=== PATIENT | female | born 1940 | race Caucasian/White ===

== ENCOUNTER 2017-07-10 20:02 | Emergency (ER) | payer OTHER, MEDICARE ==
[~2017-07-10] VITALS: Ht 157.5 cm; Wt 90.4 kg
[~2017-07-10 20:02] MED LIST: ACET-1256 PO; ATOR10TA82 PO; AZEL30SP NAE; CHOL100010 PO; FEXO1TAB58 PO; FLUT0.15 NAE; IBUP-103 PO; KETO0.0216 OP; LISI-787 PO; MULT-506 PO; SALI1SPR3 NAE; [UNRECOGNIZED DRUG - OTHER] PO
[2017-07-10 20:08] VITALS: TEMP 36.7; Ht 157.5 cm; Wt 90.4 kg
[2017-07-10] MEDS ORDERED: LISINOPRIL/HCTZ 20/25MG TAB PO STA (20:30)
--- NOTE | 2017-07-10 20:37 | EMERGENCY ROOM VISIT NOTE ---
History Report prepared by Charisma: Srikanth Mary Under the Supervision of: Dr. Yinka Guadalupe M.D. First contact with patient: 20:20 Chief Complaint: HYPERTENSION Stated Complaint: HIGH BP, FLUSHING, NAUSEA History of Present Illness The patient is a 76 year old female who presents to the Emergency Room with complaints of uncontrolled hypertensive blood pressure readings that she has been experiencing for the past month or so. The patient has a history of hypertension and was on Lisinopril and Hydrochlorothiazide for many years, which controlled her blood pressure well. She had a bout of gout a couple of months ago, and her physician instructed her to stop the Hydrochlorothiazide and start taking Lisinopril and Amlodipine. For 2-3 weeks after taking Amlodipine she felt fatigued and "flushed." Then she had the dosage of Amlodipine increased to 5 mg per day and did not tolerate it well. She stopped this medication two days ago and her blood pressure is rising. She just received a new prescription of Cardizem, but does not want to start this medication. She would like to return to Lisinopril and Hydrochlorothiazide 20 mg and 12.5 BID. She did take 40 mg of Lisinopril this morning. She also notes some worsening upper respiratory congestion over the past week or so. Source of History: patient Onset: 1 month Position: other (Cardiovascular) Quality: other (Hypertensive) Timing: worsening Associated Symptoms: + fatigue Note: Congestion Review of Systems See HPI for pertinent positives & negatives. A total of 10 systems reviewed and were otherwise negative. Past Medical & Surgical Medical Problems: (1) Gout (2) Hypertension (3) Rhinitis Gout Hypertension Rhinitis Family History Diabetes mellitus Hypertension Social History Smoking Status: Former Smoker Marital Status: single Housing Status: lives alone Occupation Status: unemployed Current/Historical Medications Scheduled Atorvastatin (Lipitor), 10 MG PO QAM Azelastine Hcl-Fluticasone Pro (Dymista), 2 SPRY DEMETRIUS BID Cholecalciferol (Vitamin D 1000 Unit), 1,000 INTER.UNIT PO DAILY Fexofenadine-Pseudoephedrine (Devi-D 24 Hour Allergy), 1 TAB PO QPM Fluticasone Propionate (Nasal) (Flonase Allergy Relief), 2 SPRAY DEMETRIUS BID Lisinopril (Zestril), 40 MG PO DAILY Multivitamin (Multivitamin), 1 TAB PO QAM Scheduled PRN Acetaminophen (Tylenol), 500-1,000 MG PO Q8 PRN for Pain Ketotifen Fumarate (Ophth) (Zaditor 0.025% Oph), 1 DROP OP Q8H PRN for ITCHING Saline (Saline Nasal [place]), 1 SPRAY DEMETRIUS DAILY PRN for ALLERGIES Allergies Coded Allergies: Sulfa Antibiotics (Verified Allergy, Severe, WAS TOLD R/T TO BSP?? AND ANAPHYLACTIC REACTION, 07/10/17) Adhesives (Verified Allergy, Unknown, WELTS/RASH, 07/10/17) Aspirin (Verified Allergy, Unknown, RASH, 07/10/17) Grass (Verified Allergy, Unknown, ., 07/10/17) Iodinated Diagnostic Agents (Verified Allergy, Unknown, ANAPHYLAXIS, ) Iodine (Verified Allergy, Unknown, TOPICAL - WELTS, 07/10/17) Molds and Smuts (Verified Allergy, Unknown, ., 07/10/17) POLLEN (Verified Allergy, Unknown, ., 07/10/17) Acetaminophen (Verified Adverse Reaction, Unknown, GI UPSET, 07/10/17) Eggs or Egg-derived Products (Verified Adverse Reaction, Unknown, GI UPSET , 07/10/17) Oxycodone (Verified Adverse Reaction, Unknown, GI UPSET, 07/10/17) Physical Exam Vital Signs Date Time Temp Pulse Resp B/P (MAP) Pulse Ox O2 Delivery O2 Flow Rate FiO2 07/10/17 22:41 76 16 184/95 98 Room Air 07/10/17 22:41 76 16 184/95 98 07/10/17 21:55 74 186/85 96 Room Air 07/10/17 21:06 67 07/10/17 20:45 Room Air 07/10/17 20:08 36.7 79 22 219/102 99 Room Air Physical Exam GENERAL: Patient is in no acute distress. HEENT: No acute trauma, normocephalic atraumatic, mucous membranes moist, no nasal congestion, no scleral icterus. NECK: No stridor, no adenopathy, no meningismus, trachea is midline. LUNGS: Clear to auscultation bilaterally, no wheeze, no rhonchi, breath sounds equal. HEART: Without murmurs gallops or rubs, regular rate and rhythm. ABDOMEN: Soft, nontender, bowel sounds positive, no hernias, no peritonitis. EXTREMITIES: No cyanosis or edema, full range of motion of all the joints without pain or difficulty, no signs for acute trauma. NEUROLOGIC: Oriented x 3, no acute motor or sensory deficits, no focal weakness. No pronator drift or cerebellar dysfunction. SKIN: No rash, no jaundice, no diaphoresis. Medical Decision & Procedures ER Provider Diagnostic Interpretation: Radiology results as stated below per my review and radiologist interpretation: CHEST ONE VIEW PORTABLE CLINICAL HISTORY: 76 years-old Female presenting with EVALUATE ALTERED MENTAL STATUS/WEAKNESS. TECHNIQUE: Portable upright AP view of the chest was obtained. COMPARISON: None. FINDINGS: Examination limited by patient body habitus. Atherosclerosis of the aortic arch. Cardiac silhouette top normal in size. Elevation of the right hemidiaphragm with mildly low right lung volumes. No focal infiltrate. No large effusion or pneumothorax. Apparent opacity at the left lung base likely relates to a prominent pericardial fat pad. Osseous structures normal. Upper abdomen normal. IMPRESSION: 1. No acute cardiopulmonary disease. Electronically signed by: Eric Avila M.D. 07/10/2017 9:05 PM Dictated Date/Time: 07/10/2017 9:04 PM Laboratory Results 07/10/17 21:25 Red Blood Count 4.76, Mean Corpuscular Volume 88.0, Mean Corpuscular Hemoglobin 29.6, Mean Corpuscular Hemoglobin Concent 33.7, Mean Platelet Volume 9.7, Neutrophils (%) (Auto) 72.7, Lymphocytes (%) (Auto) 18.8, Monocytes (%) (Auto) 6.9, Eosinophils (%) (Auto) 0.9, Basophils (%) (Auto) 0.5, Neutrophils # (Auto) 7.68, Lymphocytes # (Auto) 1.99, Monocytes # (Auto) 0.73, Eosinophils # (Auto) 0.09, Basophils # (Auto) 0.05 07/10/17 21:25 Test 07/10/17 20:56 07/10/17 21:25 Urine Color YELLOW Urine Appearance CLOUDY (CLEAR) Urine pH 5.0 (4.5-7.5) Urine Specific [place] 1.016 (1.000-1.030) Urine Protein NEG (NEG) Urine Glucose (UA) NEG (NEG) Urine Ketones NEG (NEG) Urine Occult Blood NEG (NEG) Urine Nitrite NEG (NEG) Urine Bilirubin NEG (NEG) Urine Urobilinogen NEG (NEG) Urine Leukocyte Esterase SMALL (NEG) Urine WBC (Auto) 1-5 /hpf (0-5) Urine RBC (Auto) 0-4 /hpf (0-4) Urine Hyaline Casts (Auto) 1-5 /lpf (0-5) Urine Epithelial Cells (Auto) 10-20 /lpf (0-5) Urine Bacteria (Auto) NEG (NEG) White Blood Count 10.56 K/uL (4.8-10.8) Red Blood Count 4.76 M/uL (4.2-5.4) Hemoglobin 14.1 g/dL (12.0-16.0) Hematocrit 41.9 % (37-47) Mean Corpuscular Volume 88.0 fL (80-100) Mean Corpuscular Hemoglobin 29.6 pg (25-34) Mean Corpuscular Hemoglobin Concent 33.7 g/dl (32-36) Platelet Count 357 K/uL (130-400) Mean Platelet Volume 9.7 fL (7.4-10.4) Neutrophils (%) (Auto) 72.7 % Lymphocytes (%) (Auto) 18.8 % Monocytes (%) (Auto) 6.9 % Eosinophils (%) (Auto) 0.9 % Basophils (%) (Auto) 0.5 % Neutrophils # (Auto) 7.68 K/uL (1.4-6.5) Lymphocytes # (Auto) 1.99 K/uL (1.2-3.4) Monocytes # (Auto) 0.73 K/uL (0.11-0.59) Eosinophils # (Auto) 0.09 K/uL (0-0.5) Basophils # (Auto) 0.05 K/uL (0-0.2) RDW Standard Deviation 42.2 fL (36.4-46.3) RDW Coefficient of Variation 13.2 % (11.5-14.5) Immature Granulocyte % (Auto) 0.2 % Immature Granulocyte # (Auto) 0.02 K/uL (0.00-0.02) Anion Gap 9.0 mmol/L (3-11) Est Creatinine Clear Calc Drug Dose 89.0 ml/min Estimated GFR () 105.2 Estimated GFR (Non- 90.8 BUN/Creatinine Ratio 26.8 (10-20) Calcium Level 8.9 mg/dl (8.5-10.1) Total Bilirubin 0.2 mg/dl (0.2-1) Aspartate Amino Transf (AST/SGOT) 21 U/L (15-37) Alanine Aminotransferase (ALT/SGPT) 30 U/L (12-78) Alkaline Phosphatase 83 U/L (45-117) Troponin I < 0.015 ng/ml (0-0.045) Total Protein 7.4 gm/dl (6.4-8.2) Albumin 3.8 gm/dl (3.4-5.0) Globulin 3.6 gm/dl (2.5-4.0) Albumin/Globulin Ratio 1.1 (0.9-2) Thyroid Stimulating Hormone (TSH) 0.559 uIu/ml (0.300-4.500) Laboratory results reviewed by me. Medications Administered Medications (Trade) Dose Ordered Sig/Solomon Route Start Time Stop Time Status Last Admin Dose Admin HCTZ/Lisinopril (Prinzide 20-25MG Tab) 1 tab NOW STAT PO 07/10/17 20:30 07/10/17 20:33 DC 07/10/17 21:53 1 TAB ECG Indication: other (HTN) Rate (beats per minute): 62 Rhythm: normal sinus Findings: no acute ischemic change, no ectopy Change: Patient's ekg interpreted by me. ED Course 2020: The patient was evaluated in room C3. A complete history and physical exam was performed. 2029: Ordered Lisinopril/HCTZ 1 tablet PO. 2235: Reevaluated the patient. Discussed results and discharge instructions: She verbalized understanding and agreement. She will see her PCP on Thursday and start her old medications. The patient is ready for discharge. Medical Decision Differential Diagnosis includes; medication reaction, essential hypertension, UTI, electrolyte imbalance, anemia, viral illness, sinusitis. There is no leukocytosis or concerning anemia. No significant electrolyte abnormality, kidney failure or hepatitis. The patient appears to be in a euthyroid state. EKG shows a normal sinus rhythm, no acute ischemia. Cardiac enzyme testing times one is not consistent with acute cardiac injury. Urinalysis does not show infection or significant hematuria. Chest film does not show evidence for cardiomegaly, no CHF or pneumonia. The patient presents with high blood pressure. She is having a difficult time using Norvasc. Workup here is benign. The patient was given a dose of lisinopril/hydrochlorothiazide as she had taken before. She tolerated this well. The blood pressure is somewhat improved. I think the patient can be discharged to restart her old blood pressure medication. She will stop the Norvasc and lisinopril and restart the lisinopril /hydrochlorothiazide combination. The patient was reassured. She can return if worsening. She will keep a close watch on her blood pressure. Medication Reconcilliation Current Medication List: was personally reviewed by me Blood Pressure Screening Patient's blood pressure: Elevated blood pressure Blood pressure disposition: Referred to PCP Impression Primary Impression: Hypertension Additional Impression: Medication reaction Scribe Attestation The scribe's documentation has been prepared under my direction and personally reviewed by me in its entirety. I confirm that the note above accurately reflects all work, treatment, procedures, and medical decision making performed by me. Departure Information Dispostion Home / Self-Care Referrals Maddy Bautista M.D. (PCP) Forms HOME CARE DOCUMENTATION FORM, IMPORTANT VISIT INFORMATION, WORK / SCHOOL INSTRUCTIONS Patient Instructions My [facility] [employer] [place] Additional Instructions restart your old blood pressure meds---Lisinopril/HCTZ stop the other meds return for worsening symptoms keep a watch on the pressure as before see gayatri benjamin for a recheck in a few days Problem Qualifiers
--- NOTE | 2017-07-10 21:06 | DIAGNOSTIC IMAGING REPORT ---
CHEST ONE VIEW PORTABLE CLINICAL HISTORY: 76 years-old Female presenting with EVALUATE ALTERED MENTAL STATUS/WEAKNESS. TECHNIQUE: Portable upright AP view of the chest was obtained. COMPARISON: None. FINDINGS: Examination limited by patient body habitus. Atherosclerosis of the aortic arch. Cardiac silhouette top normal in size. Elevation of the right hemidiaphragm with mildly low right lung volumes. No focal infiltrate. No large effusion or pneumothorax. Apparent opacity at the left lung base likely relates to a prominent pericardial fat pad. Osseous structures normal. Upper abdomen normal. IMPRESSION: 1. No acute cardiopulmonary disease. Electronically signed by: Eric Avila M.D. 07/10/2017 9:05 PM Dictated Date/Time: 07/10/2017 9:04 PM
[2017-07-10] MEDS ORDERED: LISI40TA PO (21:15)
[2017-07-10] MEDS ORDERED: KETO0.0216 OP (21:15)
[2017-07-10] MEDS ORDERED: CHOL100027 PO (21:15)
[2017-07-10 21:50] LABS: BASO % 0.5 %; BASO ABS # 0.05 K/uL (0-0.2); EOS % 0.9 %; EOS ABS # 0.09 K/uL (0-0.5); HEMATOCRIT 41.9 % (37-47); HEMOGLOBIN 14.1 g/dL (12.0-16.0); IG# 0.02 K/uL (0.00-0.02); LYMPH % 18.8 %; LYMPH ABS # 1.99 K/uL (1.2-3.4); MEAN CORPUSCULAR HEMOGLOBIN 29.6 pg (25-34); MEAN CORPUSCULAR HGB CONC 33.7 g/dl (32-36); MEAN PLATELET VOLUME 9.7 fL (7.4-10.4); MONO % 6.9 %; MONO ABS # 0.73 K/uL (0.11-0.59); NEUT % 72.7 %; NEUT ABS # 7.68 K/uL (1.4-6.5); PLATELET COUNT 357 K/uL (130-400); RED CELL DISTRIBUTION WIDTH CV 13.2 % (11.5-14.5); RED CELL DISTRIBUTION WIDTH SD 42.2 fL (36.4-46.3); WHITE BLOOD COUNT 10.56 K/uL (4.8-10.8)
[2017-07-10 22:15] LABS: ALBUMIN 3.8 gm/dl (3.4-5.0); ALT/SGPT 30 U/L (12-78); BLOOD UREA NITROGEN 15 mg/dl (7-18); CALCIUM 8.9 mg/dl (8.5-10.1); CARBON DIOXIDE 23 mmol/L (21-32); CREATININE 0.58 mg/dl (0.60-1.20); GLUCOSE 111 mg/dl (70-99); POTASSIUM 3.7 mmol/L (3.5-5.1); SODIUM 139 mmol/L (136-145)
[2017-07-10 22:26] LABS: ALKALINE PHOSPHATASE 83 U/L (45-117); AST/SGOT 21 U/L (15-37); TOTAL PROTEIN 7.4 gm/dl (6.4-8.2)
[2017-07-10 22:41] VITALS: BP 184/95; PULSE 76; O2SAT 98
== END 2017-07-10 22:44 | disposition home or self-care (01) ==
LOC: C.EDB 20:03 → C.EDC 22:44
DX: I10 Essential (primary) hypertension (principal); T46.5X5A Adverse effect of other antihypertensive drugs, initial encounter; M10.9 Gout, unspecified; J31.0 Chronic rhinitis; Z83.3 Family history of diabetes mellitus; Z82.49 Family history of ischemic heart disease and other diseases of the circulatory system; Z87.891 Personal history of nicotine dependence; Z79.899 Other long term (current) drug therapy

== ENCOUNTER 2023-12-26 11:34 | Observation (INO) ==
--- OUTSIDE RECORDS SUMMARY | 2023-12-26 11:45 | External Medical Summary ---
Author Name Unknown Address Unknown Organization [id number]:[facility] [place] - [address] [place] [id number] Laboratory Report Ordering Provider Test Date Status JOHN MURILLO 10/01/2023 10:17:23 Final Observation Date Value Abnormality Reference (Units ) Status Uric Acid 10/01/2023 10:17:23 9.7 Above high normal 2. 4-5.7 (mg/dL) Final Performing Location [facility] [place] - [address] [place] [id number]
--- OUTSIDE RECORDS SUMMARY | 2023-12-26 11:45 | External Medical Summary | Summary of Care ---
Author Name Unknown Organization [facility] Address [address] [place] [address] Phone [phone] Care Team Providers Care Employee Benefits Manager Name Role Phone Alejandro Simmons Primary Care Provider Reason for Visit * Reason Comments Outpatient Testing Encounter Details Date Type Department Care Team (Late st Contact Info) Description 10/01/2023 10:20 AM EDT Laboratory Laboratory, [facility] [address] [place] [id number] [facility] [address] [place] [address] HTN, goal below 130/80; Diabetes mellitus without complication (HCC); Dyslipidemia; Gouty arthritis; Vitamin D deficiency Allergies Active Allergy Reactions Criticality Noted Date Comments Adhesive Tape 12/21/2015 Blister Allopurinol Nausea/vomiting 10/24/2022 Amlodipine Flushing 08/25/2017 Aspirin Rash 02/28/2014 Povidone Iodine 12/21/2015 Colchicine 08/28/2021 Loose stools Egg-Derived Products Other (Please comment) 06/23/2011 No reaction; positive skin test in past/ Environmental 09/29/2000 Grass/molds Iodinated Contrast Media Anaphylaxis High 12/21/2015 Sulfa Antibiotics Rash 02/26/2000 documented as of this encounter (statuses as of 10/01/2023) Medications Medication Sig Dispensed Refills Start Date End Date Status CENTRUM SILVER PO TABS 1 TABLET DAILY 0 Active ZADITOR 0.025 % OP SOLNIndications:All ergic rhinitis Instill into eye. 0 06/23/2011 Act rosamaria NASAL SALINE 0.65 % NA SOLNIndications:Rhi nitis, nonallergic flush each nostril morning and night and every 2-4 hrs as needed for nasal dryness or congestion 1 Bottle 5 03/11/2012 Active Vitamin D, Cholecalciferol, 1000 UNITS CAPSIndications:in evening Take 1 Capsule by mouth in the morning. 0 Active Propylene Glycol 0.6 % Ophthalmic Solution Instill 1 Drop into eye in the morning and 1 Drop in the evening. 0 Active Fexofenadine HCl 180 MG Oral Tablet (Devi)Indication s:takes in evening Take by mouth 1 Tablet in the morning. 90 Tablet 3 08/28/2021 Active Additional Information Patient taking differently:180 mg OralHS, Indications: takes in evening, Reported on 01/31/2023 Acetaminophen ER 650 MG Oral Tablet Extended Release Take 2 Tablets by mouth in the morning and 2 Tablets at noon and 2 Tablets in the evening. 0 Active Fluticasone Propionate 50 MCG/ACT Nasal Suspension (Flonase)Indication s:Rhinitis, nonallergic USE 2 SPRAYS IN EACH NOSTRIL TWO TIMES DAILY 96 mL 3 12/10/2022 Active Lisinopril-hydroCHL OROthiazide 20-12.5 MG Oral Tablet TAKE 1 TABLET BY MOUTH TWO TIMES DAILY 180 Tablet 3 03/22/2023 Active Azelastine HCl 0.1 % Nasal Solution (Astelin)Indication s:Rhinitis, nonallergic SPRAY 2 SPRAYS INTO EACH NOSTRIL TWO TIMES DAILY 90 mL 3 04/20/2023 Active Atorvastatin Calcium 10 MG Oral Tablet (Lipitor)Indication s:Dyslipidemia, goal LDL below 100 TAKE 1 TABLET BY MOUTH EVERY MORNING 90 Tablet 1 05/03/2023 Active predniSONE 20 MG Oral Tablet (Deltasone)Indicati ons:Osteoarthritis of joints of toes of both feet Take 40 mg by mouth for 3-5 days as directed by physician as needed for joint pain. Repeat as needed. 30 Tablet 5 05/11/2023 Active Benzonatate 100 MG Oral CapsuleIndications: Viral URI with cough Take 1 Capsule by mouth 3 times a day as needed for Cough. 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 Senile osteoporosis 03/25/2021 Vitamin D deficiency 08/31/2014 Diverticulosis of colon 08/27/2004 Dyslipidemia 06/24/2001 HTN, goal below 130/80 History of uterine cancer documented as of this encounter (statuses as of 10/01/2023) Resolved Problems Problem Noted Date Diagnosed Date Resolved Date Prediabetes 01/16/2020 01/31/2023 Overview: Per Prediabetes protocol History of colon polyps 03/16/201903/08 Gout of big toe 04/07/2017 03/25/2021 Full thickness macular hole 01/03/2016 03/25/2021 Malaise and fatigue 08/31/2014 04/07/20 17 Screening for thyroid disorder 08/31/2014 11/04/2014 Rhinitis, nonallergic 03/11/20122020 Benign neoplasm of colon 08/27/200402/2019 OCULAR HYPERTENSION 06/24/2001 03/25/20 21 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 PURE HYPERCHOLESTEROLEM 10/07 Allergic rhinitis 03/11/2012 Other disorder of menstruati on and other abnormal bleeding from female genital tract 10/28/2006 Osteoporosis, unspecified documented as of this encounter (statuses as of 10/01/2023) Immunizations Name Administration Dates Next Due COVID-19 mRNA, LNP-s, No Pre serve, 2-Dose Series (Moderna) 08/13/2020,07/10/2020 COVID-19, MRNA-LNP, 23-24, P F, 50 MCG/0.5 mL, 12 YRS AND ABOVE, IM (MODERNA-Spikevax) 03/23/2023 COVID-19, mRNA, LNP-s, PF, B ooster, 100mcg/0.5mg (Moderna) 09/25/2021,04/04/2021 Covid-19, Mrna, Lnp-s, Pf, B ivalent, 50 Mcg, IM, 12 yrs and above (Moderna) 10/31/2022,03/13/2022 Pneumococcal Conjugate Vacc, 13 Valent (Prevnar) 06/26/2016 Pneumococcal Polysaccharide PPV23 (Pneumovax) TD, Preservative Free 06/18/2010 TDAP (age 10 and older)(Boostrix) 06/18/2015 documented as of this encounter Social History Tobacco Use Types Packs/Day Years Used Date Smoking Tobacco: Former Cigarettes 1 30 0 06/08/1962 - 06/08/1992 Smokeless Tobacco: Never Comments:no passive smoke Alcohol Use Standard Drinks/Week Comments Yes 0 (1 standard drink = 0.6 oz pur e alcohol) occasional PHQ-2 Answer Date Recorded PHQ Adult Total Score 0 03/25/2022 Hunger Vital Sign Answer Date Recorded Worried About Running Out of Food in the Last Ye ar Never true 07/18/2019 Ran Out of Food in the Last Year Never true 07/18/2019 Sex and Gender Information Value Date Recorded Sex Assigned at Female 01/16/2020 2:52 PM EDT Gender Identity Female 01/16/2020 2:52 PM EDT Sexual Orientation Straight 01/16/2020 2: 52 PM EDT Job Start Date Occupation Industry Not on file Not on file Not on file documented as of this encounter Plan of Treatment Upcoming Encounters Date Type Department Care Team (Late st Contact Info) Description 10/05/2023 12:20 PM EDT Office Visit Family Practice [facility] [address] [place] [address] Alejandro Simmons DO [address] [place] [address] 07/06/2024 1:00 PM EST Office Visit Rheumatology [place] [id number] [place] [address] Akshat Portillo MD [facility] [place] [address] Pending Results Name Type Priority Associated Diagnoses Date /Time COMPREHENSIVE METABOLIC PANEL Lab Routine Diabetes mellitus without complication (HCC) Dyslipidemia HTN, goal below 130/80 10/01/2023 10:17 AM EDT HEMOGLOBIN A1C Lab Routine Diabetes mellitus without complication (HCC) 10/01/2023 10:17 AM EDT LIPID PANEL WITH DIRECT LDL IF TG IS HIGH Lab Routine Dyslipidemia 10/01/2023 10:17 AM EDT URIC ACID Lab Routine Gouty arthritis 10/01/2023 10:17 AM EDT 25-HYDROXY VITAMIN D Lab Routine Vitamin D deficiency 10/01/2023 10:17 AM EDT ALBUMIN / CREATININE RATIO, URINE Lab Routine Diabetes mellitus without complication (HCC) HTN, goal below 130/80 10/01/2023 10:18 AM EDT Scheduled Procedures Name Priority Associated Diagnoses Date/Ti me COLONOSCOPY FLEXIBLE PROXIMAL DIAGNOSTIC Recall History of colon polyps Health Maintenance Due Date Last Done Comments Diabetic Foot Exam 1960 *BISPHONATE OR OTHER ACCEPTABLE MEDICATION NEEDED FOR OSTEOPOROSIS (REFER TO SMARTSET #1146) 08/30/2021 COLONOSCOPY-EVERY 5 YRS AGES 18-100 11/24/2022 11/24/2017, 11/24/2017, 11/16/2014, Additional history exists Depression Screening 03/25/2023 03/25/2022 HbA1c 04/18/2023 10/16/2022, 03/08, 02/21/2021, Additional history exists GFR 10/17/2023 10/16/2022, 03/08, 02/21/2021, Additional history exists Albumin/Creatinine Ratio 10/25/2023 023, 03/25/2022, 02/27/2021, Additional history exists Diabetic Eye Exam 11/05/2023 11/04/2022, , 12/24/2021, Additional history exists Influenza Vaccine (FLU shot) (Season Ended) 2024 DTaP,Tdap,and Td Vaccines (2 - Td or Tdap) 06/18/2025 06/18/2015, 06/18/2010, 01/27/1996 DXA Scan Discontinued 09/14/2017, 04/0 12/2014, 05/10/2012, Additional history exists Pneumococcal Vaccine: 65+ Years Completed 07/16/2018, 06/26/2016 VITAMIN D LEVEL ONCE IN A LIFETIME-USE SMARTSET# 43137 Completed 08/04/2022, 11/04/2014, 06/25/2011, Additional history exists COVID-19 Vaccine Completed 03/23/2023, , 03/13/2022, Additional history exists GARDASIL-HPV IMMUNIZATION SERIES Aged Out No longer eligible based on patient's age to complete this topic Hepatitis B Aged Out No longer eligi ble based on patient's age to complete this topic MENINGOCOCCAL (MENACTRA/MENVEO) Aged Out No longer eligible based on patient's age to complete this topic Zoster Vaccines Discontinued documented as of this encounter Medical Devices Not on filedocumented as of this encounter Procedures Procedure Name Priority Date/Time Associated Diagnosis Comments DIFFERENTIAL, AUTOMATED Routine 10/01/2023 10:17 AM EDT HTN, goal below 130/80 CBC Routine 10/01/2023 10:17 AM EDT HTN, goal below 130/80 CBC Routine 10/01/2023 10:17 AM EDT HTN, goal below 130/80 documented in this encounter Results * DIFFERENTIAL, AUTOMATED (10/01/2023 10:17 AM EDT) WBC 8.77 4.00 - 10.80 K/uL 10/01/2023 10:25 AM EDT [facility] Neutrophils % 56.7 40.0 - 75.0 % 10/01/2023 10:25 AM EDT [facility] Lymphocytes % 31.2 18.0 - 42.0 % 10/01/2023 10:25 AM EDT [facility] Monocytes % 8.3 1.0 - 11.0 % 10/01/2023 10:25 AM EDT [facility] Eosinophils % 3.3 0.0 - 6.0 % 10/01/2023 10:25 AM EDT [facility] Basophils % 0.5 0.0 - 2.0 % 10/01/2023 10:25 AM EDT [facility]10 Absolute Neutrophils 4.97 1.80 - 7.70 K/uL 10/01/2023 10:25 AM EDT [facility] Absolute Lymphocytes 2.74 1.00 - 4.80 K/ul 10/01/2023 10:25 AM EDT [facility]10 Absolute Monocytes 0.73 0.00 - 1.10 K/uL 10/01/2023 10:25 AM EDT [facility] 57-10 Absolute Eosinophils 0.29 0.00 - 0.70 K/uL 10/01/2023 10:25 AM EDT [facility] 57-10 Absolute Basophils 0.04 0.00 - 0.20 K/uL 10/01/2023 10:25 AM EDT [facility]10 Blood Venous blood specimen / Unknown Venipuncture / Unknown 10/01/2023 10:17 AM EDT 10/01/2023 10:17 AM EDT Alejandro Simmons DO LAB BLOOD ORDER [facility]10 [address] [place] [address] * CBC (10/01/2023 10:17 AM EDT) WBC 8.77 4.00 - 10.80 K/uL 10/01/2023 10:25 AM EDT [facility]10 RBC 4.55 3.85 - 5.15 M/uL 10/01/2023 10:25 AM EDT [facility]10 HGB 13.2 12.0 - 15.3 g/dL 10/01/2023 10:25 AM EDT [facility]10 HCT 41.1 36.0 - 45.2 % 10/01/2023 10:25 AM EDT [facility]10 MCV 90.3 81.5 - 97.5 fL 10/01/2023 10:25 AM EDT [facility]10 MCH 29.0 27.0 - 34.0 pg 10/01/2023 10:25 AM EDT [facility]10 MCHC 32.1 32.0 - 36.0 g/dL 10/01/2023 10:25 AM EDT [facility]10 RDW 13.0 11.5 - 15.5 % 10/01/2023 10:25 AM EDT [facility]10 PLT 375 140 - 400 K/uL 10/01/2023 10:25 AM EDT [facility]10 MPV 9.1 6.6 - 11.1 fL 10/01/2023 10:25 AM EDT [facility]10 Blood Venous blood specimen / Unknown Venipuncture / Unknown 10/01/2023 10:17 AM EDT 10/01/2023 10:17 AM EDT Alejandro Simmons DO LAB BLOOD ORDER [facility] [address] [place] [address] documented in this encounter Visit Diagnoses Diagnosis HTN, goal below 130/80 Unspecified essential hypertension Diabetes mellitus without complication (HCC) Type II or unspecified type diabetes mellitus without mention of complication, not stated as uncontrolled Dyslipidemia Other and unspecified hyperlipidemia Gouty arthritis Gouty arthropathy, unspecified Vitamin D deficiency Unspecified vitamin D deficiency documented in this encounter Care Teams Employee Benefits Manager Relationship Specialty Start Date End Date Alejandro Simmons DO [address] [address] PCP - General Family Medicine 07/07/19 documented as of this encounter
--- OUTSIDE RECORDS SUMMARY | 2023-12-26 11:45 | External Medical Summary | Summary of Care ---
Author Name Unknown Organization [facility] Address [address] [place] [address] Phone [phone] Care Team Providers Care Finisher Accordion Name Role Phone Alejandro Simmons DO Primary Care Provider Reason for Referral * Evaluate & Treat - Unlimited Visits (Within 10 days (routine)) - Authorized Specialty Diagnoses / Procedures Referred By Syed benítez Referred To Contact Podiatry Diagnoses Gouty arthritis Alejandro Simmons DO [address] [facility] [place] [address] Referral ID Status Reason Start Date Expiration Date Visits Requested Visits Authorized [id number] Authorized Specialty Services Required 10/05/[phone] Question Answer Referral Priority Within 10 days (routine) Where should this appointment be scheduled? [facility] Which condition are you referring this patient for? General Foot Pain * Evaluate & Treat - Unlimited Visits (Within 10 days (routine)) - Authorized Specialty Diagnoses / Procedures Referred By Syed benítez Referred To Contact Dietitian / Nutrition Services Diagnoses Goutivett arthritis Alejandro Simmons DO [address] [employer] [facility] [place] [address] Referral ID Status Reason Start Date Expiration Date Visits Requested Visits Authorized [id number] Authorized Specialty Services Required 10/05/[phone] Question Answer Referral Priority Within 10 days (routine) Where should this appointment be scheduled? [facility] What condition is the patient being seen for? All other conditions Other: Other: Use Comment Box - low purine diet, gout Is this for 65 Forward? No Comments Medical Nutrition Therapy Reason for Visit * Reason Comments Return Visit Pt here for 8 mo ret urn. Pt had last covid booster on 04/02/23, questions when to get next. Discuss would like to see Metal Crafts Teacher to understand high Purine foods. Would like Laboratory Tech referral to have Orthotics done as she has bilat feet gouty arthritis. 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 30 Tablet 5 05/11/2023 Active Additional Information Patient not taking.Reported on 10/05/2023 Benzonatate 100 MG Oral CapsuleIndications: Viral URI with cough Take 1 Capsule by mouth 3 times a day as needed for Cough. 30 Capsule 1 07/05/2023 Active Additional Information Patient not taking.Reported on 10/05/2023 documented as of this encounter (statuses as of 10/05/2023) Active Problems Problem Noted Date Diagnosed Date PVC (premature ventricular contraction) 10/05/19 24 Diabetes mellitus without complication Osteoarthritis of ankles, bilateral 10/21/2022 Gouty arthritis 03/26/2021 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 Senile osteoporosis 03/25/2021 Vitamin D deficiency 08/31/2014 Diverticulosis of colon 08/27/2004 Dyslipidemia 06/24/2001 HTN, goal below 130/80 History of uterine cancer documented as of this encounter (statuses as of 10/05/2023) Resolved Problems Problem Noted Date Diagnosed Date [...] as of this encounter (statuses as of 10/05/2023) Immunizations Name Administration Dates Next Due COVID-19 [...] 0 [birth year]08/1960 - 06/08/1992 Smokeless Tobacco: Never Tobacco Cessation:Counseling Given: Not Answered Comments:no passive smoke Alcohol Use Standard Drinks/Week [...] on file documented as of this encounter Last Filed Vital Signs Vital Sign Reading Time Taken Comments Blood Pressure 136/72 10/05/2023 12:17 PM EDT Pulse 66 10/05/2023 12:17 PM EDT Temperature 36.4 C (97.5 F) 10/05/2023 12:17 PM E DT Respiratory Rate 16 10/05/2023 12:17 PM EDT Oxygen Saturation 96% 10/05/2023 12:17 PM EDT Inhaled Oxygen Concentration - - Weight 98.1 kg (216 lb 4 oz) 10/05/2023 12:17 PM EDT Height - - Body Mass Index 38.92 07/05/2023 12:21 PM EST documented in this encounter Progress Notes * Alejandro Simmons, - 10/05/2023 12:37 PM EDT Images from the original note were not included. 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 Pt had last covid booster on 04/02/23, questions when to get next. /Discuss would like to see Metal Crafts Teacher to understand high Purine foods. Would like Laboratory Tech referral to have Orthotics done as she has bilat feet gouty arthritis.) Presents today in f/u Labs are back for review Is compliant with diabetic diet And has kept blood sugar down Feels good overall Denies chest pain, palpitations, etc Physical Exam Vitals: 10/05/23 1217 Temp: 36.4 C (97.5 F) Pulse: 66 Resp: 16 SpO2: 96% BP: 136/72 Physical Exam Constitutional: Appearance: Normal appearance. HENT: Head: Normocephalic and atraumatic. Eyes: Extraocular Movements: Extraocular movements intact. Pupils: Pupils are equal, round, and reactive to light. Cardiovascular: Rate and Rhythm: Bradycardia present. Pulmonary: Effort: Pulmonary effort is normal. Breath sounds: Normal breath sounds. Neurological: General: No focal deficit present. Mental Status: She is alert and oriented to person, place, and time. Psychiatric: Mood and Affect: Mood normal. Behavior: Behavior normal. Wrap-Up Follow-up: Return in about 6 months (around 04/05/2024). | Check-out note: Every other with Thiede if needed for 6 month f/u Time: Total time today was 45 minutes excluding any time spent in the performance of separately billed services. documented in this encounter Nursing Notes * Vandana Lindo LPN - 10/05/2023 12:27 PM EDT The patient has been properly identified by confirmation of name and date of . Chief Complaint Patient presents with Return Visit Pt here for 8 mo return. Pt had last covid booster on 04/02/23, questions when to get next. Discuss would like to see Metal Crafts Teacher to understand high Purine foods. Would like Laboratory Tech referral to have Orthotics done as she has bilat feet gouty arthritis. documented in this encounter Plan of Treatment Upcoming Encounters Date Type Department Care Team (Late st Contact Info) Description 10/14/2023 11:00 AM EDT Nutrition Services Nutrition, [facility] [address] [place] [address] Sariah Mackenzie RDN [address] [place] [address] 10/27/2023 2:00 PM EDT Office Visit Podiatry [facility] [address] [place] [address] Monica Santos DPM [address] [place] [address] 07/06/2024 1:00 PM EST Office Visit Rheumatology [address] [place] [address] Akshat Portillo MD [facility] [place] [address] 10/06/2024 3:40 PM EDT Office Visit Family Practice [facility] [address] [place] [address] Alejandro Simmons DO [address] [place] [address] Scheduled Orders Name Type Priority Associated Diagnoses Orde r Schedule CBC WITH WBC DIFFERENTIAL Lab Routine HTN, goal below 130/80 Expected: 04/02/2024 (Approximate), Expires: 10/04/2024 COMPREHENSIVE METABOLIC PANEL Lab Routine Dyslipidemia, goal LDL below 100 Dyslipidemia Expected: 04/02/2024 (Approximate), Expires: 10/04/2024 HEMOGLOBIN A1C Lab Routine Diabetes mellitus without complication (HCC) Expected: 04/02/2024 (Approximate), Expires: 10/04/2024 ALBUMIN / CREATININE RATIO, URINE Lab Routine Diabetes mellitus without complication (HCC) HTN, goal below 130/80 Expected: 04/02/2024 (Approximate), Expires: 10/04/2024 LIPID PANEL WITH DIRECT LDL IF TG IS HIGH Lab Routine Dyslipidemia, goal LDL below 100 Expected: 04/02/2024 (Approximate), Expires: 10/04/2024 25-HYDROXY VITAMIN D Lab Routine Vitamin D deficiency Expected: 04/02/2024 (Approximate), Expires: 10/04/2024 URIC ACID Lab Routine Gouty arthritis Expected: 04/02/2024 (Approximate), Expires: 10/04/2024 Scheduled Procedures Name Priority Associated Diagnoses Date/Ti me COLONOSCOPY FLEXIBLE PROXIMAL DIAGNOSTIC Recall History of colon polyps Scheduled Referrals Name Type Priority Associated Diagnoses Orde r Schedule NUTRITION-CLINICAL DIETITIAN REFERRAL OP Referral Within 10 days (routine) Gouty arthritis Ordered: 10/05/2023 PODIATRY REFERRAL OP Referral Within 10 d ays (routine) Gouty arthritis Ordered: 10/05/2023 Health Maintenance Due Date Last Done Comments Diabetic Foot Exam 1958 *BISPHONATE OR OTHER ACCEPTABLE MEDICATION NEEDED FOR OSTEOPOROSIS (REFER TO SMARTSET #1146) 08/30/2021 Diabetic Eye Exam 11/05/2023 11/04/2022, , 12/24/2021, Additional history exists Influenza Vaccine (FLU shot) (Season Ended) 2024 HbA1c 04/01/2024 10/01/2023, 10/06, 03/20/2022, Additional history exists Albumin/Creatinine Ratio 09/30/202409/30/ 024, 10/24/2022, 03/25/2022, Additional history exists GFR 09/30/2024 10/01/2023, 10/06, 03/20/2022, Additional history exists Depression Screening 10/04/2024 10/05/2023 DTaP,Tdap,and Td Vaccines (2 - Td or Tdap) 06/18/2025 06/18/2015, 06/18/2010, 01/27/1996 DXA Scan Discontinued 09/14/2017, 12/2014, 05/10/2012, Additional history exists Colonoscopy Discontinued 11/24/2017, 11/06, 11/16/2014, Additional history exists RETIRED - COLONOSCOPY-EVERY 5 YRS AGES 18-100 Discontinued 11/24/2017, 11/24/2017, 11/16/2014, Additional history exists Pneumococcal Vaccine: 65+ Years Completed 07/16/2018, 06/26/2016 COVID-19 Vaccine Completed 03/23/2023, , 03/13/2022, Additional history exists VITAMIN D LEVEL ONCE IN A LIFETIME-USE SMARTSET# [id number] Completed 10/01/2023, 08/04/2022, 11/04/2014, Additional history exists GARDASIL-HPV IMMUNIZATION SERIES Aged [...] Not on filedocumented as of this encounter Visit Diagnoses Diagnosis Diabetes mellitus without complication (HCC)- Primary Type II or unspecified type diabetes mellitus without mention of complication, not stated as uncontrolled Gouty arthritis Gouty arthropathy, unspecified 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
--- OUTSIDE RECORDS SUMMARY | 2023-12-26 11:45 | External Medical Summary ---
Author Name Unknown Address Unknown Organization K01:LABORATORY [facility] [place] - [address] [place] [address] Laboratory Report Ordering Provider Test Date Status JOHN MURILLO 10/01/2023 10:18:35 Final Normal: <30 mg/g creatinine< br/>High: 30-300 mg/g creatinine
Very High: >300 mg/g creatinine
Nephrotic: >2200 mg/g creatinine Observation Date Value Abnormality Reference (Units ) Status Albumin, Urine 10/01/2023 10:18:35 <1.20 (mg/dL) Final Creatinine, Urine 10/01/2023 10:18:35 64 (mg/dL) Final Albumin/Creatinine [Mass Ratio] in Urine 10/01/2023 10:18:35 <19 <30 (mg/g Creat) Final Performing Location [facility]ORY [facility] [place] - [address] [place] [address]
--- OUTSIDE RECORDS SUMMARY | 2023-12-26 11:45 | External Medical Summary ---
Author Name Unknown Address Unknown Organization K0G:[facility]ATORY [facility] [address] - [address] [place] [address] Laboratory Report Ordering Provider Test Date Status JOHN MURILLO 10/01/2023 10:17:23 Final Observation Date Value Abnormality Reference (Units ) Status BUN 10/01/2023 10:17:23 23 Above high normal 6-20 (mg/dL) Final Creatinine 10/01/2023 10:17:23 0.7 0.5-1.0 (mg/dL) Final Glomerular filtration rate/1.73 sq M.predicted [Volume Rate/Area] in Serum, Plasma or Blood by Creatinine-based formula (CKD-EPI) 10/01/2023 10:17:23 82 >=60 (mL/min) Final eGFR is calculated based on the CKD-EPI 2020 equation Sodium 10/01/2023 10:17:23 138 135-146 (m mol/L) Final Potassium 10/01/2023 10:17:23 4.2 3.5-5.1 (m mol/L) Final Cl 10/01/2023 10:17:23 101 98-107 (mm ol/L) Final CO2 10/01/2023 10:17:23 21 Below low normal 22- 32 (mmol/L) Final Anion gap 10/01/2023 10:17:23 16 Above high normal 7- 15 (mmol/L) Final Glucose 10/01/2023 10:17:23 111 70-120 (mg /dL) Final Albumin 10/01/2023 10:17:23 4.3 3.8-5.0 (g /dL) Final AST (Aspartate aminotransferase) 10/01/2023 10:17:23 17 10-35 (U/L) Fin al Alk Phos 10/01/2023 10:17:23 87 35-130 (U/ L) Final Bilirubin, Total 10/01/2023 10:17:23 0.3 <=1 .2 (mg/dL) Final Calcium 10/01/2023 10:17:23 9.7 8.4-10.2 ( mg/dL) Final Protein 10/01/2023 10:17:23 7.1 6.0-8.3 (g /dL) Final ALT (Alanine aminotransferase) 10/01/2023 10:17:23 23 10-35 (U/L) Pro santos Performing Location [facility] [address] - [address] [place] [address]
--- OUTSIDE RECORDS SUMMARY | 2023-12-26 11:45 | External Medical Summary ---
Author Name Unknown Address Unknown Organization [id number][facility] [address] [place] [address] Laboratory Report Ordering Provider Test Date Status JOHN MURILLO 10/01/2023 10:17:23 Final Observation Date Value Abnormality Reference (Units ) Status SYNC LEUKOCYTES IN BLOOD BY AUTOMATED COUNT 10/01/2023 10:17:23 8.77 4.00-10.80 (K/uL) Final Segs 10/01/2023 10:17:23 56.7 40.0-75.0 (%) Final Lymphs % 10/01/2023 10:17:23 31.2 18.0-42.0 (%) Final Monos 10/01/2023 10:17:23 8.3 1.0-11.0 (%) Final Eosinophils 10/01/2023 10:17:23 3.3 0.0-6.0 (%) Final Basos 10/01/2023 10:17:23 0.5 0.0-2.0 (%) Final Absolute Segs 10/01/2023 10:17:23 4.97 1.80-7.70 (K/uL) Final Lymphs, absolute 10/01/2023 10:17:23 2.74 1.00-4.80 (K/ul) Final Monos, Abs 10/01/2023 10:17:23 0.73 0.00-1.10 (K/uL) Final Eos, Abs 10/01/2023 10:17:23 0.29 0.00-0.70 (K/uL) Final Basos, Abs 10/01/2023 10:17:23 0.04 0.00-0.20 (K/uL) Final Performing Location [facility] - [address] [place] [address]
--- OUTSIDE RECORDS SUMMARY | 2023-12-26 11:45 | External Medical Summary | Summary of Care ---
Author Name Unknown Organization [facility] Address [address] [place] [address] Phone [phone] Care Team Providers Care Block Sawyer Name Role Phone Lidia Simmons DO Primary Care Provider Reason for Visit * Reason Comments eRx-Medication Refill Encounter Details Date Type Department Care Team (Late st Contact Info) Description 10/24/2023 [facility]ill [facility] [address] [facility] [address] Delphine Simmons MD [address] [place] [address] Dyslipidemia, goal LDL below 100 Allergies Active Allergy Reactions Criticality Noted Date Comments Adhesive Tape 12/21/2015 Blister Allopurinol Nausea/vomiting 10/24/2022 Amlodipine Flushing 08/25/2017 Aspirin Rash 02/28/2014 Povidone Iodine 12/21/2015 Colchicine 08/28/2021 Loose stools Egg-Derived Products Other (Please comment) 06/23/2011 No reaction; positive skin test in past/ Environmental 09/29/2000 Grass/molds Iodinated Contrast Media Anaphylaxis High 12/21/2015 Sulfa Antibiotics Rash 02/26/2000 documented as of this encounter (statuses as of 10/26/2023) Medications Medication Sig Dispensed Refills Start Date End Date Status CENTRUM SILVER PO TABS 1 TABLET DAILY Active ZADITOR 0.025 % OP SOLNIndications: Allergic rhinitis Instill into eye. 06/23/2011 Active NASAL SALINE 0.65 % NA SOLNIndications: Rhinitis, nonallergic flush each nostril morning and night and every 2-4 hrs as needed for nasal dryness or congestion 1 Bottle 5 03/11/2012 Active Vitamin D, Cholecalciferol, 1000 UNITS CAPSIndications: in evening Take 1 Capsule by mouth in the morning. Active Propylene Glycol 0.6 % Ophthalmic Solution Instill 1 Drop into eye in the morning and 1 Drop in the evening. Active Fexofenadine HCl 180 MG Oral Tablet (Devi)Indicat ions:takes in evening Take by mouth 1 Tablet in the morning. 90 Tablet 3 08/28/2021 Active Additional Information Patient taking differently:180 mg OralHS, Indications: takes in evening, Reported on 01/31/2023 Acetaminophen ER 650 MG Oral Tablet Extended Release Take 2 Tablets by mouth in the morning and 2 Tablets at noon and 2 Tablets in the evening. Active Fluticasone Propionate 50 MCG/ACT Nasal Suspension (Flonase)Indicat ions:Rhinitis, nonallergic USE 2 SPRAYS IN EACH NOSTRIL TWO TIMES DAILY 96 mL 3 12/10/2022 Active Lisinopril-hydro CHLOROthiazide 20-12.5 MG Oral Tablet TAKE 1 TABLET BY MOUTH TWO TIMES DAILY 180 Tablet 3 03/22/2023 Active Azelastine HCl 0.1 % Nasal Solution (Astelin)Indicat ions:Rhinitis, nonallergic SPRAY 2 SPRAYS INTO EACH NOSTRIL TWO TIMES DAILY 90 mL 3 04/20/2023 Active predniSONE 20 MG Oral Tablet (Deltasone)Indic ations:Osteoarth ritis of joints of toes of both feet Take 40 mg by mouth for 3-5 days as directed by physician as needed for joint pain. Repeat as needed. 30 Tablet 5 05/11/2023 Active Additional Information Patient not taking.Reported on 10/05/2023 Benzonatate 100 MG Oral CapsuleIndicatio ns:Viral URI with cough Take 1 Capsule by mouth 3 times a day as needed for Cough. 30 Capsule 1 07/05/2023 Active Additional Information Patient not taking.Reported on 10/05/2023 Atorvastatin Calcium 10 MG Oral Tablet (Lipitor)Indicat ions:Dyslipidemi a, goal LDL below 100 TAKE 1 TABLET BY MOUTH EVERY MORNING 90 Tablet 1 10/26/2023 Active Atorvastatin Calcium 10 MG Oral Tablet (Lipitor)Indicat ions:Dyslipidemi a, goal LDL below 100 TAKE 1 TABLET BY MOUTH EVERY MORNING 90 Tablet 1 05/03/2023 4 Discontinued documented as of this encounter (statuses as of 10/26/2023) Active Problems Problem Noted Date Diagnosed Date PVC (premature ventricular contraction) 10/05/19 24 Diabetes mellitus without complication 3 Osteoarthritis of ankles, bilateral 10/21/2022 Gouty arthritis 03/26/2021 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 Senile osteoporosis 03/25/2021 Vitamin D deficiency 08/31/2014 Diverticulosis of colon 08/27/2004 Dyslipidemia 06/24/2001 HTN, goal below 130/80 History of uterine cancer documented as of this encounter (statuses as of 10/26/2023) Resolved Problems Problem Noted Date Diagnosed Date [...] as of this encounter (statuses as of 10/26/2023) Immunizations Name Administration Dates Next Due COVID-19 [...] on file documented as of this encounter Miscellaneous Notes * Telephone Encounter - Halie Lowe [facility] - 10/26/2023 9:51 AM EDTSigned Prescriptions: Disp Refills Atorvastatin Calcium 10 MG Oral Tablet (Li*90 Tab*1 Sig: TAKE 1 TABLET BY MOUTH EVERY MORNINGAuthorizing Provider: LIDIA SIMMONS User: HALIE LOWE documented in this encounter Plan of Treatment Upcoming Encounters Date Type Department Care Team (Late st Contact Info) Description 10/27/2023 2:00 PM EDT Office Visit Podiatry [facility] [address] [place] [address] Monica Santos DPM [address] [place] [address] 04/07/2024 2:00 PM EDT Office Visit [facility] [address] [place] [address] Lamar Jamil CRNP [address] [place] [address] 07/06/2024 1:00 PM EST Office Visit Rheumatology [address] [place] [address] Akshat Portillo MD [address] [place] [address] [place] [address] 10/06/2024 3:40 PM EDT Office Visit [facility] [address] [place] [address] Lidia Simmons DO [address] [place] [address] Scheduled Procedures Name Priority Associated Diagnoses Date/Ti me COLONOSCOPY FLEXIBLE PROXIMAL DIAGNOSTIC Recall History of colon polyps Health Maintenance Due Date Last Done Comments Diabetic Foot Exam 1960 *BISPHONATE OR OTHER ACCEPTABLE MEDICATION NEEDED FOR OSTEOPOROSIS (REFER TO SMARTSET #1146) 08/30/2021 COVID-19 Vaccine ( season) 2023 03/23/2023, 10/31/2022, 03/13/2022, Additional history exists Diabetic Eye Exam 11/05/2023 11/04/2022, , 12/24/2021, Additional history exists Influenza Vaccine (FLU shot) (Season Ended) 2024 HbA1c 04/01/2024 10/01/2023, 10/06, 03/20/2022, Additional history exists Albumin/Creatinine Ratio 09/30/2024 024, 10/24/2022, 03/25/2022, Additional history exists GFR [...] D LEVEL ONCE IN A LIFETIME-USE SMARTSET# 22647 Completed 10/01/2023, 08/04/2022, 11/04/2014, Additional history exists [...] as of this encounter Visit Diagnoses Diagnosis Dyslipidemia, goal LDL below 100 Other and unspecified hyperlipidemia documented in this encounter Care Teams Block Sawyer Relationship Specialty Start Date End Date Lidia Simmons DO [address] [place] [address] PCP - General Family Medicine 07/07/19 documented as of this encounter
--- OUTSIDE RECORDS SUMMARY | 2023-12-26 11:45 | External Medical Summary | Summary of Care ---
Author Name Unknown Organization [facility] Address [address] [place] [address] Phone [phone] Care Team Providers Care Child Study Team Director Name Role Phone Alejandro Simmons Primary Care Provider Reason for Visit * Reason Comments Rheum Follow Up Follow up - gout Encounter Details Date Type Department Care Team (Latest Contact Info) Description 07/01/2023 2:00 PM EST Office Visit Rheumatology [place] [phone] [employer] [place] [address] Akshat Portillo MD [address] [employer] [place] [address] Gouty arthritis*; Generalized osteoarthritis Allergies Active Allergy Reactions Criticality Noted Date Comments Adhesive Tape 12/21/2015 Blister Allopurinol Nausea/vomiting 10/24/2022 Amlodipine Flushing 08/25/2017 Aspirin Rash 02/28/2014 Povidone Iodine 12/21/2015 Colchicine 08/28/2021 Loose stools Eggs Or Egg-Derived Products Other (Please comment) 06/23/2011 No reaction; positive skin test in past/ Environmental 09/29/2000 Grass/molds Iodinated Contrast Media Anaphylaxis High 12/21/2015 Sulfa Antibiotics Rash 02/26/2000 documented as of this encounter (statuses as of 07/01/2023) Medications Medication Sig Dispensed Refills Start Date End Date Status CENTRUM SILVER PO TABS 1 TABLET DAILY 0 Active ZADITOR 0.025 % OP SOLNIndications:A llergic rhinitis Instill into eye. 0 06/23/2011 A ctive NASAL SALINE 0.65 % NA SOLNIndications:R hinitis, nonallergic flush each nostril morning and night and every 2-4 hrs as needed for nasal dryness or congestion 1 Bottle 5 03/11/2012 Active Vitamin D, Cholecalciferol, 1000 UNITS CAPSIndications:i n evening Take 1 Capsule by mouth in the morning. 0 Active Propylene Glycol 0.6 % Ophthalmic Solution Instill 1 Drop into eye in the morning and 1 Drop in the evening. 0 Active Fexofenadine HCl 180 MG Oral Tablet (Devi)Indicati ons:takes in evening Take by mouth 1 Tablet [...] Active Fluticasone Propionate 50 MCG/ACT Nasal Suspension (Flonase)Indicati ons:Rhinitis, nonallergic USE 2 SPRAYS IN EACH NOSTRIL TWO TIMES DAILY 96 mL 3 12/10/2022 Active Lisinopril-hydroC HLOROthiazide 20-12.5 MG Oral Tablet TAKE 1 TABLET BY MOUTH TWO TIMES DAILY 180 Tablet 3 03/22/2023 Active Azelastine HCl 0.1 % Nasal Solution (Astelin)Indicati ons:Rhinitis, nonallergic SPRAY 2 SPRAYS INTO EACH NOSTRIL TWO TIMES DAILY 90 mL 3 04/20/2023 Active Atorvastatin Calcium 10 MG Oral Tablet (Lipitor)Indicati ons:Dyslipidemia, goal LDL below 100 TAKE 1 TABLET BY MOUTH EVERY MORNING 90 Tablet 1 05/03/2023 Active predniSONE 20 MG Oral Tablet (Deltasone)Indica tions:Osteoarthri tis of joints of toes of both feet Take 40 mg by mouth for 3-5 days as directed by physician as needed for joint pain. Repeat as needed. 30 Tablet 5 05/11/2023 Active Ondansetron HCl 4 MG Oral TabletIndications :Swelling of ankle joint, left,Gouty arthritis,Nausea without vomiting Take 1 Tablet by mouth every 8 hours as needed for Nausea. 30 Tablet 0 10/15/2022 4 Discontinue d(Medicatio n List Clean Up) documented as of this encounter (statuses as of 07/01/2023) Active Problems Problem Noted Date Diagnosed Date Diabetes mellitus without complication 3 Osteoarthritis of ankles, bilateral 10/21/2022 Gouty arthritis 03/26/2021 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 Senile osteoporosis 03/25/2021 Vitamin D deficiency 08/31/2014 Diverticulosis of colon 08/27/2004 Dyslipidemia 06/24/2001 HTN, goal below 130/80 History of uterine cancer documented as of this encounter (statuses as of 07/01/2023) Resolved Problems Problem Noted Date Diagnosed Date [...] as of this encounter (statuses as of 07/01/2023) Immunizations Name Administration Dates Next Due COVID-19 [...] Date Smoking Tobacco: Former Cigarettes 1 30 Q uit: 06/08/1992 Smokeless Tobacco: Never Tobacco Cessation:Counseling Given: [...] Sign Reading Time Taken Comments Blood Pressure - - Pulse - - Temperature 36.5 C (97.7 F) 07/01/2023 1:57 PM ES T Respiratory Rate - - Oxygen Saturation - - Inhaled Oxygen Concentration - - Weight 97.1 kg (214 lb) 07/01/2023 1:57 PM EST Height - - Body Mass Index 38.52 08/04/2022 10:11 AM EST documented in this encounter Progress Notes * Akshat Portillo MD - 07/01/2023 2:22 PM EST Subjective: Patient seen today for further follow up evaluation of osteoarthritis, gout. Since the last visit she did not tolerate colchicine or allopurinol. I had mentioned uloric but given the cardiovascular side effects she decided not to take the medication. She treats her flares with short courses steroids. She has had a couple flare since last visit. Last uric acid was 7.4. She also deals with generalized arthritis. She has some increasing arthritis in her hands. Has a new nodule of the left 2nd DIP.She has a handicap parking placard to fill out. Musculoskeletal ROS: . Abnormal: joint pain . Pain scale (0-10): 0 rated currently Other ROS: . Constitutional: normal . Head normal . Eyes: normal . Ears, nose, throat, mouth: normal . Cardiovascular: normal . Respiratory: normal . Gastrointestinal: normal . Genitourinary: normal All other ROS reviewed and negative Social History: Social History Tobacco Use Smoking status: Former Packs/day: 1.00 Years: 30.00 Additional pack years: 0.00 Total pack years: 30.00 Types: Cigarettes Quit date: 06/08/1992 Years since quittin.0 Smokeless tobacco: Never Tobacco comments: no passive smoke Substance Use Topics Alcohol use: Yes Comment: occasional Vaping/E-Cigarette Use Vaping/E-Cigarette Use Never User Vaping/E-Cigarette Substances Vaping/E-Cigarette Devices Current Outpatient Medications Medication Sig Dispense Refill CENTRUM SILVER PO TABS 1 TABLET DAILY ZADITOR 0.025 % OP SOLN Instill into eye. NASAL SALINE 0.65 % NA SOLN flush each nostril morning and night and every 2-4 hrs as needed for nasal dryness or congestion 1 Bottle 5 Vitamin D, Cholecalciferol, 1000 UNITS CAPS Take 1 Capsule by mouth in the morning. Propylene Glycol 0.6 % Ophthalmic Solution Instill 1 Drop into eye in the morning and 1 Drop in theevening. Fexofenadine HCl 180 MG Oral Tablet (Devi) Take by mouth 1 Tablet in the morning. (Patient taking differently: Take 1 Tablet by mouth at bedtime.) 90 Tablet 3 Acetaminophen ER 650 MG Oral Tablet Extended Release Take 2 Tablets by mouth in the morning and 2 Tablets at noon and 2 Tablets in the evening. Fluticasone Propionate 50 MCG/ACT Nasal Suspension (Flonase) USE 2 SPRAYS IN EACH NOSTRIL TWO TIMESDAILY 96 mL 3 Lisinopril-hydroCHLOROthiazide 20-12.5 MG Oral Tablet TAKE 1 TABLET BY MOUTH TWO TIMES DAILY 180 Tablet 3 Azelastine HCl 0.1 % Nasal Solution (Astelin) SPRAY 2 SPRAYS INTO EACH NOSTRIL TWO TIMES DAILY 90 mL 3 Atorvastatin Calcium 10 MG Oral Tablet (Lipitor) TAKE 1 TABLET BY MOUTH EVERY MORNING 90 Tablet 1 predniSONE 20 MG Oral Tablet (Deltasone) Take 40 mg by mouth for 3-5 days as directed by physician as needed for joint pain. Repeat as needed. 30 Tablet 5 No current facility-administered medications for this visit. Physical Exam: Temp 36.5 C (97.7 F) (Infrared ) | Wt 97.1 kg (214 lb) | BMI 38.52 kg/m | BSA 2.07 m General: alert, no distress, and well nourished Neck: supple, no adenopathy, thyroid normal size, non-tender, without nodularity Lymph: no palpable lymphadenopathy Heart: regular rate & rhythm and no gallops Lungs: clear to auscultation , no rales, wheezes or rhonchi Abdomen: abdomen soft, non-tender, and normal bowel sounds Musculoskeletal Exam: Heberden and Raquel's nodes noted to the hands No synovitis or dactylitis noted Squaring of both thumb bases noted No gouty tophi noted to the feet Assessment: (M10.9) Gouty arthritis (primary encounter diagnosis) (M15.9) Generalized osteoarthritis She did not tolerate allopurinol and does not wish to take Uloric. For now will treat flares with as needed prednisone. Will fill out handicap parking form for her arthritis. Plan: 1. Handicap parking form filled out 2. Will treat gout flares with prednisone as needed 3. Rtc in 1 yr Akshat Portillo MD Department of Rheumatology documented in this encounter Nursing Notes * Pauly Teran LPN - 07/01/2023 1:55 PM EST Chief Complaint Patient presents with Rheum Follow Up Follow up - gout documented in this encounter Plan of Treatment Upcoming Encounters Date Type Department Care Team (Late st Contact Info) Description 10/05/2023 12:20 PM EDT Office Visit Family Practice [facility] [address] [place] [address] Alejandro Simmons DO [address] [place] [address] 07/06/2024 1:00 PM EST Office Visit Rheumatology [place] [phone] [employer] [place] [address] Akshat Portillo MD [facility] [employer] [place] [address] Scheduled Procedures Name Priority Associated Diagnoses Date/Ti me COLONOSCOPY FLEXIBLE PROXIMAL DIAGNOSTIC Recall History of colon polyps Health Maintenance Due Date Last Done Comments Diabetic Foot Exam 1958 Hepatitis B (1 of 3 - Risk 3-dose series) 2002 *BISPHONATE OR OTHER ACCEPTABLE MEDICATION NEEDED FOR OSTEOPOROSIS (REFER TO SMARTSET #1146) 08/30/2021 COLONOSCOPY-EVERY 5 YRS AGES 18-100 11/24/2022 11/24/2017, 11/24/2017, 11/16/2014, Additional history exists Influenza Vaccine (FLU shot) (#1) 2023 Depression Screening 03/25/2023 03/25/2022 HbA1c 04/18/2023 10/16/2022, 03/08, 02/21/2021, Additional history exists GFR 10/17/2023 10/16/2022, 03/08, 02/21/2021, Additional history exists Albumin/Creatinine Ratio 10/25/2023 023, 03/25/2022, 02/27/2021, Additional history exists Diabetic Eye Exam 11/05/2023 11/04/2022, , 12/24/2021, Additional history exists DTaP,Tdap,and Td Vaccines (2 - Td or Tdap) 06/18/2025 06/18/2015, 06/18/2010, 01/27/1996 DXA Scan Discontinued 09/14/2017, 12/2014, 05/10/2012, Additional history exists Pneumococcal Vaccine: 65+ Years Completed 07/16/2018, 06/26/2016 VITAMIN D LEVEL ONCE IN A LIFETIME-USE SMARTSET# [id number] Completed 08/04/2022, 11/04/2014, 06/25/2011, Additional history exists [...] as of this encounter Visit Diagnoses Diagnosis Gouty arthritis- Primary Gouty arthropathy, unspecified Generalized osteoarthritis Generalized osteoarthrosis, unspecified site documented in this encounter Care Teams Child Study Team Director Relationship Specialty Start Date End Date Alejandro Simmons DO [address] [place] [address] PCP - General Family Medicine 07/07/19 documented as of this encounter"
--- OUTSIDE RECORDS SUMMARY | 2023-12-26 11:45 | External Medical Summary ---
Author Name Unknown Address Unknown Organization K0G[facility] [address] [place] [address] Laboratory Report Ordering Provider Test Date Status JOHN MURILLO 10/01/2023 10:17:23 Final Observation Date Value Abnormality Reference (Units ) Status WBC, Total 10/01/2023 10:17:23 8.77 4.00-10.8 0 (K/uL) Final RBC 10/01/2023 10:17:23 4.55 3.85-5.15 (M/uL) Final Hemoglobin 10/01/2023 10:17:23 13.2 12.0-15.3 (g/dL) Final HCT 10/01/2023 10:17:23 41.1 36.0-45.2 (%) Final MCV 10/01/2023 10:17:23 90.3 81.5-97.5 (fL) Final MCH 10/01/2023 10:17:23 29.0 27.0-34.0 (pg) Final MCHC 10/01/2023 10:17:23 32.1 32.0-36.0 (g/dL) Final RDW 10/01/2023 10:17:23 13.0 11.5-15.5 (%) Final Platelets 10/01/2023 10:17:23 375 140-400 (K /uL) Final MPV 10/01/2023 10:17:23 9.1 6.6-11.1 ( fL) Final Performing Location [facility] [address] [place] [address]
--- OUTSIDE RECORDS SUMMARY | 2023-12-26 11:45 | External Medical Summary | Summary of Care ---
Author Name Unknown Organization [facility] Address [address] [place] [address] Phone [phone] Care Team Providers Care Corporate Concierge Name Role Phone Alejandro Simmons DO Primary Care Provider Reason for Visit * Reason Comments NEW PATIENT Bilateral feet * Evaluate & Treat - Unlimited Visits (Within 10 days (routine)) - Authorized Specialty Diagnoses / Procedures Referred By Syed benítez Referred To Contact Podiatry Diagnoses Gouty arthritis Alejandro Simmons DO [address] [place] [address] Referral ID Status Reason Start Date Expiration Date Visits Requested Visits Authorized [id number] Authorized Specialty Services Required 10/05/[phone] Encounter Details Date Type Department Care Team (Latest Contact Info) Description 10/27/2023 2:00 PM EDT Office Visit Podiatry [facility] [address] [place] [address] Monica Santos DPM [address] [place] [address] Bilateral foot pain*; Primary osteoarthritis of both feet Allergies Active Allergy Reactions Criticality Noted Date Comments Adhesive Tape 12/21/2015 Blister Allopurinol Nausea/vomiting 10/24/2022 Amlodipine Flushing 08/25/2017 Aspirin Rash 02/28/2014 Povidone Iodine 12/21/2015 Colchicine 08/28/2021 Loose stools Egg-Derived Products Other (Please comment) 06/23/2011 No reaction; positive skin test in past/ Environmental 09/29/2000 Grass/molds Iodinated Contrast Media Anaphylaxis High 12/21/2015 Sulfa Antibiotics Rash 02/26/2000 documented as of this encounter (statuses as of 10/27/2023) Medications Medication Sig Dispensed Refills Start Date End Date Status CENTRUM SILVER PO TABS 1 TABLET DAILY Active ZADITOR 0.025 % OP SOLNIndications:All ergic rhinitis Instill into eye. 06/23/2011 Act rosamaria NASAL SALINE 0.65 % [...] 04/20/2023 Active predniSONE 20 MG Oral Tablet (Deltasone)Indicati [...] 10/05/2023 Atorvastatin Calcium 10 MG Oral Tablet (Lipitor)Indication s:Dyslipidemia, goal LDL below 100 TAKE 1 TABLET BY MOUTH EVERY MORNING 90 Tablet 1 10/26/2023 Active documented as of this encounter (statuses as of 10/27/2023) Active Problems Problem Noted Date Diagnosed Date PVC (premature ventricular contraction) 10/05/19 24 Diabetes mellitus without complication Osteoarthritis of ankles, bilateral 10/21/2022 Gouty arthritis 03/26/2021 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 Senile osteoporosis 03/25/2021 Vitamin D deficiency 08/31/2014 Diverticulosis of colon 08/27/2004 Dyslipidemia 06/24/2001 HTN, goal below 130/80 History of uterine cancer documented as of this encounter (statuses as of 10/27/2023) Resolved Problems Problem Noted Date Diagnosed Date [...] as of this encounter (statuses as of 10/27/2023) Immunizations Name Administration Dates Next Due COVID-19 [...] on file documented as of this encounter Progress Notes * Monica Santos, GISELE - 10/27/2023 2:00 PM EDT Podiatry New Patient Note [facility] Name: Chayo Dickson : 1940 Date: 10/27/2023 CHIEF COMPLAINT: Pt states she would like to talk about shoes HISTORY OF PRESENT ILLNESS: This patient is a 82 year old female who presents today with complaintsof having difficulty finding shoes. She states she likes sneakers. She does not like heavy or hard shoes. She looks for sneakers. She recently tried [employer] slip ons. She states these feel fine, butthe insert that it comes with does not feel right. She states she thinks she could get more support. She presents today in cro. She has never tried a spacer in her sneaker. Would like to become more active. Would also like to try an OTC insert. Past Medical History: Diagnosis Date Allergic rhinitis Benign neoplasm of colon 08/27/04 Benign neoplasm of colon 07/17/10 diverticulosis, polyps x2,--adenomatous tissue repeat in 4 year Diverticulosis of colon Dyslipidemia, goal LDL below 160 Full thickness macular hole 01/03/2016 Gout 04/08/2017 Gouty arthritis 03/26/2021 HTN, goal below 130/80 HTN, goal below 140/90 Macular hole 12/24/2015 PPV for FTMH OS, Dr. Judd Malignant neoplasm of corpus uteri (HCC) Menopause Osteoporosis, unspecified Other disorder of menstruation and other abnormal bleeding from female genital tract Senile osteoporosis 03/25/2021 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 Past Surgical History: Procedure Laterality Date BIOPSY OF UTERUS LINING BREAST BIOPSY-STEREOTACTIC 1959 left - benign COLONOSCOPY W/ LESION REMOVAL, SNARE 07/17/2010 diverticulosis, polyps x2,--adenomatous tissue repeat in 4 years COLONOSCOPY, DIAGNOSTIC (RECTUM) 11/16/2014 adenomatous polyps, diverticulosis, repeat 3 yrs/COLONOSCOPY FLEXIBLE PROXIMAL DIAGNOSTIC performedby Amy Rios MD at [facility] COLONOSCOPY, DIAGNOSTIC (RECTUM) 11/24/2017 serrated adenomatous polyp, diverticulosis, repeat 5 yrs/COLONOSCOPY FLEXIBLE PROXIMAL DIAGNOSTIC performed by Amy Rios MD at [facility] PARTIAL REMOVAL OF EYE FLUID Left 12/24/2015 PPV for FTMH OS, Dr. Judd REDUCTION OF BREAST 1997 b/l REMOVE CATARACT, INSERT LENS PROSTH Left 11/2015 Dr. Orourke REMOVE TONSILS & ADENOIDS, UNDER 12 Tonsillectomy/Adenoids,<14 Y/O TOTAL ABD HYSTERECTOMY W/WO REMOVAL OF TUBE(S) endometrial carcinoma Family History Problem Relation Name Age of Onset Diabetes Mother Heart Disorder Mother Hypertension Mother Musculo-skeletal Disorder Mother osteoporosis Allergies Mother chronic rhinitis Other (Other) Father gout Heart Disorder Father aortic stenosis Allergies Sister allergic rhinitis Allergies Brother rhinitis Other (CLL) Brother Glaucoma Aunt (Unspecified) X2 Eye Problems None Social History Socioeconomic History Marital status: Single Tobacco Use Smoking status: Former Current packs/day: 0.00 Average packs/day: 1 pack/day for 30.0 years (30.0 ttl pk-yrs) Types: Cigarettes Start date: 06/08/1962 Quit date: 06/08/1992 Years since quittin.4 Smokeless tobacco: Never Tobacco comments: no passive smoke Vaping Use Vaping status: Never Used Substance and Sexual Activity Alcohol use: Yes Comment: occasional Drug use: No Sexual activity: Never Social History Narrative [employer] INFORMATION ENVIRONMENTAL HISTORY: Type of Home: Two Story Type of Heating System: Gas and Forced air Air Conditioning: Yes Central Basement: Dampness, Dehumidifier and No evidence mold, mildew Home have cockroaches: No Irritants in the home: Scented air fresheners Patient's bedroom location: Floor: second Type of misty: Carpeting Beds: Number: 1 Type of beds: Mattress and Box spring Pillows: Number: 2 Type of pillows: Synthetic (hypoallergenic, polyester) Bedroom contains: Plants Pets: none Lives on a farm: No 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 Entered by: Sukhjinder Faulkner MD 03/11/2012 Social Determinants of Health Food Insecurity: Unknown (09/21/2023) Hunger Vital Sign Worried About Running Out of Food in the Last Year: Never true Current Outpatient Medications Medication Sig Dispense Refill [...] NOSTRIL TWO TIMES DAILY 90 mL 3 predniSONE 20 MG Oral Tablet (Deltasone) Take 40 mg by mouth for 3-5 days as directed by physician as needed for joint pain. Repeat as needed. (Patient not taking: Reported on 10/05/2023) 30 Tablet 5 Benzonatate 100 MG Oral Capsule Take 1 Capsule by mouth 3 times a day as needed for Cough. (Patientnot taking: Reported on 10/05/2023) 30 Capsule 1 Atorvastatin Calcium 10 MG Oral Tablet (Lipitor) TAKE 1 TABLET BY MOUTH EVERY MORNING 90 Tablet 1 No current facility-administered medications for this visit. ALLERGIES: Review of patient's allergies indicates: Allergen Reactions Iodinated Contrast Media Anaphylaxis Adhesive Tape Blister Allopurinol Nausea/vomiting Amlodipine Flushing Aspirin Rash Betadine [Povidone Iodine] Colchicine Loose stools Egg-Derived Products Other (Please comment) No reaction; positive skin test in past/ Environmental Grass/molds Sulfa Antibiotics Rash REVIEW OF SYSTEMS: CONSTITUTIONAL: No change in weight, No weakness, No fatigue, and No fevers, sweats, or chills EYE: No recent significant change in vision and No eye pain, redness, discharge EARS: No ear pain and No recent change in hearing NOSE: No history of frequent colds or sinusitis and No nasal stuffiness PULMONARY: No cough, sputum, or hemoptysis and No recent change in breathing CARDIOVASCULAR: No chest pain and No shortness of breath EXTREMITIES: Bilateral foot pain SKIN/INTEGUMENTARY: No edema, No rash, and No itching NEUROLOGIC: Normal balance, No headaches, No seizures, and No weakness PSYCHIATRIC: No depression, No anxiety, and No psychosis FOCUSED PODIATRIC EXAM: Vitals: There were no vitals filed for this visit. General: Patient is awake alert oriented to person place time. No apparent distress. Presents wearing crocs. Normal gait. DIAGNOSTIC STUDIES: 3 views of bilateral feet (08/04/2023) FINDINGS Right foot: Moderate hallux valgus deformity with osseous and soft tissue bunion. Severe 1st MTP osteoarthritis. Chronically marginated erosions about the 1st MTP joint. Chronic fracture deformity ofthe base of the 5th proximal phalanx. Erosive changes about the 4th D IP joint, extending into the 4th middle phalanx, new since the prior exam. Moderate arthrosis of the midfoot plantar calcaneal spur. Right ankle: Small well corticated ossific density adjacent to the medial malleolus, likely sequelaof remote trauma. The ankle mortise is intact. The tibiotalar joint space is preserved. Plantar calcaneal spur. Other findings, as above. Left foot: Moderate hallux valgus deformity with osseous and soft tissue bunion. Moderate 1st MTP osteoarthritis. Chronically marginated erosion at the 1st meta tarsal head. Moderate to severe midfoot arthrosis, most notable at the naviculocuneiform articulations. No new erosions identified. Plantar calcaneal spur. No fracture or dislocation Left ankle: Asymmetric moderate to severe medial tibiotalar joint space narrowing. Question chronically marginated erosion about the medial malleolus. Soft tissue swelling about the ankle. No fracture or dislocation. Plantar calcaneal spur. IMPRESSION IMPRESSION 1. Multifocal arthrosis of the right foot, as detailed above, with erosive changes about the right 4th D IP joint, extending into the 4th middle phalanx, new since the prior exam. Correlate clinically for gouty arthropathy. 2. Multifocal arthrosis of the left foot, most notable at the tibiotalar joint with chronically marginated erosion about the medial malleolus. No new or active erosions identified. ASSESSMENT: Bilateral foot pain OA, adiel PLAN: - Xrays personally reviewed and discussed with the pt. All questions answered. - Discussed OTC inserts and shoes to try. List given. - Also discussed custom inserts. Dasha Camarena information given. - Activity to tolerance - OTC pain medication PRN. - Pt to RTC PRN. Instructed to call with any problems or questions. Monica Santos DPM documented in this encounter Nursing Notes * Maritza Hand LPN - 10/27/2023 1:53 PM EDT Pt presents for new visit, referred by PCP for gouty arthritis, pt states this is taken care of, states she is asking for a consult for shoe recommendations and wonders if she should be wearing orthotics. Has not used orthotics ever. States has problem with L ankle, hx of fractures x 3; uses compression. Had a brace she was unable to use (too big and complex). Looking for a lightweight shoe, not a hard shoe; has tried many different shoes. documented in this encounter Plan of Treatment Upcoming Encounters Date Type Department Care Team (Late st Contact Info) Description 04/07/2024 2:00 PM EDT Office Visit [facility] [address] [place] [address] Lamar Jamil CRNP [address] [place] [address] 07/06/2024 1:00 PM EST Office Visit Rheumatology [address] [place] [address] Akshat Portillo MD [address] [place] [address] [place] [address] 10/06/2024 3:40 PM EDT Office Visit [facility] [address] [place] [address] Alejandro Simmons DO [address] [place] [address] Scheduled Procedures Name Priority Associated Diagnoses Date/Ti me COLONOSCOPY FLEXIBLE PROXIMAL DIAGNOSTIC Recall History of colon polyps Scheduled Referrals Name Type Priority Associated Diagnoses Orde r Schedule PODIATRY REFERRAL OP Referral Within 10 days (routine) Gouty arthritis Ordered: 10/05/2023 Health Maintenance [...] D LEVEL ONCE IN A LIFETIME-USE SMARTSET# [id number] Completed 10/01/2023, 08/04/2022, 11/04/2014, Additional history exists [...] as of this encounter Visit Diagnoses Diagnosis Bilateral foot pain- Primary Pain in limb Primary osteoarthritis of both feet documented in this encounter Care Teams Corporate Concierge Relationship Specialty Start Date End Date Alejandro Simmons DO [address] [place] [address] PCP - General Family Medicine 07/07/19 documented as of this encounter
--- OUTSIDE RECORDS SUMMARY | 2023-12-26 11:45 | External Medical Summary | Summary of Care ---
Author Name Unknown Organization [facility] Address [address] [place] [address] Phone [phone] Care Team Providers Care Ruffler Name Role Phone Alejandro Simmons DO Primary Care Provider Reason for Visit * Reason Onset Date Comments Med Request 07/06/2023 Time sensitive-I nfluenza A Virus Encounter Details Date Type Department Care Team (Late st Contact Info) Description 07/06/2023 Telephone [facility] [address] [facility] [address] Alejandro Simmons DO [address] [place] [address] Med Request (Time sensitive-Influenza A Vi... Allergies Active Allergy Reactions Criticality Noted Date [...] encounter Miscellaneous Notes * Telephone Encounter - Lily Mcknight CRNP - 07/06/2023 3:50 PM EST This was already addressed in a separate encounter. Patient presented to [facility] on 07/05 with 4 days of symptoms. It was explained to her at appt and in result note that she was well out of the window forTami-flu by the time she presented to [facility]. Ira-flu must be started within the first 48 hours. Patient should continue with supportive measures. OTC cold preps, tylenol as needed, stay well hydrated. May continue to take prescribed cough medication ordered at time of visit. Antibiotics are notindicated. * Telephone Encounter - Marcie Josue OSA - 07/06/2023 11:08 AM EST Patient calling requesting medication. Please see call details and advise: [phone] documented in this encounter Plan of Treatment Upcoming Encounters Date Type Department Care Team (Late st Contact Info) Description 10/14/2023 11:00 AM EDT Nutrition Services Nutrition, [facility] [address] [place] [address] Sariah Mackenzie RDN [address] [place] [address] 10/27/2023 2:00 PM EDT Office Visit Podiatry [facility] [address] [place] [address] Monica Santos DPM [address] [place] [address] 07/06/2024 1:00 PM EST Office Visit Rheumatology [address] [place] [address] Akshat Portillo MD [address] [place] [address] [place] [address] 10/06/2024 3:40 PM EDT Office Visit Family Practice [facility] [address] [place] [address] Alejandro Simmons DO [address] [place] [address] Scheduled Procedures Name Priority Associated Diagnoses Date/Ti [...] D LEVEL ONCE IN A LIFETIME-USE SMARTSET# [id number] Completed 10/01/2023, 08/04/2022, 11/04/2014, Additional history exists [...] Not on filedocumented as of this encounter Additional Health Concerns Infection Onset Date Last Indicated Resolved Time Influenza (seasonal) 07/05/2023 07/05/202307/26/2 024 12:21 AM EST documented as of this encounter Care Teams Ruffler Relationship Specialty Start Date End Date Alejandro Simmons DO [address] [place] [address] PCP - General Family Medicine 07/07/19 documented as of this encounter
--- OUTSIDE RECORDS SUMMARY | 2023-12-26 11:45 | External Medical Summary ---
Author Name Unknown Address Unknown Organization K01:[facility] - [address] [facility] [address] Laboratory Report Ordering Provider Test Date Status ROMY VIVAS 07/05/2023 12:46:24 Final Observation Date Value Abnormality Reference (Units ) Status Adenovirus DNA [Presence] in Nasopharynx by SHIRA with non-probe detection 07/05/2023 12:46:24 Negative Negative Final Human coronavirus 229E RNA [Presence] in Nasopharynx by SHIRA with non-probe detection 07/05/2023 12:46:24 Negative Negative Final Human coronavirus HKU1 RNA [Presence] in Nasopharynx by SHIRA with non-probe detection 07/05/2023 12:46:24 Negative Negative Final Human coronavirus NL63 RNA [Presence] in Nasopharynx by SIHRA with non-probe detection 07/05/2023 12:46:24 Negative Negative Final Human coronavirus OC43 RNA [Presence] in Nasopharynx by SHIRA with non-probe detection 07/05/2023 12:46:24 Negative Negative Final SARS-CoV-2 (COVID-19) RNA [Presence] in Nasopharynx by SHIRA with non-probe detection 07/05/2023 12:46:24 Negative Negative Final Human metapneumovirus RNA [Presence] in Nasopharynx by SHIRA with non-probe detection 07/05/2023 12:46:24 Negative Negative Final Rhinovirus+Enterovirus RNA [Presence] in Nasopharynx by SHIRA with non-probe detection 07/05/2023 12:46:24 Negative Negative Final Influenza virus A H3 RNA [Presence] in Nasopharynx by SHIRA with non-probe detection 07/05/2023 12:46:24 Positive Abnormal Negative Final Influenza A virus Subtype H3 detected by PCR (amplified probe). Test results reported to [facility]. Influenza virus B RNA [Prese nce] in Nasopharynx by SHIRA with non-probe detection 07/05/2023 12:46:24 Negative Negative Final Parainfluenza virus 1 RNA [P resence] in Nasopharynx by SHIRA with non-probe detection 07/05/2023 12:46:24 Negative Negative Final Parainfluenza virus 2 RNA [P resence] in Nasopharynx by SHIRA with non-probe detection 07/05/2023 12:46:24 Negative Negative Final Parainfluenza virus 3 RNA [P resence] in Nasopharynx by SHIRA with non-probe detection 07/05/2023 12:46:24 Negative Negative Final Parainfluenza virus 4 RNA [P resence] in Nasopharynx by SHIRA with non-probe detection 07/05/2023 12:46:24 Negative Negative Final Respiratory syncytial virus RNA [Presence] in Nasopharynx by SHIRA with non-probe detection 07/05/2023 12:46:24 Negative Negative F inal Bordetella pertussis.pertuss is toxin promoter region [Presence] in Nasopharynx by SHIRA with non-probe detection 07/05/2023 12:46:24 Negative Negative Final Chlamydophila pneumoniae DNA [Presence] in Nasopharynx by SHIRA with non-probe detection 07/05/2023 12:46:24 Negative Negative Final Mycoplasma pneumoniae DNA [P resence] in Nasopharynx by SHIRA with non-probe detection 07/05/2023 12:46:24 Negative Negative Final Bordetella parapertussis IS1 001 DNA [Presence] in Nasopharynx by SHIRA with non-probe detection 07/05/2023 12:46:24 Negative Negative F inal
The primers that detect Rhinovirus may cross react with some Enterorviruses. The validation of bronchial specimens, tracheal aspirates, and throats for this assay was developed and performance characteristics determined by [employer]. The validation of alternate specimen types has not been cleared or approved by the U.S. Food and Drug Administration (FDA). It has been determined that such clearance or approval is not necessary. Performing Location [facility] - [address] [facility] [place]. [facility] [address]
--- OUTSIDE RECORDS SUMMARY | 2023-12-26 11:45 | External Medical Summary | Summary of Care ---
Author Name Unknown Organization [facility] Address [address] [place] [address] Phone [phone] Care Team Providers Care Collection Systems Foreman Name Role Phone Alejandro Simmons DO Primary Care Provider Reason for Visit * Reason Comments Medical Nutrition Therapy * Evaluate & Treat - Unlimited Visits (Within 10 days (routine)) - Authorized Specialty Diagnoses / Procedures Referred By Syed benítez Referred To Contact Dietitian / Nutrition Services Diagnoses Gouty arthritis Alejandro Simmons DO [address] [place] [address] Referral ID Status Reason Start Date Expiration Date Visits Requested Visits Authorized [id number] Authorized Specialty Services Required 10/05/[phone] Encounter Details Date Type Department Care Team (Latest Contact Info) Description 10/14/2023 11:00 AM EDT Nutrition Services Aleisha Hester Cruz [address] [place] [address] Sariah Mackenzie RDN [address] [place] [address] Gouty arthritis*; Prediabetes; Dietary counseling and surveillance Allergies Active Allergy Reactions Criticality Noted Date Comments Adhesive Tape 12/21/2015 Blister Allopurinol Nausea/vomiting 10/24/2022 Amlodipine Flushing 08/25/2017 Aspirin Rash 02/28/2014 Povidone Iodine 12/21/2015 Colchicine 08/28/2021 Loose stools Egg-Derived Products Other (Please comment) 06/23/2011 No reaction; positive skin test in past/ Environmental 09/29/2000 Grass/molds Iodinated Contrast Media Anaphylaxis High 12/21/2015 Sulfa Antibiotics Rash 02/26/2000 documented as of this encounter (statuses as of 10/14/2023) Medications Medication Sig Dispensed Refills Start Date [...] as of this encounter (statuses as of 10/14/2023) Active Problems Problem Noted Date Diagnosed Date PVC (premature ventricular contraction) 10/05/19 24 Diabetes mellitus without complication Osteoarthritis of ankles, bilateral 10/21/2022 Gouty arthritis 03/26/2021 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 Senile osteoporosis 03/25/2021 Vitamin D deficiency 08/31/2014 Diverticulosis of colon 08/27/2004 Dyslipidemia 06/24/2001 HTN, goal below 130/80 History of uterine cancer documented as of this encounter (statuses as of 10/14/2023) Resolved Problems Problem Noted Date Diagnosed Date [...] as of this encounter (statuses as of 10/14/2023) Immunizations Name Administration Dates Next Due COVID-19 [...] Pressure - - Pulse - - Temperature - - Respiratory Rate - - Oxygen Saturation - - Inhaled Oxygen Concentration - - Weight 97.9 kg (215 lb 12.8 oz) 024 11:05 AM EDT Height 158.8 cm (5' 2.5") 10/14/2023 11 :05 AM EDT Body Mass Index 38.84 10/14/2023 11:05 AM EDT documented in this encounter Patient Instructions * Patient Instructions* Sariah Mackenzie RDN - 10/14/2023 11:47 AM EDT Patient will limit intake of seafood, red meat, and [place] to no more than 2 servings a week of each. Patient will increase activity by doing cubi bike workout at least 2 times a week, 5 minutes per session. Also occasionally do a short workout of free weights or band exercises. Patient will increase fluid intake to at least 40 ounces daily most days of the week. Try tracking this to see exactly how much you are drinking. documented in this encounter Progress Notes * Sariah Mackenzie RDN - 10/14/2023 11:06 AM EDT NUTRITION CONSULT - OUTPATIENT [facility] Name: Chayo Dickson Location: [facility] Date: 10/14/2023 Time: 11:06 AM Patient was identified by name and date. Patient was seen [id number] in the clinic. Reason for Referral: gouty arthritis NUTRITION ASSESSMENT: Client History Patient is an 82 year old female being seen for above issue. States she lives alone. Support System: sister and [id number] Barriers To Learning: None Special Education Needs: None Food/Nutrition-Related History Describes typical diet history/24 hr recall Breakfast: 9:30-10 AM banana sprinkled with cinnamon, 1/2 cup orange and apple, sometimes blueberries, multi-grain Cook Islander muffin with almond butter and local honey, sometimes a little orange marmalade, snack cheese, coffee with 1 packet Stevia in the raw-6 ounces espresso Snacks: none Lunch: 1-1:30 PM yogurt and peanuts or bone broth or BLT multi-grain wrap with small amount of Miracle Whip or rotisserie chicken in a sandwich with Miracle Whip, meek lettuce, raw carrots and radishes and Sun Chips Snacks: none Dinner: 6:30 PM ground or rotisserie chicken or chicken tenderloin sauteed with orange juice or cooking wine, potatoes or pasta or sweet potatoes, peas & carrots or baby patel beans or zucchini oryellow or butternut squash-sometimes as a pasta with vegetables and olive oil, sometimes cinnamon applesauce or watermelon or frozen peaches or cherries or blueberries, occasional ice cream bar or frozen root beer float dessert, carbonated water Snacks: 8-9 PM pretzels or 6-8 dark cherries with no sugar or Fairlife skim milk or shyla covered pretzels or 2-3 joce snaps Drinks: carbonated water with lemon or splash of diet joce rosalind-1 liter or more, coffee, Gatorade zero Restaurant meals: once very 4-6 weeks-Turkish, ie, orange chicken or cheese pizza ([employer]) sometimes with chicken or shrimp Alcohol: Infrequent Tobacco Use: No Diet Recall/Food Logs Indicate: AREAS FOR IMPROVEMENT: High calorie, high fat and/or high sugar selections Inadequate fiber intake Inadequate fluid intake POSITIVE: Portion control Uses calorie free beverages Good meal distribution Food and Nutrient Intake and other pertinent information: Patient reports being confused about whatfoods she should avoid to decrease uric acid level. She has reviews some reputable websites such [facility] and [facility]. She avoids processed foods, red meats, and fast food. She cannot toleratemany foods containing eggs; she occasionally will eat small amounts. Food allergies and/or food intolerances: eggs-mild allergy per pt report Pertinent Medications (Current): Current Outpatient Medications Medication Sig Dispense Refill [...] taking: Reported on 10/05/2023) 30 Capsule 1 No current facility-administered medications for this visit. Supplements: MVI and Vitamin D3 Prior Nutrition Counseling: No prior counseling Physical Activity: Limited due to issue with left ankle. Uses Cubi bike at times, sometimes free weights. Anthropometric Measurements Ht 1.588 m (5' 2.5") | Wt 97.9 kg (215 lb 12.8 oz) | BMI 38.84 kg/m | BSA 2.08 m Wt Readings from Last 5 Encounters: 10/14/23 97.9 kg (215 lb 12.8 oz) 10/05/23 98.1 kg (216 lb 4 oz) 07/05/23 97.3 kg (214 lb 6.4 oz) 07/01/23 97.1 kg (214 lb) 08/26/23 96.3 kg (212 lb 5 oz) Weight Change: stable BMI: BMI Readings from Last 1 Encounters: 10/14/23 38.84 kg/m Nutrition-Focused Physical Findings Overall appearance: overweight/obese Biochemical Data, Medical Tests, and Procedures Latest Reference Range & Units 10/01/23 10:17 Estimated Average Glucose <126 mg/dL 126 (H) Uric Acid 2.4 - 5.7 mg/dL 9.7 (H) Hemoglobin A1C 4.0 - 5.6 % 6.0 (H) (H): Data is abnormally high Rpt: View report in Results Review for more information Above levels reviewed and pt aware. NUTRITION DIAGNOSIS Altered nutrition-related laboratory values related to gout and prediabetes as evidenced by elevated uric acid and elevated glucose and Hgb A1c level. Food and nutrition-related knowledge deficit related to questions about what to eat and uric acid content of foods as evidenced by pt encounter NUTRITION INTERVENTION: NUTRITION EDUCATION Initial/brief nutrition education NUTRITION COUNSELING Strategies Other Education Material: Academy of [employer]etics Nutrition Care Manual Handout -Low Purine Nutrition Therapy Nutrition Prescription: Diet: Consistent Carbohydrate Low Uric Acid Daily Calorie Needs: 9142-1752 Kcals Daily Protein Needs: 70 Grams protein Goals: Patient will limit intake of seafood, red meat, and [place] to no more than 2 servings a week of each. Patient will increase activity by doing cubi bike workout at least 2 times a week, 5 minutes per session. Also occasionally do a short workout of free weights or band exercises. Patient will increase fluid intake to at least 40 ounces daily most days of the week. Try tracking this to see exactly how much you are drinking. Dietitian Action: Encouraged patient to avoid high-uric acid foods-briefly reviewed these with her,referring to above handout. Encouraged her to decrease frequency of high and moderately-high uric acid foods, ie, seafood, or[place], oatmeal, asparagus, cauliflower, spinach, mushrooms, peas, wheat bran, wheat germ. Encouraged her to limit these to twice a week. Recommended she increase her fluid intake and to track this as she cannot tell me exactly what volume of fluid she drinks daily. Briefly discussed monitoring portion sizes of high-CHO foods and eating consistent amounts throughout the day to decrease glucose and Hgb A1c levels. Encouraged her to try to remain active, doing short sessionsof activity as tolerated. Reviewed benefit of activity and exercise on glucose levels. Recommendations to Ordering Provider: Continue current plan of nutrition care. NUTRITION MONITORING AND EVALUATION: The following will be monitored and evaluated at the next visit: None Plan:Patient declined F/U visit; Encouraged pt to contact me via My G if any questions or concerns arise. 45 minutes Medical Nutrition Therapy 15 min (8-22 min) 30 min (23-37 min) 45 min (38-52 min) 60 min (53-67 min) 75 min (68-82 min) 90 min (83-97 min) 105 min (98-113 min) Time In: 1105 (10/14/23 1404) Time Out: 1150 (10/14/23 1404) Sariah Mackenzie RDN NUTRITION [facility] documented in this encounter Plan of Treatment Upcoming Encounters Date Type Department Care Team (Late st Contact Info) Description 10/27/2023 2:00 PM EDT Office Visit Podiatry [facility] [address] [place] [address] Monica Santos DPM [address] [place] [address] 04/07/2024 2:00 PM EDT Office Visit [facility] [address] [place] [address] Lamar Jamil CRNP [address] [place] [address] 07/06/2024 1:00 PM EST Office Visit Rheumatology [place] [address] [place] [address] Akshat Portillo MD [facility] [place] [address] 10/06/2024 3:40 PM EDT Office Visit [facility] [address] [place] [address] Alejandro Simmons, DO [address] [place] [address] Scheduled Procedures Name Priority Associated Diagnoses Date/Ti [...] D LEVEL ONCE IN A LIFETIME-USE SMARTSET# [id number] Completed 10/01/2023, 08/04/2022, 11/04/2014, Additional history exists [...] Diagnosis Gouty arthritis- Primary Gouty arthropathy, unspecified Prediabetes Other abnormal glucose Dietary counseling and surveillance Dietary surveillance and counseling documented in this encounter Care Teams Collection Systems Foreman Relationship Specialty Start Date End Date Alejandro Simmons DO [address] [place] [address] PCP - General Family Medicine 07/07/19 documented as of this encounter
--- OUTSIDE RECORDS SUMMARY | 2023-12-26 11:45 | External Medical Summary | Summary of Care ---
Author Name Unknown Organization [facility] Address [address] [place] [address] Phone [phone] Care Team Providers Care Right Of Way Agent Name Role Phone Alejandro Simmons Primary Care Provider Reason for Visit * Reason Comments Acute Pt here for complain ts of cough and congestion since . Encounter Details Date Type Department Care Team (Latest Contact Info) Description 07/05/2023 11:40 AM EST Convenient Care Visit [facility] [address] [place] [address] Lily Mcknight CRNP [address] [facility] [address] Viral URI with cough* Allergies Active Allergy Reactions Criticality Noted Date [...] as of this encounter (statuses as of 07/05/2023) Medications Medication Sig Dispensed Refills Start Date [...] as of this encounter (statuses as of 07/05/2023) Active Problems Problem Noted Date Diagnosed Date Diabetes mellitus without complication Osteoarthritis of ankles, bilateral 10/21/2022 Gouty arthritis 03/26/2021 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 Senile osteoporosis 03/25/2021 Vitamin D deficiency 08/31/2014 Diverticulosis of colon 08/27/2004 Dyslipidemia 06/24/2001 HTN, goal below 130/80 History of uterine cancer documented as of this encounter (statuses as of 07/05/2023) Resolved Problems Problem Noted Date Diagnosed Date [...] as of this encounter (statuses as of 07/05/2023) Immunizations Name Administration Dates Next Due COVID-19 [...] Sign Reading Time Taken Comments Blood Pressure 132/68 07/05/2023 12:21 PM EST Pulse 72 07/05/2023 12:21 PM EST Temperature 36.5 C (97.7 F) 07/05/2023 12:[address] Respiratory Rate 16 07/05/2023 12:21 PM EST Oxygen Saturation 94% 07/05/2023 12:21 PM EST Inhaled Oxygen Concentration - - Weight 97.3 kg (214 lb 6.4 oz) 07/05/2023 12:21 PM EST Height 158.8 cm (5' 2.5") 07/05/2023 12:21 PM ES T Body Mass Index 38.59 07/05/2023 12:21 PM EST documented in this encounter Progress Notes * Lily Mcknight CRNP - 07/05/2023 12:28 PM EST Subjective Chayo Dickson is a 82 year old female that presents for Acute (Pt here for complaints of cough and congestion since .) HPI: Patient presents with acute complaints of runny nose, nasal/sinus congestion, sore throat. Shealso endorses a moist productive cough with clear mucous. She has been experiencing night sweats, but takes Tylenol around the clock due to OA. She denies any documented fever. REVIEW OF SYSTEMS: See HPI for pertinent positives. All others negative other than those noted in the HPI. Objective BP 132/68 (BP Site: Left Arm, BP Position: Sitting, BP Cuff Size: Large) | Pulse 72 | Temp 36.5 C(97.7 F) (Tympanic) | Resp 16 | Ht 1.588 m (5' 2.5") | Wt 97.3 kg (214 lb 6.4 oz) | SpO2 94% | BMI 38.59 kg/m | BSA 2.07 m Body mass index is 38.59 kg/m. BP Readings from Last 3 Encounters: 07/05/23 132/68 01/31/23 138/74 10/15/22 142/82 Wt Readings from Last 3 Encounters: 07/05/23 97.3 kg (214 lb 6.4 oz) 07/01/23 97.1 kg (214 lb) 01/31/23 96.3 kg (212 lb 5 oz) Physical Exam Constitutional: Appearance: Normal appearance. HENT: Head: Normocephalic and atraumatic. Right Ear: Tympanic membrane, ear canal and external ear normal. Left Ear: Tympanic membrane, ear canal and external ear normal. Nose: Congestion and rhinorrhea present. Mouth/Throat: Mouth: Mucous membranes are moist. Pharynx: Oropharynx is clear. Eyes: Extraocular Movements: Extraocular movements intact. Pupils: Pupils are equal, round, and reactive to light. Cardiovascular: Rate and Rhythm: Normal rate and regular rhythm. Pulses: Normal pulses. Heart sounds: Normal heart sounds. Pulmonary: Effort: Pulmonary effort is normal. Breath sounds: Normal breath sounds. Musculoskeletal: General: Normal range of motion. Cervical back: Normal range of motion and neck supple. Skin: General: Skin is warm and dry. Neurological: General: No focal deficit present. Mental Status: She is alert and oriented to person, place, and time. Psychiatric: Mood and Affect: Mood normal. Behavior: Behavior normal. Thought Content: Thought content normal. Judgment: Judgment normal. None Assessment and plan 1. Viral URI with cough -may continue Tylenol or Ibuprofen for symptom management -Continue antihistamine. Given history of HTN, recommend use of Coricidin HBR for symptom relief. -Antibiotics are not indicated -Will notify with results of resp. Panel - RESPIRATORY PATHOGEN PANEL, PCR; Future - Benzonatate 100 MG Oral Capsule; Take 1 Capsule by mouth 3 times a day as needed for Cough. Dispense: 30 Capsule; Refill: 1 Follow up Follow Up: Return if symptoms worsen or fail to improve. Total time today including reviewing chart before the visit, pertinent labs, imaging reports, face to face time, and documentation time was 16 minutes. The above was discussed and understanding was expressed. YANELY Crooks documented in this encounter Nursing Notes * Danuta Miner LPN - 07/05/2023 12:18 PM EST Patient spelled last name and verbalized birthdate to verify identity. Chief Complaint Patient presents with Acute Pt here for complaints of cough and congestion since . Pt states that she did 2 home covid test and both came back negative documented in this encounter Plan of Treatment Upcoming Encounters Date Type Department Care Team (Late st Contact Info) Description 10/05/2023 12:20 PM EDT Office Visit Family Practice [facility] [address] [place] [address] Alejandro Simmons DO [address] [place] [address] 07/06/2024 1:00 PM EST Office Visit Rheumatology [place] [address] [place] [address] Akshat Portillo MD [facility] [place] [address] Pending Results Name Type Priority Associated Diagnoses Date /Time RESPIRATORY PATHOGEN PANEL, PCR Lab Routine Viral URI with cough 07/05/2023 12:46 PM EST Scheduled Orders Name Type Priority Associated Diagnoses Orde r Schedule RESPIRATORY PATHOGEN PANEL, PCR Lab Routine Viral URI with cough Expected: 07/05/2023, Expires: 07/05/2024 Scheduled Procedures Name Priority Associated Diagnoses Date/Ti [...] D LEVEL ONCE IN A LIFETIME-USE SMARTSET# [id number] Completed 08/04/2022, 11/04/2014, 06/25/2011, Additional history exists [...] as of this encounter Visit Diagnoses Diagnosis Viral URI with cough- Primary Acute upper respiratory infections of unspecified site documented in this encounter Care Teams Right Of Way Agent Relationship Specialty Start Date End Date Alejandro Simmons DO [address] [place] [address] PCP - General Family Medicine 07/07/19 documented as of this encounter
--- OUTSIDE RECORDS SUMMARY | 2023-12-26 11:45 | External Medical Summary ---
Author Name Unknown Address Unknown Organization [id number]:[facility] [place] [address] [place] [address] Laboratory Report Ordering Provider Test Date Status JOHN MURILLO 10/01/2023 10:17:23 Final Deficient: <20 ng/mL
Ins ufficient: 20-29 ng/mL
Recommended/Optimum:30-50 ng/mL

Vitamin D intoxication is rare. If suspicious of Vitamin D toxicity, evaluation of serum Calcium and PTH is recommended. Observation Date Value Abnormality Reference (Units ) Status 25-OH Vitamin D total 10/01/2023 10:17:23 35 >19 (ng/mL) Final Performing Location [facility] [place] [address] [place] [address]
--- OUTSIDE RECORDS SUMMARY | 2023-12-26 11:45 | External Medical Summary ---
Author Name Unknown Address Unknown Organization [id number]:[facility] [place] - [facility] [address] [facility] [address] Laboratory Report Ordering Provider Test Date Status JOHN MURILLO 10/01/2023 10:17:23 Final Observation Date Value Abnormality Reference (Units ) Status HbA1C 10/01/2023 10:17:23 6.0 Above high normal 4. 0-5.6 (%) Final The use of HbA1c to monitor glycemic status is based on normal hemoglobin and HbA composition. This test should not be used in patients with abnormal hemoglobin that affects the half life of the red blood cell or the in vivo glycation rates. Glucose, estimated average 10/01/2023 10:17:23 126 Above high normal <126 (mg/dL) Pro santos Performing Location [facility] [place] - [address] [facility] [address]
--- NOTE | 2023-12-26 11:54 | Emergency Department Note ---
Impression & Plan Acute CVA (cerebrovascular accident), Left hand weakness ED Provider Note Provider: Uday Carbajal MD DATE OF SERVICE: 12/26/2023 CHIEF COMPLAINT: Left hand clumsiness HISTORY OF PRESENT ILLNESS: Patient is a 83-year-old female history of hypertension and allergies presenting here today reporting that around 8 AM she got up and took Tylenol arthritis and was normal. Went back to bed and woke up at 930 when her cell phone alarm went off and was unable to grasp and hold her cell phone and left hand well. States her left hand feels off and is not working quite as well. Denies any headache or speech issues or leg issues. Denies any issue with the right hand. Denies that it really feels tingly or numb. Just feels a bit off. Denies any acute vision change. No history of similar. States he did not sleep on that side or on that arm. Has been persistent the last hour to have some concern for possible CVA/stroke. Evidently allergic to aspirin by her report PAST MEDICAL HISTORY: As noted above MEDICATIONS: Reviewed home medications SOCIAL HISTORY: Non-smoker PHYSICAL EXAM: GENERAL: alert and oriented in no acute distress on stretcher Head: normocephalic and atraumatic EYES: No injection, discharge or icterus. PERRL, EOMI. NECK: Trachea midline. Supple. ENT: Mucous membranes pink and moist. LUNGS: Airway patent. No retractions. Breath sounds clear HEART: Regular rate and rhythm. No chest wall tenderness ABDOMEN: Soft and non-tender, without guarding or rebound. SKIN: Acyanotic, warm, dry, without rashes EXTREMITIES: Without swelling, tenderness or deformity 2+ left radial pulse. NEUROLOGICAL: No aphasia. No facial droop or slurred speech. Normal strength and tone in the extremities. Sensation to gross touch normal. Ambulatory. No pronator drift. Little bit of subtle left eyahoo-ol-nhbu ataxia. No yzeo-hg-tyxl ataxia. EK beats per min. Normal sinus rhythm. No PVC or PAC. No acute ST segment elevation or depression with a left axis and a QTc of 399. CONTINUOUS CARDIAC MONITORING: was ordered and showed a heart rate of 60s-70s bpm in normal sinus rhythm Patient's laboratory studies and imaging reviewed. Differential includes Infection, dehydration, metabolic abnormality, hypo/hyperglycemia, electrolyte disturbance, anemia, hypoxia, cardiac sources, intracerebral event, toxicologic, neurologic, as well as other pathologies. IMPRESSION/MEDICAL DECISION MAKING: Little bit of subtle left finger-nose ataxia and some issues with hand question of subtle CVA. Last known well 8 AM and arrives at almost 12 outside the window for thrombolytics especially with such minimal symptoms. Discussed the patient and she is agree. Head CT obtained without significant findings. Significant allergy profile including contrast materials in the past as well as aspirin. Will obtain Noncon head CT to exclude hemorrhage or mass which I feel is less likely. Again shared decision making not a candidate for thrombolytics. Will plan to proceed with MRI to evaluate for possible subtle CVA causing the issues with her left hand. Basic blood work obtained. No significant electrolyte abnormality or signs of renal dysfunction. Normal blood counts. CT head per radiology without acute findings of mass or blood. MRI of the brain per radiology shows a very small punctate area of restricted diffusion consistent with a small area of infarct in the right lateral frontal lobe. This likely explains her hand issue. Given this positive finding discussed with the patient staying for further stroke workup and evaluation. Hospitalist was consulted. DIAGNOSIS: Left hand weakness, CVA DISPOSITION: Hospitalist will evaluate Patient was agreeable with this plan. Past Med/Surg History Problem List (Updated 12/26/23 @ 14:38 by Uday Carbajal M.D.) Left hand weakness (Acute) Acute CVA (cerebrovascular accident) (Acute) Gout (Chronic) Hypertension (Chronic) Rhinitis (Chronic) Social History Smoking Status: Former smoker Preferred Language: Cameroonian Feels Safe at Home: Yes Allergies Allergies Allergy/AdvReac Type Severity Reaction Status Date / Time Sulfa (Sulfonamide Allergy Severe WAS TOLD Verified 03/02/22 12:01 Antibiotics) R/T TO BSP?? AND ANAPHYLACTIC REACTION adhesive Allergy Unknown WELTS/RASH Verified 03/02/22 12:01 aspirin Allergy Unknown RASH Verified 03/02/22 12:01 grass pollen-perennial rye, Allergy Unknown . Verified 03/02/22 12:01 standar Iodinated Contrast Media Allergy Unknown ANAPHYLAXIS Verified 03/02/22 12:01 iodine Allergy Unknown TOPICAL - Verified 03/02/22 12:01 WELTS mold Allergy Unknown . Verified 03/02/22 12:01 pollen extracts Allergy Unknown . Verified 03/02/22 12:01 acetaminophen AdvReac Unknown GI UPSET Verified 03/02/22 12:01 Egg Derived AdvReac Unknown GI UPSET Verified 03/02/22 12:01 oxycodone AdvReac Unknown GI UPSET Verified 03/02/22 12:01 Home Meds Home Medications Medication Instructions Recorded Confirmed atorvastatin 10 mg tablet 10 mg PO QAM 03/02/22 03/02/22 azelastine 137 mcg (0.1 %) nasal 2 spray intranasal BID 03/02/22 03/02/22 spray cholecalciferol (vitamin D3) 25 25 mcg PO DAILY 03/02/22 03/02/22 mcg (1,000 unit) tablet (Vitamin D3) fluticasone propionate 50 2 spray intranasal BID PRN 03/02/22 03/02/22 mcg/actuation nasal Congestion spray,suspension lisinopril 20 1 tab PO BID 03/02/22 03/02/22 mg-hydrochlorothiazide 12.5 mg tablet multivitamin 1 tab PO DAILY 03/02/22 03/02/22 Results & Data (ED) Vital Signs Vital Signs - 24 hr 12/26/23 11:37 12/26/23 11:50 Pulse Rate 71 Respiratory Rate 20 Blood Pressure 183/85 H Blood Pressure Mean 117 Pulse Oximetry 95 Oxygen Delivery Method Room Air Room Air Sepsis Recent Fever Within 48 Hours No Sepsis New/Unexplained Change in Mental Status No Sepsis Action Taken by Nursing No Action Required Laboratory Data 12/26/23 11:56 12/26/23 11:56 Lab Results 12/26/23 Range/Units 11:56 WBC 8.17 (4.8-10.8) K/ul RBC 4.66 (4.20-5.40) M/uL Hgb 13.3 (12.0-16.0) g/dl Hct 41.3 (37.0-47.0) % MCV 88.6 (80.0-100.0) fL MCH 28.5 (25.0-34.0) pg MCHC 32.2 (32.0-36.0) g/dL RDW Std Deviation 41.7 (36.4-46.3) fL RDW Coeff of Chase 12.9 (11.5-14.5) % Plt Count 389 (130-400) K/uL MPV 9.0 L (9.4-12.4) fL Immature Gran % (Auto) 0.4 % Neut % (Auto) 65.3 % Lymph % (Auto) 23.0 % Smyth % (Auto) 8.0 % Eos % (Auto) 2.6 % Baso % (Auto) 0.7 % Neut # (Auto) 5.34 (1.40-6.50) K/uL Lymph # (Auto) 1.88 (1.20-3.40) K/uL Smyth # (Auto) 0.65 H (0.11-0.59) K/uL Eos # (Auto) 0.21 (0.00-0.50) K/uL Baso # (Auto) 0.06 (0.00-0.20) K/uL Immature Gran # (Auto) 0.03 (0.01-0.20) K/uL PT 10.3 (9.0-12.0) Seconds INR 0.9 (0.9-1.1) APTT 25 (21-31) Seconds PTT Ratio 0.9 Sodium 139 (136-145) mmol/L Potassium 4.0 (3.5-5.1) mmol/L Chloride 103 (98-107) mmol/L Carbon Dioxide 27 (21-32) mmol/L Anion Gap 9 (3-11) BUN 20 (6-23) mg/dl Creatinine 0.69 (0.6-1.2) mg/dl Est Cr Clr Drug Dosing 72.8 ml/min Est GFR ( Amer) 94.6 ml/min Est GFR (Non-Af Amer) 81.6 ml/min BUN/Creatinine Ratio 29.0 H (10-20) Glucose 131 H (70-99(Fasting)) mg/dl Calcium 9.5 (8.6-10.3) mg/dl Magnesium 1.7 (1.7-2.4) mg/dl Total Bilirubin 0.5 (0.2-1.0) mg/dl AST 18 (13-39) U/L ALT 22 (7-52) U/L Alkaline Phosphatase 62 (34-104) U/L Troponin I High Sens 4.2 (0-14) pg/ml Total Protein 7.2 (6.0-8.3) gm/dl Albumin 4.3 (3.4-5.0) gm/dl Globulin 2.9 (2.5-4.0) gm/dl Albumin/Globulin Ratio 1.5 (0.9-2) Imaging Data Radiologist's Impression: Brain MRI 12/26/23 11:52 MR brain wo con CLINICAL HISTORY: L hand weakness TECHNIQUE: Multiplanar and multisequence MR images of the brain were obtained without intravenous contrast. Comparison: Comparison is made to MRI brain 12/26/2023 FINDINGS: Punctate focus of restricted diffusion is seen in the right lateral frontal lobe (series 4 image 15 ). The white matter is unremarkable. The ventricular system is normal in appearance. No mass is seen. There is no mass effect or midline shift. There is no evidence of acute intraparenchymal hemorrhage. No extra axial fluid collections are seen. The corpus callosum, pituitary gland, and cerebellar tonsils appear grossly unremarkable. Flow voids of the major intracranial arterial vessels are identified. The imaged portions of the paranasal sinuses, mastoid air cells, and orbits are unremarkable. IMPRESSION: Punctate focus of restricted diffusion in the right lateral frontal lobe may represent a tiny infarct. No evidence of hemorrhagic transformation. ACT 112: Negative or not required by law. Electronically signed by: Nikunj Be M.D. 12/26/2023 2:[address] 12/26/23 11:52 CT head/brain wo con CLINICAL HISTORY: L hand weakness Technique: Contiguous axial CT images of the head were acquired from the base of the skull to the vertex without intravenous contrast administration. Images were viewed in brain, subdural and bone windows. Automated dose lowering techniques and/or adjustment according to patient size were utilized for this exam. Comparison: None available at the time of this dictation. Findings: The ventricles, basal cisterns, and cerebral sulci are normal. There is no acute intracranial hemorrhage or evidence of acute territorial infarction. Neither mass effect, shift of the midline structures, nor abnormal extra-axial fluid collections are shown. Imaged portions of the paranasal sinuses and mastoid air cells are clear. The orbits appear normal. There are no acute fractures of the calvaria or scalp swelling. Impression: No acute intracranial hemorrhage, no evidence of acute territorial infarction or other acute intracranial disease process. ACT 112: Negative or not required by law. Electronically signed by: Nikunj Be M.D. 12/26/2023 12:55 PM Discharge Plan Visit Data Chief Complaint: Stroke/CVA Symptoms Stated Complaint: L HAND WEAKNESS ED Provider: Uday Carbajal Discharge Problem: Acute CVA (cerebrovascular accident), Left hand weakness Patient Disposition: Being Evaluated by Hospitalist Forms Stand Alone Forms: My [facility] Prescriptions Prescriptions: No Action multivitamin Tablet 1 tab PO DAILY atorvastatin 10 mg tablet 10 mg PO QAM lisinopril-hydrochlorothiazide 20-12.5 mg tablet 1 tab PO BID azelastine 137 mcg (0.1 %) aerosol,spray 2 spray INTRANASAL BID fluticasone propionate 50 mcg/actuation spray,suspension 2 spray INTRANASAL BID PRN (Reason: Congestion) cholecalciferol (vitamin D3) [Vitamin D3] 25 mcg (1,000 unit) Tablet 25 mcg PO DAILY Referrals Referrals: Alejandro Simmons DO [Primary Care Provider] -
[2023-12-26 12:08] LABS: Basophils # (auto) 0.06 K/uL (0.00-0.20); Basophils % (auto) 0.7 %; Eosinophils # (auto) 0.21 K/uL (0.00-0.50); Eosinophils % (auto) 2.6 %; Hematocrit (blood only) 41.3 % (37.0-47.0); Hemoglobin 13.3 g/dl (12.0-16.0); Immature Granulocytes # (auto) 0.03 K/uL (0.01-0.20); Immature Granulocytes % (auto) 0.4 %; Lymphocytes # (auto) 1.88 K/uL (1.20-3.40); Mean Corpuscular Hemoglobin 28.5 pg (25.0-34.0); Mean Corpuscular Hgb Conc 32.2 g/dL (32.0-36.0); Mean Corpuscular Volume 88.6 fL (80.0-100.0); Monocytes # (auto) 0.65 K/uL (0.11-0.59); Neutrophils # (auto) 5.34 K/uL (1.40-6.50); Neutrophils % (auto) 65.3 %; Platelet Count 389 K/uL (130-400); RDW Coefficient of Variation 12.9 % (11.5-14.5); RDW Standard Deviation 41.7 fL (36.4-46.3); Red Blood Count 4.66 M/uL (4.20-5.40); White Blood Count 8.17 K/ul (4.8-10.8)
[2023-12-26 12:29] LABS: Albumin Globulin Ratio 1.5 (0.9-2); Albumin Level 4.3 gm/dl (3.4-5.0); Bilirubin,Total 0.5 mg/dl (0.2-1.0); Calcium 9.5 mg/dl (8.6-10.3); Creatinine Clr Calc Pharmacy 72.8 ml/min; Est GFR (African American) 94.6 ml/min; Est GFR (Non-African American) 81.6 ml/min; Globulin 2.9 gm/dl (2.5-4.0); Magnesium 1.7 mg/dl (1.7-2.4); Total Protein 7.2 gm/dl (6.0-8.3)
[2023-12-26 12:35] LABS: Troponin I High Sensitivity 4.2 pg/ml (0-14)
[2023-12-26 12:51] LABS: INR 0.9 (0.9-1.1); Partial Thromboplastin Ratio 0.9; Partial Thromboplastin Time 25 Seconds (21-31); Prothrombin Time 10.3 Seconds (9.0-12.0)
--- NOTE | 2023-12-26 12:56 | CT Scan Report ---
CT head/brain wo con CLINICAL HISTORY: L hand weakness Technique: Contiguous axial CT images of the head were acquired from the base of the skull to the nabil sumit without intravenous contrast administration. Images were viewed in brain, subdural and bone [facility]. Automated dose lowering techniques and/or adjustment according to patient size were utilized for this exam. Comparison: None available at the time of this dictation. Findings: The ventricles, basal cisterns, and cerebral sulci are normal. There is no acute intracranial hemorrh age or evidence of acute territorial infarction. Neither mass effect, shift of the midline structures , nor abnormal extra-axial fluid collections are shown. Imaged portions of the paranasal sinuses and mastoid air cells are clear. The orbits appear normal. There are no acute fractures of the calvaria or scalp swelling. Impression: No acute intracranial hemorrhage, no evidence of acute territorial infarction or other acute intracra nial disease process. ACT 112: Negative or not required by law. Electronically signed by: Nikunj Be M.D. 12/26/2023 12:55 PM
--- NOTE | 2023-12-26 14:14 | Magnetic Resonance Report ---
MR brain wo con CLINICAL HISTORY: L hand weakness TECHNIQUE: Multiplanar and multisequence MR images of the brain were obtained without intravenous con trast. Comparison: Comparison is made to MRI brain 12/26/2023 FINDINGS: Punctate focus of restricted diffusion is seen in the right lateral frontal lobe (series 4 image 15 ) . The white matter is unremarkable. The ventricular system is normal in appearance. No mass is seen. There is no mass effect or midline shift. There is no evidence of acute intraparenchymal hemorrhage. No extra axial fluid collections are seen. The corpus callosum, pituitary gland, and cerebellar tonsi ls appear grossly unremarkable. Flow voids of the major intracranial arterial vessels are identified. The imaged portions of the para nasal sinuses, mastoid air cells, and orbits are unremarkable. IMPRESSION: Punctate focus of restricted diffusion in the right lateral frontal lobe may represent a tiny infarct . No evidence of hemorrhagic transformation. ACT 112: Negative or not required by law. Electronically signed by: Nikunj Be M.D. 12/26/2023 2:11 PM
--- NOTE | 2023-12-26 14:46 | History & Physical Report ---
<Statement entered by Kiko Noland, DO - 12/26/23 17:24> I have seen and examined the patient and have discussed the case with the provider above. I have reviewed the advanced practitioner's documentation, and I agree with, and take responsibility for that plan of care. Patient seen and examined while in the ED. Patient states she occasionally has some skipped heartbeats that she can feel but denies any palpitations or prolonged fluttering. Plan of care as outlined below Date of Service December 26, 2023 Assessment & Plan (1) Left hand weakness: (2) Acute CVA (cerebrovascular accident): Plan: This is an 83-year-old female with PMH of hypertension, diet controlled DM II, dyslipidemia, history of uterine cancer and other medical problems listed below who presents to the hospital's morning with left hand weakness since this morning and was found to have a small R lateral frontal lobe infarct. Last known well 0800 today, woke at 0930 with L hand weakness that has since improved but not fully resolved Head CT with no acute intracranial hemorrhage, no evidence of acute territorial infarction or other acute intracranial disease process Brain MRI wo con with punctate focus of restricted diffusion in the right lateral frontal lobe may represent a tiny infarct. No evidence of hemorrhagic transformation CTA head/neck not obtained in ED due iodinated contrast dye allergy (anaphylaxis) Discussed with [facility] neuro Dr. Guerrero - recommended obtaining MRA head/neck, loading with plavix 300mg, 75mg daily (patient with aspirin allergy) and increasing atorvastatin to 40mg (eventual goal of 80mg) PT/OT/speech, neuro checks, echo with bubble study per stroke set protocol (3) DM (diabetes mellitus), type 2: Plan: Diet controlled, per patient Most recent a1c 6 in September 2023, will repeat in AM Carb consistent diet Repeat glucose with AM BMP, add SSI if indicated (4) Hypertension: Plan: BP 158/76 Holding lisinopril-hctz to allow for permissive HTN (goal BP < 220/120) for first 24-48 hours to allow for cerebral perfusion (5) Gouty arthritis: Plan: Continue scheduled Tylenol (6) Dyslipidemia: Plan: Increasing statin as above DVT Ppx: SQ heparin Code status: FULL PCP: [place] Dispo: admitted to PCU Patient seen in collaboration with Dr. Noland. Please see addendum. I spent a total of 75 minutes coordinating, documenting, and providing care for this patient excluding time spent in the performance of separately billed services. History of Present Illness Chief Complaint: Hand weakness, headache Primary Care Provider: Alejandro Simmons DO This is an 83-year-old female with PMH of hypertension, diet controlled DM II, dyslipidemia, history of uterine cancer and other medical problems listed below who presents to the hospital's morning with left hand weakness since this morning. Patient was last known well at 0800 when she woke to take her scheduled Tylenol for history of gouty arthritis and then went back to bed. When she woke up at 9:30 AM, went to machine pecan picker her phone with her left hand and dropped it immediately, noting weakness out of the ordinary in that extremity. Denies any weakness on the right side, no ambulatory dysfunction, no dysarthria or difficulty swallowing. Called family and was brought to ED for further evaluation at by then was outside tpa window. Denies any known personal stroke history. Since arrival, left upper extremity feels stronger but still notably "clumsy" with left hand. Denies any numbness or paresthesias of LUE, just weakness. No headache, lightheadedness, visual changes, chest pain, shortness of breath, nausea, vomiting, abdominal pain, dysuria, diarrhea or constipation. Allergies Allergy/AdvReac Type Severity Reaction Status Date / Time adhesive Allergy Severe REDNESS, Verified 12/26/23 15:22 BLISTERS, SKIN TEARS OFF Iodinated Contrast Media Allergy Severe ANAPHYLAXIS Verified 12/26/23 14:49 aspirin Allergy Intermediate RASH Verified 12/26/23 14:49 grass pollen-perennial rye, Allergy Intermediate SNEEZING, Verified 12/26/23 14:49 standar CONGESTION iodine Allergy Intermediate TOPICAL Verified 12/26/23 14:49 (BETADINE)- WELTS mold Allergy Intermediate SNEEZING, Verified 12/26/23 14:49 CONGESTION pollen extracts Allergy Intermediate SNEEZING, Verified 12/26/23 14:49 CONGESTION Sulfa (Sulfonamide Allergy Intermediate RASH PER Verified 12/26/23 14:49 Antibiotics) [facility] Egg Derived Allergy Unknown POSITIVE Verified 12/26/23 14:49 ALLERGY TEST allopurinol AdvReac Intermediate NAUSEA/VOMI Verified 12/26/23 14:49 TING colchicine AdvReac Intermediate Diarrhea Verified 12/26/23 14:49 oxycodone AdvReac Intermediate GI UPSET Verified 12/26/23 15:23 amlodipine AdvReac Mild Flushing Verified 12/26/23 14:49 Home Medications Medication Instructions Recorded Confirmed Type atorvastatin 10 mg tablet 10 mg PO QAM 03/02/22 12/26/23 History azelastine 137 mcg (0.1 %) nasal 2 spray intranasal BID 03/02/22 12/26/23 History spray cholecalciferol (vitamin D3) 25 25 mcg PO DAILY 03/02/22 12/26/23 History mcg (1,000 unit) tablet (Vitamin D3) fluticasone propionate 50 2 spray intranasal BID Congestion 03/02/22 12/26/23 History mcg/actuation nasal spray,suspension lisinopril 20 1 tab PO BID 03/02/22 12/26/23 History mg-hydrochlorothiazide 12.5 mg tablet acetaminophen 650 mg 1,300 mg PO Q8H 12/26/23 12/26/23 History tablet,extended release (Tylenol 8 Hour) fexofenadine 180 mg tablet 180 mg PO HS 12/26/23 12/26/23 History ketotifen fumarate 0.025 % (0.035 1 drp ophthalmic (eye) BID PRN 12/26/23 12/26/23 History %) eye drops (Zaditor) ITCHY EYES [id number] tablet 1 tab PO DAILY 12/26/23 12/26/23 History propylene glycol 0.6 % eye drops 1 drp ophthalmic (eye) BID 12/26/23 12/26/23 History sodium chloride 0.65 % nasal spray 1 spray intranasal BID 12/26/23 12/26/23 History aerosol ([place] Saline) Past Med/Surg History Problem List (Updated 12/26/23 @ 16:23 by Jessica Tracey PA-C) Left hand weakness (Acute) Acute CVA (cerebrovascular accident) (Acute) Medical History (Updated 12/26/23 @ 16:23 by Jessica Tracey PA-C) Gouty arthritis Dyslipidemia DM (diabetes mellitus), type 2 Rhinitis Hypertension Gout Surgical History (Updated 12/26/23 @ 16:23 by Jessica Tracey PA-C) H/O cataract removal with insertion of prosthetic lens H/O total hysterectomy History of tonsillectomy Family History (Updated 12/26/23 @ 16:23 by Jessica Tracey PA-C) Other Diabetes Stroke Social History (Updated 12/26/23 @ 16:21 by Jessica Tracey PA-C) Smoking Status: Former smoker Hx Alcohol Use: No Hx Substance Use: No Preferred Language: Macedonian Feels Safe at Home: Yes Review of Systems Review of Systems: At least ten systems reviewed and negative except as noted in the HPI. Physical Exam Physical Exam: General Appearance: WD/WN, vitals as above, NAD, sitting up in bed, pleasant, conversing easily Head: normocephalic, atraumatic Eyes: normal inspection, PERRL, conjunctivae normal, anicteric sclerae ENT: external ear and nose normal, oropharynx normal Neck: normal visual inspection, trachea midline, no thyromegaly Respiratory: normal respiratory effort, lungs clear to auscultation, no wheeze, rales, rhonchi. No accessory muscle use Cardiovascular: regular rate, rhythm, no murmur, normal peripheral pulses, no BLE edema. Vessels: no JVD Chest: normal inspection of chest Abdomen/GI: normal bowel sounds, soft, nontender, no hepatosplenomegaly Extremities/Musculoskeletal: no cyanosis or clubbing, extremities motor strength 5/5 Neurologic: PERRL, EOMI, accommodation nl, no face palsy, no dysarthria, CN's II-XI intact bilaterally, LUE 4/5 bioengineer strength, some dysmetria noted on [id number]. LLE, RUE and RLE 5/5 LILLIAN Psychiatric: A+Ox3, +anxious Skin: no rashes, normal color, warm/dry Results & Data Results & Data Vital Signs (Past 12 Hours) Vital Signs Pulse Resp BP Pulse Ox O2 Del Method 12/26/23 11:50 Room Air 12/26/23 11:37 71 20 183/85 H 95 Room Air Laboratory Results Short CBC 12/26/23 Range/Units 11:56 WBC 8.17 (4.8-10.8) K/ul Hgb 13.3 (12.0-16.0) g/dl Hct 41.3 (37.0-47.0) % Plt Count 389 (130-400) K/uL BMP 12/26/23 11:56 Sodium 139 Potassium 4.0 Chloride 103 Carbon Dioxide 27 BUN 20 Creatinine 0.69 Glucose 131 H Calcium 9.5 Liver Function 12/26/23 Range/Units 11:56 Total Bilirubin 0.5 (0.2-1.0) mg/dl AST 18 (13-39) U/L ALT 22 (7-52) U/L Alkaline Phosphatase 62 (34-104) U/L Albumin 4.3 (3.4-5.0) gm/dl Diagnostic Findings Brain MRI 12/26/23 11:52 MR brain wo con CLINICAL HISTORY: L hand weakness TECHNIQUE: Multiplanar and multisequence MR images of the brain were obtained without intravenous contrast. Comparison: Comparison is made to MRI brain 12/26/2023 FINDINGS: Punctate focus of restricted diffusion is seen in the right lateral frontal lobe (series 4 image 15 ). The white matter is unremarkable. The ventricular system is normal in appearance. No mass is seen. There is no mass effect or midline shift. There is no evidence of acute intraparenchymal hemorrhage. No extra axial fluid collections are seen. The corpus callosum, pituitary gland, and cerebellar tonsils appear grossly unremarkable. Flow voids of the major intracranial arterial vessels are identified. The imaged portions of the paranasal sinuses, mastoid air cells, and orbits are unremarkable. IMPRESSION: Punctate focus of restricted diffusion in the right lateral frontal lobe may represent a tiny infarct. No evidence of hemorrhagic transformation. ACT 112: Negative or not required by law. Electronically signed by: Nikunj Be M.D. 12/26/2023 2:[address] 12/26/23 11:52 CT head/brain wo con CLINICAL HISTORY: L hand weakness Technique: Contiguous axial CT images of the head were acquired from the base of the skull to the vertex without intravenous contrast administration. Images were viewed in brain, subdural and bone windows. Automated dose lowering techniques and/or adjustment according to patient size were utilized for this exam. Comparison: None available at the time of this dictation. Findings: The ventricles, basal cisterns, and cerebral sulci are normal. There is no acute intracranial hemorrhage or evidence of acute territorial infarction. Neither mass effect, shift of the midline structures, nor abnormal extra-axial fluid collections are shown. Imaged portions of the paranasal sinuses and mastoid air cells are clear. The orbits appear normal. There are no acute fractures of the calvaria or scalp swelling. Impression: No acute intracranial hemorrhage, no evidence of acute territorial infarction or other acute intracranial disease process. ACT 112: Negative or not required by law. Electronically signed by: Nikunj Be M.D. 12/26/2023 12:55 PM
[2023-12-26] MEDS ORDERED: PHARMACIST DISCHARGE MED REC CONSULT PRN ×2 (14:49→19:34)
[2023-12-26] MEDS: CLOPIDOGREL BISULFATE 300 MG TAB PO STA (15:15)
[2023-12-26] MEDS: GADOBUTROL 30ML VIAL IV ONE (16:38)
--- NOTE | 2023-12-26 17:06 | Magnetic Resonance Report ---
MR angio head wo con, MR angio neck wo/w con CLINICAL HISTORY: Stroke. Attention to [place] [facility] [place] TECHNIQUE: 3D time of flight MRA of the head and neck was performed without intravenous contrast. 3-D reconstructions were obtained in multiple planes. Comparison: Comparison is made to MRI brain 12/26/2023 FINDINGS: Flow signal consistent with patency is shown within the common carotid, cervical segments of the inte rnal carotid, external carotid, and vertebral arteries. No aneurysm, dissection, hemodynamically sign ificant flow stenosis, nor occlusion is present. Flow signal is shown in the intracranial segments of the internal carotid arteries, the anterior, mid dle and posterior cerebral arteries, the anterior and posterior communicating arteries, cerebellar ar teries, the intracranial segments of the vertebral arteries, and the basilar artery. No aneurysm, ar teriovenous malformation, dissection, nor hemodynamically significant flow stenosis is shown. Assessment of stenosis of the internal carotid arteries is based on NASCET criteria. IMPRESSION: No evidence of acute intracranial abnormality. In particular, no occlusion, hemorrhage, or aneurysmal disease is seen. Patency of the bilateral carotid and vertebral arteries with no evidence of hemodyn amically significant stenosis. ACT 112: Negative or not required by law. Electronically signed by: Nikunj Be M.D. 12/26/2023 5:04 PM
[2023-12-26] MEDS ORDERED: ONDANSETRON INJ 2 MG/ML 2 ML VIAL IV PRN (19:34)
[2023-12-26] MEDS ORDERED: POLYETHYLENE (MIRALAX) 17 GM PACK PO PRN (19:34)
[2023-12-26] MEDS: SODIUM CHLORIDE 0.65% NA SOLN 45 ML (OCEAN) NAE SCH (21:51)
[2023-12-26] MEDS: FLUTICASONE PROPIONATE NA SPR 16 GM BTL NAE SCH (21:55)
[2023-12-26] MEDS: FEXOFENADINE HCL 180 MG TAB PO SCH (21:56)
[2023-12-26] MEDS: ARTIFICIAL TEARS OP SCH (21:57)
[2023-12-26] MEDS: ACETAMINOPHEN 500 MG TAB PO SCH (23:54)
[2023-12-27 04:03] LABS: Appearance Urine Clear (Clear); Bacteria Urine Automated None Seen (None Seen); Bilirubin Urine Negative (Negative); Blood Urine Negative (Negative); Cast Urine Automated 0-2 /lpf (0-2); Color Urine Yellow; Epithelial Cell Urine Auto 0-2 /hpf (0-2); Glucose Urine UA Negative (Negative); Ketones Urine Negative (Negative); Leukocyte Esterase Urine 2+ (Negative); Nitrite Urine Negative (Negative); Protein Urine Negative (Negative); RBC Urine Automated 0-2 /hpf (0-2); Specific Gravity Urine 1.019 (1.000-1.030); Urobilinogen Urine Negative (Negative); pH Urine 5.5 (4.5-7.5)
[2023-12-27 06:31] LABS: BUN Creatinine Ratio 25.5 (10-20); Calcium 9.3 mg/dl (8.6-10.3); Chol HDL Ratio 2.7 (0-5); Creatinine Clr Calc Pharmacy 91.3 ml/min; Potassium 3.6 mmol/L (3.5-5.1)
[2023-12-27 06:36] LABS: Hematocrit (blood only) 37.8 % (37.0-47.0); Hemoglobin 12.3 g/dl (12.0-16.0); Mean Corpuscular Hemoglobin 28.7 pg (25.0-34.0); Mean Corpuscular Hgb Conc 32.5 g/dL (32.0-36.0); Mean Corpuscular Volume 88.1 fL (80.0-100.0); Mean Platelet Volume 9.2 fL (9.4-12.4); Platelet Count 379 K/uL (130-400); RDW Coefficient of Variation 12.9 % (11.5-14.5); RDW Standard Deviation 41.4 fL (36.4-46.3); Red Blood Count 4.29 M/uL (4.20-5.40); White Blood Count 9.44 K/ul (4.8-10.8)
[2023-12-27] MEDS: ATORVASTATIN 40 MG TAB PO SCH (08:44)
[2023-12-27] MEDS: CEROVITE ADV FORMULA TAB PO SCH (08:44)
[2023-12-27] MEDS: CLOPIDOGREL BISULFATE 75 MG TAB PO SCH (08:45)
[2023-12-27] MEDS: CHOLECALCIFEROL 25 MCG (1000 UNITS) TAB PO SCH (08:45)
[2023-12-27] MEDS: HEPARIN SOD 5,000 UNIT/0.5 ML VIAL SQ SCH (08:49)
--- NOTE | 2023-12-27 13:59 | Neurology Consultation ---
Date of Consultation December 27, 2023 Assessment & Plan (1) Acute CVA (cerebrovascular accident): Right frontal lobe small vessel ischemic stroke Recommend continued stroke work up to include the following: Echocardiogram as part of complete stroke workup Continue frequent neurological assessments Obtain stat CT brain without contrast for any acute neurological decline Continue to monitor/control blood pressure & blood glucose Continue to monitor telemetry closely Recommend ZioPatch at DC if no evidence of arrhythmia during inpatient monitoring Continue to monitor renal and hepatic function, keep euvolemic Metabolic workup should include hgbA1c, fasting lipids, homocysteine, TSH, D Dimer, RPR, urinalysis Recommend continue clopidogrel 75mg PO daily Recommend high dose statin therapy indefinitely if tolerated Ok from neurology perspective for VTE prophylaxis PT/OT/SLT to eval and treat Follow up with PCP Telehealth Consultation Telehealth Information Telehealth Information: I performed this visit using a real-time telehealth connection between my location and the patients location ([facility]). After connecting through interactive tele-video, patient was identified by name and date of and/or wristband check.Patient (or authorized healthcare account representative) was informed that this was a telemedicine visit and it was being conducted confidentially over secure lines. My office door was closed and no one else was present in the room with me.Patient (or authorized healthcare account representative) provided consent to proceed with the visit, expressed an understanding of privacy and security of the telemedicine visit, and gave permission to have a hospital account representative in the room in order to assist with the visit and to conduct portions of the visit, as needed. I informed the patient (or authorized healthcare account representative) that I reviewed their record and presented the opportunity for them to ask any questions regarding the visit today. The patient agreed to participate. History of Present Illness Reason for Consultation: Stroke Requesting Physician: Dr. Campbell Attending Physician: Naeem Campbell MD History of Present Illness 83yo female with significant past medical hx of HTN, DM, dyslipidemia presented with LUE- hand weakness not considered an IV thrombolytic candidate due to timing of onset of symptoms. She reportedly was well at time of going to sleep evening prior but noted symptoms of left hand weakness upon awakening. She has undergone CT brain without contrast revealing no evidence of intracranial hemorrhage or acute intracranial pathology. She has undergone MRI brain revealing area of likely acute ischemic stroke right frontal lobe comporting with patients presenting complaint. MRA of head and neck reveal no overt evidence of LVO or significant/flow limiting stenosis. I have performed televideo consultation. She is alert & oriented; able to answer all questions appropriately. She reports symptoms have resolved. Feels LUE/hand has returned to baseline. Neurological exam is non lateralizing/nonfocal in terms of motor strength and coordination. NIHSS=0 Allergies Allergy/AdvReac Type Severity Reaction Status Date / Time adhesive Allergy Severe REDNESS, Verified 12/26/23 15:22 BLISTERS, SKIN TEARS OFF Iodinated Contrast Media Allergy Severe ANAPHYLAXIS Verified 12/26/23 14:49 aspirin Allergy Intermediate RASH Verified 12/26/23 14:49 grass pollen-perennial rye, Allergy Intermediate SNEEZING, Verified 12/26/23 14:49 standar CONGESTION iodine Allergy Intermediate TOPICAL Verified 12/26/23 14:49 (BETADINE)- WELTS mold Allergy Intermediate SNEEZING, Verified 12/26/23 14:49 CONGESTION pollen extracts Allergy Intermediate SNEEZING, Verified 12/26/23 14:49 CONGESTION Sulfa (Sulfonamide Allergy Intermediate RASH PER Verified 12/26/23 14:49 Antibiotics) [facility] Egg Derived Allergy Unknown POSITIVE Verified 12/26/23 14:49 ALLERGY TEST allopurinol AdvReac Intermediate NAUSEA/VOMI Verified 12/26/23 14:49 TING colchicine AdvReac Intermediate Diarrhea Verified 12/26/23 14:49 oxycodone AdvReac Intermediate GI UPSET Verified 12/26/23 15:23 amlodipine AdvReac Mild Flushing Verified 12/26/23 14:49 Home Medications Medication Instructions Recorded Confirmed Type atorvastatin 10 mg tablet 10 mg PO QAM 03/02/22 12/26/23 History azelastine 137 mcg (0.1 %) nasal 2 spray intranasal BID 03/02/22 12/26/23 History spray cholecalciferol (vitamin D3) 25 25 mcg PO DAILY 03/02/22 12/26/23 History mcg (1,000 unit) tablet (Vitamin D3) fluticasone propionate 50 2 spray intranasal BID Congestion 03/02/22 12/26/23 History mcg/actuation nasal spray,suspension lisinopril 20 1 tab PO BID 03/02/22 12/26/23 History mg-hydrochlorothiazide 12.5 mg tablet acetaminophen 650 mg 1,300 mg PO Q8H 12/26/23 12/26/23 History tablet,extended release (Tylenol 8 Hour) fexofenadine 180 mg tablet 180 mg PO HS 12/26/23 12/26/23 History ketotifen fumarate 0.025 % (0.035 1 drp ophthalmic (eye) BID PRN 12/26/23 12/26/23 History %) eye drops (Zaditor) ITCHY EYES [id number]-[id number]-[id number] tablet 1 tab PO DAILY 12/26/23 12/26/23 History propylene glycol 0.6 % eye drops 1 drp ophthalmic (eye) BID 12/26/23 12/26/23 History sodium chloride 0.65 % nasal spray 1 spray intranasal BID 12/26/23 12/26/23 History aerosol ([place] Saline) Patient History Medical History (Updated 12/26/23 @ 16:23 by Jessica Tracey PA-C) Gouty arthritis Dyslipidemia DM (diabetes mellitus), type 2 Rhinitis Hypertension Gout Surgical History (Updated 12/26/23 @ 16:23 by Jessica Tracey PA-C) H/O cataract removal with insertion of prosthetic lens H/O total hysterectomy History of tonsillectomy Family History (Updated 12/26/23 @ 16:23 by Jessica Tracey PA-C) Other Diabetes Stroke Social History (Updated 12/26/23 @ 16:21 by Jessica Tracey PA-C) Smoking Status: Former smoker Hx Alcohol Use: No Hx Substance Use: No Preferred Language: Vietnamese Feels Safe at Home: Yes Physical Exam Neurological Examination: Mental Status: Awake and alert. Oriented to person, place, and time. Fluency naming repetition and comprehension appear grossly intact. Affect remains appropriate. CN testing: I: Denies changes in ability to smell II:Reports no changes in visual acuity III/IV/: No evidence of gaze preference, hippus, nystagmus or roving eye movements V: Facial sensation reportedly grossly intact to light touch bilaterally VII: Facial movements appear without evidence of asymmetry VIII: Hearing appears grossly intact to loud voice bilaterally IX/X: Palate appears to elevate symmetrically XI: Shoulder shrug appears symmetric/ grossly intact bilaterally XII: Tongue protrudes midline without evidence of biting Motor exam: Strength appears grossly intact/symmetric in all extremities Sensory: Sensation is reportedly grossly intact throughout Coordination: Finger to nose and heel to berry were intact. No apparent evidence of dysmetria or dysdiadochokinesia Reflexes: Deferred Gait: Deferred Results & Data Vital Signs (Past 12 Hours) Vital Signs Temp Pulse Pulse Resp BP Pulse Ox O2 Del Method 12/27/23 09:00 59 L 12/27/23 07:50 36.6 C 64 18 176/78 H 92 Room Air 12/27/23 03:17 36.6 C 67 18 161/70 H 96 Room Air Laboratory Results Abnormal lab results 12/27/23 12/27/23 Range/Units 03:25 05:37 MPV 9.2 L (9.4-12.4) fL Creatinine 0.55 L (0.6-1.2) mg/dl BUN/Creatinine Ratio 25.5 H (10-20) Ur Leukocyte Esterase 2+ H (Negative) Urine WBC (Auto) 11-20 H (0-5) /hpf Diagnostic Findings Brain MRI 12/26/23 11:52 MR brain wo con CLINICAL HISTORY: L hand weakness TECHNIQUE: Multiplanar and multisequence MR images of the brain were obtained without intravenous contrast. Comparison: Comparison is made to MRI brain 12/26/2023 FINDINGS: Punctate focus of restricted diffusion is seen in the right lateral frontal lobe (series 4 image 15 ). The white matter is unremarkable. The ventricular system is normal in appearance. No mass is seen. There is no mass effect or midline shift. There is no evidence of acute intraparenchymal hemorrhage. No extra axial fluid collections are seen. The corpus callosum, pituitary gland, and cerebellar tonsils appear grossly unremarkable. Flow voids of the major intracranial arterial vessels are identified. The imaged portions of the paranasal sinuses, mastoid air cells, and orbits are unremarkable. IMPRESSION: Punctate focus of restricted diffusion in the right lateral frontal lobe may represent a tiny infarct. No evidence of hemorrhagic transformation. ACT 112: Negative or not required by law. Electronically signed by: Nikunj Be M.D. 12/26/2023 2:11 PM Neck MRA 12/26/23 14:49 MR angio head wo con, MR angio neck wo/w con CLINICAL HISTORY: Stroke. Attention to [place] TECHNIQUE: 3D time of flight MRA of the head and neck was performed without intravenous contrast. 3-D reconstructions were obtained in multiple planes. Comparison: Comparison is made to MRI brain 12/26/2023 FINDINGS: Flow signal consistent with patency is shown within the common carotid, cervical segments of the internal carotid, external carotid, and vertebral arteries. No aneurysm, dissection, hemodynamically significant flow stenosis, nor occlusion is present. Flow signal is shown in the intracranial segments of the internal carotid arteries, the anterior, middle and posterior cerebral arteries, the anterior and posterior communicating arteries, cerebellar arteries, the intracranial segments of the vertebral arteries, and the basilar artery. No aneurysm, arteriovenous malformation, dissection, nor hemodynamically significant flow stenosis is shown. Assessment of stenosis of the internal carotid arteries is based on NASCET criteria. IMPRESSION: No evidence of acute intracranial abnormality. In particular, no occlusion, hemorrhage, or aneurysmal disease is seen. Patency of the bilateral carotid and vertebral arteries with no evidence of hemodynamically significant stenosis. ACT 112: Negative or not required by law. Electronically signed by: Nikunj Be M.D. 12/26/2023 5:04 PM Head MRA 12/26/23 14:53 MR angio head wo con, MR angio neck wo/w con CLINICAL HISTORY: Stroke. Attention to [place] [facility] [place] TECHNIQUE: 3D time of flight MRA of the head and neck was performed without intravenous contrast. 3-D reconstructions were obtained in multiple planes. Comparison: Comparison is made to MRI brain 12/26/2023 FINDINGS: Flow signal consistent with patency is shown within the common carotid, cervical segments of the internal carotid, external carotid, and vertebral arteries. No aneurysm, dissection, hemodynamically significant flow stenosis, nor occlusion is present. Flow signal is shown in the intracranial segments of the internal carotid arteries, the anterior, middle and posterior cerebral arteries, the anterior and posterior communicating arteries, cerebellar arteries, the intracranial segments of the vertebral arteries, and the basilar artery. No aneurysm, arteriovenous malformation, dissection, nor hemodynamically significant flow stenosis is shown. Assessment of stenosis of the internal carotid arteries is based on NASCET criteria. IMPRESSION: No evidence of acute intracranial abnormality. In particular, no occlusion, hemorrhage, or aneurysmal disease is seen. Patency of the bilateral carotid and vertebral arteries with no evidence of hemodynamically significant stenosis. ACT 112: Negative or not required by law. Electronically signed by: Nikunj Be M.D. 12/26/2023 5:04 PM Medications Administered Home Medications Medication Instructions Recorded Confirmed Last Taken atorvastatin 10 mg tablet 10 mg PO QAM 03/02/22 12/26/23 12/26/23 azelastine 137 mcg (0.1 %) nasal 2 spray intranasal BID 03/02/22 12/26/23 12/26/23 10:00 spray cholecalciferol (vitamin D3) 25 25 mcg PO DAILY 03/02/22 12/26/23 12/26/23 mcg (1,000 unit) tablet (Vitamin D3) fluticasone propionate 50 2 spray intranasal BID Congestion 03/02/22 12/26/23 12/26/23 10:00 mcg/actuation nasal spray,suspension lisinopril 20 1 tab PO BID 03/02/22 12/26/23 12/26/23 10:00 mg-hydrochlorothiazide 12.5 mg tablet acetaminophen 650 mg 1,300 mg PO Q8H 12/26/23 12/26/23 12/26/23 08:00 tablet,extended release (Tylenol 8 Hour) fexofenadine 180 mg tablet 180 mg PO HS 12/26/23 12/26/23 12/25/23 ketotifen fumarate 0.025 % (0.035 1 drp ophthalmic (eye) BID PRN 12/26/23 12/26/23 Unknown %) eye drops (Zaditor) ITCHY EYES [id number]-jddqqzwh-ldcmnt tablet 1 tab PO DAILY 12/26/23 12/26/23 12/26/23 propylene glycol 0.6 % eye drops 1 drp ophthalmic (eye) BID 12/26/23 12/26/23 12/26/23 10:00 sodium chloride 0.65 % nasal spray 1 spray intranasal BID 12/26/23 12/26/23 12/26/23 10:00 aerosol ([place] Saline) Active Medications Generic Name Dose Route Start Last Admin Trade Name Freq PRN Reason Stop Dose Admin Acetaminophen 1,000 mg 12/27/23 00:00 12/27/23 08:44 Acetaminophen 500 Mg Tab PO 01/25/24 00:00 1,000 mg Q8H MEJIA Administration Artificial Tears 1 drops 12/26/23 21:00 12/27/23 08:42 Artificial Tears OP 01/25/24 20:59 1 drops BID MEJIA Administration Atorvastatin Calcium 40 mg 12/27/23 09:00 12/27/23 08:44 Atorvastatin 40 Mg Tab PO 01/26/24 08:59 40 mg QAM MEJIA Administration Clopidogrel Bisulfate 75 mg 12/27/23 09:00 12/27/23 08:45 Clopidogrel Bisulfate 75 Mg Tab PO 01/26/24 08:59 75 mg QAM MEJIA Administration Fexofenadine HCl 180 mg 12/26/23 21:00 12/26/23 21:56 Fexofenadine Hcl 180 Mg Tab PO 01/25/24 20:59 180 mg HS MEJIA Administration Fluticasone Propionate 2 sprays 12/26/23 21:00 12/27/23 08:44 Fluticasone Propionate Na Spr 16 Gm Btl DEMETRIUS 01/25/24 20:59 2 sprays BID MEJIA Administration Heparin Sodium (Porcine) 5,000 units 12/27/23 08:00 12/27/23 12:42 Heparin Sod 5,000 Unit/0.5 Ml Vial SQ 01/26/24 07:59 Not Given Q8 MEJIA Miscellaneous 1 each 12/27/23 00:00 12/27/23 12:43 *Ketotifen*Order Awaiting Action N/A 01/26/24 00:00 Not Given QS MEJIA Multivitamins/Minerals 1 tab 12/27/23 09:00 12/27/23 08:44 Cerovite Adv Formula Tab PO 01/26/24 08:59 1 tab DAILY MEJIA Administration Sodium Chloride 1 sprays 12/26/23 21:00 12/27/23 08:42 Sodium Chloride 0.65% Na Soln 45 Ml ([place]) DEMETRIUS 01/25/24 20:59 1 sprays BID MEJIA Administration Vitamin D 25 mcg 12/27/23 09:00 12/27/23 08:45 Cholecalciferol 25 Mcg (1000 Units) Tab PO 01/26/24 08:59 25 mcg DAILY MEJIA Administration
[2023-12-27] MEDS ORDERED: STROKE PATIENT DISCHARGE STA ×2 (15:07→15:09)
--- NOTE | 2023-12-27 15:33 | Discharge Summary ---
Date of Service December 27, 2023 Admission HPI Per Admitting Provider This is an 83-year-old female with PMH of hypertension, diet controlled DM II, dyslipidemia, history of uterine cancer and other medical problems listed below who presents to the hospital's morning with left hand weakness since this morning. Patient was last known well at 0800 when she woke to take her scheduled Tylenol for history of gouty arthritis and then went back to bed. When she woke up at 9:30 AM, went to meat pickler her phone with her left hand and dropped it immediately, noting weakness out of the ordinary in that extremity. Denies any weakness on the right side, no ambulatory dysfunction, no dysarthria or difficulty swallowing. Called family and was brought to ED for further evaluation at by then was outside tpa window. Denies any known personal stroke history. Since arrival, left upper extremity feels stronger but still notably "clumsy" with left hand. Denies any numbness or paresthesias of LUE, just weakness. No headache, lightheadedness, visual changes, chest pain, shortness of breath, nausea, vomiting, abdominal pain, dysuria, diarrhea or constipation. Admission Exam Per Admitting Provider General Appearance: WD/WN, vitals as above, NAD, sitting up in bed, pleasant, conversing easily Head: normocephalic, atraumatic Eyes: normal inspection, PERRL, conjunctivae normal, anicteric sclerae ENT: external ear and nose normal, oropharynx normal Neck: normal visual inspection, trachea midline, no thyromegaly Respiratory: normal respiratory effort, lungs clear to auscultation, no wheeze, rales, rhonchi. No accessory muscle use Cardiovascular: regular rate, rhythm, no murmur, normal peripheral pulses, no BLE edema. Vessels: no JVD Chest: normal inspection of chest Abdomen/GI: normal bowel sounds, soft, nontender, no hepatosplenomegaly Extremities/Musculoskeletal: no cyanosis or clubbing, extremities motor strength 5/5 Neurologic: PERRL, EOMI, accommodation nl, no face palsy, no dysarthria, CN's II-XI intact bilaterally, LUE 4/5 calculus professor strength, some dysmetria noted on [id number]. LLE, RUE and RLE 5/5 LILLIAN Psychiatric: A+Ox3, +anxious Skin: no rashes, normal color, warm/dry Principal Diagnosis Acute CVA Discharge Exam General Appearance: WD/WN, vitals as above, NAD, sitting up in bed, pleasant, conversing easily Head: normocephalic, atraumatic Eyes: normal inspection, PERRL, conjunctivae normal, anicteric sclerae ENT: external ear and nose normal, oropharynx normal Neck: normal visual inspection, trachea midline, no thyromegaly Respiratory: normal respiratory effort, lungs clear to auscultation, no wheeze, rales, rhonchi. No accessory muscle use Cardiovascular: regular rate, rhythm, no murmur, normal peripheral pulses, no BLE edema. Vessels: no JVD Chest: normal inspection of chest Abdomen/GI: normal bowel sounds, soft, nontender, no hepatosplenomegaly Extremities/Musculoskeletal: no cyanosis or clubbing, extremities motor strength 5/5 Neurologic: PERRL, EOMI, accommodation nl, no face palsy, no dysarthria, CN's II-XI intact bilaterally, LUE 4/5 calculus professor strength, some dysmetria noted on [id number]. LLE, RUE and RLE 5/5 LILLIAN Psychiatric: A+Ox3, +anxious Skin: no rashes, normal color, warm/dry Discharge Data Allergies Allergy/AdvReac Type Severity Reaction Status Date / Time adhesive Allergy Severe REDNESS, Verified 12/26/23 15:22 BLISTERS, SKIN TEARS OFF Iodinated Contrast Media Allergy Severe ANAPHYLAXIS Verified 12/26/23 14:49 aspirin Allergy Intermediate RASH Verified 12/26/23 14:49 grass pollen-perennial rye, Allergy Intermediate SNEEZING, Verified 12/26/23 14:49 standar CONGESTION iodine Allergy Intermediate TOPICAL Verified 12/26/23 14:49 (BETADINE)- WELTS mold Allergy Intermediate SNEEZING, Verified 12/26/23 14:49 CONGESTION pollen extracts Allergy Intermediate SNEEZING, Verified 12/26/23 14:49 CONGESTION Sulfa (Sulfonamide Allergy Intermediate RASH PER Verified 12/26/23 14:49 Antibiotics) [facility] Egg Derived Allergy Unknown POSITIVE Verified 12/26/23 14:49 ALLERGY TEST allopurinol AdvReac Intermediate NAUSEA/VOMI Verified 12/26/23 14:49 TING colchicine AdvReac Intermediate Diarrhea Verified 12/26/23 14:49 oxycodone AdvReac Intermediate GI UPSET Verified 12/26/23 15:23 amlodipine AdvReac Mild Flushing Verified 12/26/23 14:49 Consultations 12/26/23 14:40 ED Decision to Admit Stat 12/26/23 15:00 Consult Neurology Routine Ordered Studies 12/26/23 11:52 CT head/brain wo con Stat MRI Brain [MR brain wo con] Stat 12/26/23 14:49 MR angio neck wo/w con Urgent 12/26/23 14:53 MR angio head wo con Urgent Hospital Course (1) Left hand weakness: (2) Acute CVA (cerebrovascular accident): (3) DM (diabetes mellitus), type 2: (4) Hypertension: (5) Gouty arthritis: (6) Dyslipidemia: Plan This is an 83-year-old female with PMH of hypertension, diet controlled DM II, dyslipidemia, history of uterine cancer and other medical problems listed below who presents to the hospital's morning with left hand weakness Head CT on admission; no acute intracranial hemorrhage, no evidence of acute territorial infarction or other acute intracranial disease process Brain MRI wo con with punctate focus of restricted diffusion in the right lateral frontal lobe may represent a tiny infarct. No evidence of hemorrhagic transformation Patient was admitted to telemetry floor; was placed on monitor car operator, neuro- checks. She was started on Plavix; dose of Lipitor was increased to 40 mg once a day as per neurology recommendation Echocardiogram showed EF of 55-60%; grade I diastolic dysfunction. No cardiac arrhythmias noted on tele Overnight, patient reports improvement in her left arm weakness. PT OT EXPLOSIVE SPECIALIST ordered. Patient was offered continued inpatient monitoring; she wanted to go home as he was feeling much better. She was prescribed Plavix and Lipitor. Patient has TSH, homocysteine, treponemal antigen pending at the time of discharge. Please note the above document was generated using voice recognition software. It may contain grammatical, syntax or spelling errors. Any formal questions or concerns about the content, text or information contained within the body of this dictation should be directly addressed to the provider for clarification Total Time Total Time Spent Total Time Spent (In Minutes): 60 Total Time Includes: Examination of the Patient, Discharge Planning, Medication Reconciliation, Communication With Other Providers and Other Discharge Plan Discharge Items Patient Disposition: Home - Self-Care Reason For Visit: STROKE EVAL Discharge Diagnosis: Acute right frontal ischemic stroke Activity: Resume your previous activity Non-emergency contact: Primary Care Provider Call non-emergency contact if: you have any medication questions and your symptoms worsen Follow-up/Referrals: Alejandro Simmons DO [Primary Care Provider] - Diet: Regular Addtl Attending Provider Instructions: You were admitted to the hospital due to left hand stroke. You underwent brain MRI which showed a small stroke in right lateral frontal lobe. You were evaluated by neurology. They recommend following medication changes; 1) Increase Lipitor to 40 mg once a day. A new prescription has been sent to your pharmacy. Please start taking it from tomorrow 2) Start taking Plavix 75 mg once a day. An appointment with your primary care doctor will be made sometime later this week or next week. Discussed about Zio patch monitor. The monitor car operator during the hospitalization did not show any arrhythmia. Some blood Results ( homocysteine, TSH, RPR) are pending; please follow-up with your PCP regarding the results Pending Studies at Discharge: No Studies:: homocysteine, TSH, RPR Stand-Alone Forms: [facility] [employer], Smoking Cessation Medications and DC Order Prescriptions: New atorvastatin 40 mg Tablet 40 mg PO QAM Qty: 60 0RF clopidogrel 75 mg Tablet 75 mg PO QAM Qty: 60 0RF Continued lisinopril-hydrochlorothiazide 20-12.5 mg tablet 1 tab PO BID azelastine 137 mcg (0.1 %) aerosol,spray 2 spray INTRANASAL BID fluticasone propionate 50 mcg/actuation spray,suspension 2 spray INTRANASAL BID cholecalciferol (vitamin D3) [Vitamin D3] 25 mcg (1,000 unit) Tablet 25 mcg PO DAILY fexofenadine 180 mg Tablet 180 mg PO HS propylene glycol 0.6 % Drops 1 drp OPHTHALMIC (EYE) BID Rx Instructions: PRN ALSO ketotifen fumarate [Zaditor] 0.025 % (0.035 %) Drops 1 drp OPHTHALMIC (EYE) BID PRN (Reason: ITCHY EYES) Rx Instructions: administer at least 8 hours apart acetaminophen [Tylenol 8 Hour] 650 mg Tablet Extended Release 1,300 mg PO Q8H Rx Instructions: TAKES 0800, 1600, & 2359 Centrum Silver Tablet 1 tab PO DAILY [place] Saline 0.65 % Aerosol,[place] 1 spray INTRANASAL BID Rx Instructions: AND PRN Discontinued atorvastatin 10 mg tablet 10 mg PO QAM Discharge Orders: Discharge Order (Routine); Ordered 12/27/23 Ordered By: Naeem Campbell Admission Data Admit Date/Time: 12/26/23 16:51 Attending Provider: Naeem Campbell Admit Provider: Kiko Noland Primary Care Provider: Alejandro Simmons Other Providers: Kiko Noland; Rico Guerrero
[2023-12-27 15:38] LABS: Thyroid Stimulating Hormone 0.711 uIu/ml (0.300-4.500)
[2023-12-28 07:36] LABS: Estimated Average Glucose 140 mg/dl; Hemoglobin A1C 6.5 % (4.5-5.6)
--- NOTE | 2023-12-28 10:45 | Pharmacy Report ---
Pharmacist Stroke Counseling - Date of Service December 28, 2023 - Scope: Pharmacy has been consulted to provide medication discharge counseling for this patient admitted with [ischemic stroke] [hemorrhagic stroke] [transient ischemic attack] as per the Pharmacist Discharge Counseling for Stroke Patients Gary douglass - Medications on Discharge: Home Medications Medication Instructions Recorded Confirmed azelastine 137 mcg (0.1 %) nasal 2 spray intranasal BID 03/02/22 12/26/23 spray cholecalciferol (vitamin D3) 25 25 mcg PO DAILY 03/02/22 12/26/23 mcg (1,000 unit) tablet (Vitamin D3) fluticasone propionate 50 2 spray intranasal BID Congestion 03/02/22 12/26/23 mcg/actuation nasal spray,suspension lisinopril 20 1 tab PO BID 03/02/22 12/26/23 mg-hydrochlorothiazide 12.5 mg tablet acetaminophen 650 mg 1,300 mg PO Q8H 12/26/23 12/26/23 tablet,extended release (Tylenol 8 Hour) fexofenadine 180 mg tablet 180 mg PO HS 12/26/23 12/26/23 ketotifen fumarate 0.025 % (0.035 1 drp ophthalmic (eye) BID PRN 12/26/23 12/26/23 %) eye drops (Zaditor) ITCHY EYES [id number] tablet 1 tab PO DAILY 12/26/23 12/26/23 propylene glycol 0.6 % eye drops 1 drp ophthalmic (eye) BID 12/26/23 12/26/23 sodium chloride 0.65 % nasal spray 1 spray intranasal BID 12/26/23 12/26/23 aerosol ([place] Saline) New Rx's Medication Instructions Recorded atorvastatin 40 mg tablet 40 mg PO QAM #60 tabs 12/27/23 clopidogrel 75 mg tablet 75 mg PO QAM #60 tabs 12/27/23 - Action: The above medications, specifically ones for stroke treatment/prophylaxis, have been reviewed in detail with the patient and/or patient lead customer service representative(s) prior to discharge. This includes indication, common adverse reactions, drug interactions, and medication administration. Medication counseling has been employed using the teach-back method to ensure understanding. - Outcome: The patient and/or patient lead customer service representative(s) have demonstrated understanding of the medications. Additional comments: Spoke with Pat this AM, she has picked up her medications and begun taking them. She reports that her doctors explained her medications throughly and to her satisfaction. She has no questions at this time. She is going to follow-up to schedule her primary care appointment today. Thank you for allowing pharmacy to be involved in the care of this patient. Please call [phone] with any additional questions
--- NOTE | 2023-12-28 12:13 | Electrocardiogram Report ---
Test Reason : Blood Pressure : / mmHG Vent. Rate : 067 BPM Atrial Rate : 067 BPM P-R Int : 180 ms QRS Dur : 082 ms QT Int : 378 ms P-R-T Axes : 030 -30 028 degrees QTc Int : 399 ms Normal sinus rhythm Left axis deviation Anterior infarct , age undetermined Abnormal ECG When compared with ECG of 10-JUL-2017 20:45, Anterior infarct is now Present Confirmed by Jus Razo ([id number]) on 12/28/2023 12:13:05 PM Referred By: Confirmed By:Jus Razo
--- NOTE | 2023-12-28 16:11 | Communication Note ---
Date of Service: December 28, 2023 Code 44 attestation: the chart of the patient reviewed and noted that she was appropriately discharged by the attending physician. By CMS guidelines, a determination that the admission or continued stay is not medically necessary has been made by a member of the UR committee and a physician for this hospital stay, therefore a Code 44 will be completed and the Inpatient admission will be changed to outpatient. Dr Kamila Ruiz Member UR COmmittee
== END 2023-12-27 17:10 | disposition home or self-care (01) ==
LOC: ED 11:34 → EDINP 16:51 → SUATTDRO 16:51 → INTOOBSV 16:51 → 4W 19:36

== ENCOUNTER 2024-09-05 19:21 | Inpatient (IN) ==
[2024-09-05 20:20] LABS: Basophils # (auto) 0.06 K/uL (0.00-0.20); Basophils % (auto) 0.4 %; Eosinophils # (auto) 0.32 K/uL (0.00-0.50); Eosinophils % (auto) 1.9 %; Hematocrit (blood only) 38.4 % (37.0-47.0); Hemoglobin 12.3 g/dl (12.0-16.0); Immature Granulocytes # (auto) 0.08 K/uL (0.01-0.20); Immature Granulocytes % (auto) 0.5 %; Lymphocytes # (auto) 2.71 K/uL (1.20-3.40); Lymphocytes % (auto) 16.4 %; Mean Corpuscular Hemoglobin 28.7 pg (25.0-34.0); Mean Corpuscular Volume 89.5 fL (80.0-100.0); Mean Platelet Volume 9.2 fL (9.4-12.4); Monocytes # (auto) 1.49 K/uL (0.11-0.59); Neutrophils # (auto) 11.86 K/uL (1.40-6.50); Neutrophils % (auto) 71.8 %; Platelet Count 417 K/uL (130-400); RDW Coefficient of Variation 13.8 % (11.5-14.5); Red Blood Count 4.29 M/uL (4.20-5.40); White Blood Count 16.52 K/ul (4.8-10.8)
[2024-09-05 20:41] LABS: Albumin Globulin Ratio 1.3 (0.9-2); Albumin Level 4.1 gm/dl (3.4-5.0); BUN Creatinine Ratio 41.3 (10-20); Bilirubin,Total 0.3 mg/dl (0.2-1.0); Calcium 9.6 mg/dl (8.6-10.3); Creatinine Clr Calc Pharmacy 64.6 ml/min; Globulin 3.2 gm/dl (2.5-4.0); Magnesium 1.8 mg/dl (1.7-2.4); Total Protein 7.3 gm/dl (6.0-8.3)
[2024-09-05 20:48] LABS: Troponin I High Sensitivity 6.2 pg/ml (0-14)
[2024-09-05] MEDS: SODIUM CHLORIDE 0.9% 500 ML IV ONE (20:56)
[2024-09-05 20:57] LABS: Thyroid Stimulating Hormone 0.471 uIu/ml (0.300-4.500)
[2024-09-05 21:51] LABS: Appearance Urine Clear (Clear); Bacteria Urine Automated None Seen (None Seen); Bilirubin Urine Negative (Negative); Blood Urine Negative (Negative); Cast Urine Automated 0-2 /lpf (0-2); Color Urine Yellow; Epithelial Cell Urine Auto 0-2 /hpf (0-2); Glucose Urine UA Negative (Negative); Ketones Urine Negative (Negative); Leukocyte Esterase Urine 2+ (Negative); Nitrite Urine Negative (Negative); Protein Urine Negative (Negative); RBC Urine Automated 0-2 /hpf (0-2); Urobilinogen Urine Negative (Negative); pH Urine 5.5 (4.5-7.5)
--- NOTE | 2024-09-05 22:08 | XRay Report ---
Exam(s): XR CXR 1 VIEW EXAM: XR Chest, 1 View CLINICAL HISTORY: Reason for exam: Dysrhythmia. TECHNIQUE: Frontal view of the chest. COMPARISON: Prior chest x-ray from July 10, 2017. FINDINGS: Eventration of the right hemidiaphragm. Lungs: Unremarkable. No consolidation. Pleural space: Unremarkable. No pneumothorax. Heart: Unremarkable. No cardiomegaly. Mediastinum: Unremarkable. Normal mediastinal contour. Bones/joints: Unremarkable. No acute fracture. IMPRESSION: No evidence of acute cardiopulmonary process. Electronically signed by: Teresa Salinas MD 09/05/24 22:07 PM
[2024-09-05] MEDS: ROSUVASTATIN CALCIUM 20 MG TAB PO STA (22:19)
[2024-09-05] MEDS: LISINOPRIL/HCTZ 20/12.5MG 1 TAB TAB PO STA (22:19)
[2024-09-05 22:34] LABS: Adenovirus PCR Not Detected (NotDetected); Bordetella parapertussis PCR Not Detected (NotDetected); Bordetella pertussis PCR Not Detected (NotDetected); Chlamydia pneumoniae PCR Not Detected (NotDetected); Coronavirus 229E PCR Not Detected (NotDetected); Coronavirus CoV-2 (COVID19)PCR Not Detected (NotDetected); Coronavirus HKU1 PCR Not Detected (NotDetected); Coronavirus NL63 PCR Not Detected (NotDetected); Coronavirus OC43PCR Not Detected (NotDetected); Human Metapneumovirus PCR Not Detected (NotDetected); Influenza A PCR Not Detected (NotDetected); Influenza B PCR Not Detected (NotDetected); Mycoplasma pneumoniae PCR Not Detected (NotDetected); Parainfluenza Virus 1 PCR Not Detected (NotDetected); Parainfluenza Virus 2 PCR Not Detected (NotDetected); Parainfluenza Virus 3 PCR Not Detected (NotDetected); Parainfluenza Virus 4 PCR Not Detected (NotDetected); Respiratory Syncytial VirusPCR Not Detected (NotDetected); Rhinovirus/Enterovirus PCR Not Detected (NotDetected)
--- NOTE | 2024-09-05 23:11 | History & Physical Report ---
Date of Service September 05, 2024 Assessment & Plan (1) Weakness: Plan: 83-year-old female with past medical history significant for dyslipidemia, gouty arthritis, diabetes, history of CVA, hypertension, PVCs, diverticulosis of colon, osteoporosis, history of uterine cancer, presents with weakness and possible A-fib. In December 2023 patient had a stroke. At that time she was presented with left hand weakness and MRI showed tiny infarct in the right lateral frontal lobe. Patient is on Plavix and statin. Her left hand weakness has resolved. Patient had a ZIO monitor in January 2024 for couple of weeks and it did not show any A-fib. [facility] and there is a plan for loop recorder. Patient's [id number]-tls is a retired [employer] [facility] physician who brought the patient to ER today. Last couple days patient was feeling weak and tired and she was feeling skipped beats. Her [id number]-on-snd who is a retired physician came and checked on her and on iPhone quality assurance monitor chassis Patient rhythm was reading as A-fib. This reason she was brought to the hospital for further workup. Patient currently resting comfortably and hemodynamically stable. Denies any headache. No dizziness. No blurred vision. No earache. Has some runny nose from her sinuses. No sore throat. No cough. No difficulty swallowing. Appetite is okay. Denies any chest pain or shortness of breath. No nausea or vomiting. No abdominal pain. Normal bowel and bladder movements. Denies any blood in the stools. No burning micturition. No hematuria. No rash. Weakness and tiredness Possible A-fib On iPhone quality assurance monitor chassis her rhythm was read as A-fib History of CVA in December 2023 Will monitor on telemetry Repeat EKG in a.m. Repeat labs Echo Currently consult for further recommendations History of CVA On Plavix and statin Hypertension On lisinopril hydrochlorothiazide Will monitor Hyperlipidemia On statin Diabetes Not on medications Will follow HbA1c levels DVT prophylaxis SCDs for now Disposition Telemetry Full code. History of Present Illness Chief Complaint: Weakness, A-fib Primary Care Provider: Alejandro Simmons DO 83-year-old female with past medical history significant for dyslipidemia, gouty arthritis, diabetes, history of CVA, hypertension, PVCs, diverticulosis of colon, osteoporosis, history of uterine cancer, presents with weakness and possible A-fib. In December 2023 patient had a stroke. At that time she was presented with left hand weakness and MRI showed tiny infarct in the right lateral frontal lobe. Patient is on Plavix and statin. Her left hand weakness has resolved. Patient had a ZIO monitor in January 2024 for couple of weeks and it did not show any A-fib. She was followed with [facility] and there is a plan for loop recorder. Patient's [id number]-bdm is a retired [employer] [facility] physician who brought the patient to ER today. Last couple days patient was feeling weak and tired and she was feeling skipped beats. Her gfstipl-oo-pzy who is a retired physician came and checked on her and on iPhone quality assurance monitor chassis Patient rhythm was reading as A-fib. This reason she was brought to the hospital for further workup. Patient currently resting comfortably and hemodynamically stable. Denies any headache. No dizziness. No blurred vision. No earache. Has some runny nose from her sinuses. No sore throat. No cough. No difficulty swallowing. Appetite is okay. Denies any chest pain or shortness of breath. No nausea or vomiting. No abdominal pain. Normal bowel and bladder movements. Denies any blood in the stools. No burning micturition. No hematuria. No rash. Past medical history. As mentioned above. Past surgical history. Biopsy of uterus lining. Breast biopsy. Colonoscopy. Partial removal of eye fluid. Reduction of breast. Cataracts. Tonsillectomy adenoidectomy. Total abdominal hysterectomy with removal of tubes. Social history. Quit smoking 1992. Smoked 1 pack for 30 years. Alcohol occasional. No drug use. Family history. Mother had allergies. Diabetes. Heart disorder. Hypertension. Osteoporosis. Father had gout. Aortic stenosis. Brother had CLL. Aunt had glaucoma. Allergies Allergy/AdvReac Type Severity Reaction Status Date / Time adhesive Allergy Severe REDNESS, Verified 09/05/24 20:21 BLISTERS, SKIN TEARS OFF Iodinated Contrast Media Allergy Severe ANAPHYLAXIS Verified 09/05/24 20:21 aspirin Allergy Intermediate RASH Verified 09/05/24 20:21 grass pollen-perennial rye, Allergy Intermediate SNEEZING, Verified 09/05/24 20:21 standar CONGESTION iodine Allergy Intermediate TOPICAL Verified 09/05/24 20:21 (BETADINE)- WELTS mold Allergy Intermediate SNEEZING, Verified 09/05/24 20:21 CONGESTION pollen extracts Allergy Intermediate SNEEZING, Verified 09/05/24 20:21 CONGESTION Sulfa (Sulfonamide Allergy Intermediate RASH PER Verified 09/05/24 20:21 Antibiotics) [facility] Egg Derived Allergy Unknown POSITIVE Verified 09/05/24 20:21 ALLERGY TEST allopurinol AdvReac Intermediate NAUSEA/VOMI Verified 09/05/24 20:21 TING colchicine AdvReac Intermediate Diarrhea Verified 09/05/24 20:21 oxycodone AdvReac Intermediate GI UPSET Verified 09/05/24 20:21 amlodipine AdvReac Mild Flushing Verified 09/05/24 20:21 Home Medications Medication Instructions Recorded Confirmed Type azelastine 137 mcg (0.1 %) nasal 2 spray intranasal BID 03/02/22 09/05/24 History spray cholecalciferol (vitamin D3) 25 25 mcg PO QPM 03/02/22 09/05/24 History mcg (1,000 unit) tablet (Vitamin D3) lisinopril 20 1 tab PO BID 03/02/22 09/05/24 History mg-hydrochlorothiazide 12.5 mg tablet acetaminophen 650 mg 1,300 mg PO Q8H 12/26/23 09/05/24 History tablet,extended release (Tylenol 8 Hour) fexofenadine 180 mg tablet 180 mg PO HS 12/26/23 09/05/24 History ketotifen fumarate 0.025 % (0.035 1 drp ophthalmic (eye) BID PRN 12/26/23 09/05/24 History %) eye drops (Zaditor) ITCHY EYES tumilwbixsnz-qjxpgbmf-fyoxws tablet 1 tab PO DAILY 12/26/23 09/05/24 History propylene glycol 0.6 % eye drops 1 drp ophthalmic (eye) BID 12/26/23 09/05/24 History sodium chloride 0.65 % nasal spray 1 spray intranasal BID 12/26/23 09/05/24 History aerosol (Zamora Saline) clopidogrel 75 mg tablet 75 mg PO QAM #60 tabs 12/27/23 09/05/24 Rx coenzyme Q10 200 mg capsule (Co 200 mg PO QPM 09/05/24 09/05/24 History Q-10) rosuvastatin 20 mg tablet 20 mg PO QPM 09/05/24 09/05/24 History Past Med/Surg History Problem List Weakness Acute CVA (cerebrovascular accident) (Acute) Medical History Left hand weakness Gouty arthritis Dyslipidemia DM (diabetes mellitus), type 2 Rhinitis Hypertension Gout Surgical History H/O cataract removal with insertion of prosthetic lens H/O total hysterectomy History of tonsillectomy Family History Other Diabetes Stroke Social History Smoking Status: Former smoker Smoking End Date: 30+ years ago; Hx Alcohol Use: No Hx Substance Use: No Preferred Language: Tristanian Communication Ability: Effective 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 ENT- oropharynx clear Neck- supple, no JVD. Lungs- clear to auscultation no wheezing or crackles Heart- regular rate and rhythm; no murmur, no gallop. Abdomen- normal bowel sounds, soft, nontender, no distension Extremities- no pretibial edema, no erythema seen Neuro- alert, oriented PERRL, EOMI; no facial palsy; no dysarthria; power 5/5 in all extremities co ordination of movements normal Results & Data Results & Data Vital Signs (Past 12 Hours) Vital Signs Temp Pulse Pulse Resp BP BP Pulse Ox 09/05/24 22:30 68 19 144/53 H 96 09/05/24 22:00 71 21 157/63 H 94 09/05/24 22:00 70 15 157/63 H 94 09/05/24 21:30 74 20 140/65 96 09/05/24 21:00 69 18 144/61 H 94 09/05/24 20:56 69 22 124/64 95 09/05/24 20:30 78 19 105/52 L 95 09/05/24 20:00 74 20 133/67 92 09/05/24 19:52 75 18 138/66 96 09/05/24 19:50 74 09/05/24 19:26 36.4 C L 81 18 180/83 H 94 O2 Del Method 09/05/24 22:30 Room Air 09/05/24 22:00 Room Air 09/05/24 22:00 Room Air 09/05/24 21:30 Room Air 09/05/24 21:00 Room Air 09/05/24 20:56 Room Air 09/05/24 20:30 Room Air 09/05/24 20:00 Room Air 09/05/24 19:52 Room Air 09/05/24 19:50 09/05/24 19:26 Room Air Diagnostic Findings Laboratory Results WBC 16.52 K/ul (4.8-10.8) H 09/05/24 19:47 RBC 4.29 M/uL (4.20-5.40) 09/05/24 19:47 Hgb 12.3 g/dl (12.0-16.0) 09/05/24 19:47 Hct 38.4 % (37.0-47.0) 09/05/24 19:47 MCV 89.5 fL (80.0-100.0) 09/05/24 19:47 MCH 28.7 pg (25.0-34.0) 09/05/24 19:47 MCHC 32.0 g/dL (32.0-36.0) 09/05/24 19:47 RDW Std Deviation 45.0 fL (36.4-46.3) 09/05/24 19:47 RDW Coeff of Chase 13.8 % (11.5-14.5) 09/05/24 19:47 Plt Count 417 K/uL (130-400) H 09/05/24 19:47 MPV 9.2 fL (9.4-12.4) L 09/05/24 19:47 Immature Gran % (Auto) 0.5 % 09/05/24 19:47 Neut % (Auto) 71.8 % 09/05/24 19:47 Lymph % (Auto) 16.4 % 09/05/24 19:47 Tama % (Auto) 9.0 % 09/05/24 19:47 Eos % (Auto) 1.9 % 09/05/24 19:47 Baso % (Auto) 0.4 % 09/05/24 19:47 Neut # (Auto) 11.86 K/uL (1.40-6.50) H 09/05/24 19:47 Lymph # (Auto) 2.71 K/uL (1.20-3.40) 09/05/24 19:47 Tama # (Auto) 1.49 K/uL (0.11-0.59) H 09/05/24 19:47 Eos # (Auto) 0.32 K/uL (0.00-0.50) 09/05/24 19:47 Baso # (Auto) 0.06 K/uL (0.00-0.20) 09/05/24 19:47 Immature Gran # (Auto) 0.08 K/uL (0.01-0.20) 09/05/24 19:47 Sodium 137 mmol/L (136-145) 09/05/24 19:47 Potassium 4.0 mmol/L (3.5-5.1) 09/05/24 19:47 Chloride 100 mmol/L (98-107) 09/05/24 19:47 Carbon Dioxide 28 mmol/L (21-32) 09/05/24 19:47 Anion Gap 9 (3-11) 09/05/24 19:47 BUN 31 mg/dl (6-23) H 09/05/24 19:47 Creatinine 0.75 mg/dl (0.6-1.2) 09/05/24 19:47 Est Cr Clr Drug Dosing 64.6 ml/min 09/05/24 19:47 eGFR 79.93 09/05/24 19:47 BUN/Creatinine Ratio 41.3 (10-20) H 09/05/24 19:47 Glucose 150 mg/dl (70-99(Fasting)) H 09/05/24 19:47 Calcium 9.6 mg/dl (8.6-10.3) 09/05/24 19:47 Magnesium 1.8 mg/dl (1.7-2.4) 09/05/24 19:47 Total Bilirubin 0.3 mg/dl (0.2-1.0) 09/05/24 19:47 AST 14 U/L (13-39) 09/05/24 19:47 ALT 19 U/L (7-52) 09/05/24 19:47 Alkaline Phosphatase 65 U/L (34-104) 09/05/24 19:47 Troponin I High Sens 6.2 pg/ml (0-14) 09/05/24 19:47 Total Protein 7.3 gm/dl (6.0-8.3) 09/05/24 19:47 Albumin 4.1 gm/dl (3.4-5.0) 09/05/24 19:47 Globulin 3.2 gm/dl (2.5-4.0) 09/05/24 19: Albumin/Globulin Ratio 1.3 (0.9-2) 09/05/24 19:47 TSH 0.471 uIu/ml (0.300-4.500) 09/05/24 19:47 Urine Color Yellow 09/05/24 21: Urine Appearance Clear (Clear) 09/05/24 21: Urine pH 5.5 (4.5-7.5) 09/05/24 21: Ur Specific [place] 1.010 (1.000-1.030) 09/05/24 21: Urine Protein Negative (Negative) 09/05/24 21: Urine Glucose (UA) Negative (Negative) 09/05/24 21: Urine Ketones Negative (Negative) 09/05/24 21: Urine Blood Negative (Negative) 09/05/24 21: Urine Nitrite Negative (Negative) 09/05/24 21:33 Urine Bilirubin Negative (Negative) 09/05/24 21: Urine Urobilinogen Negative (Negative) 09/05/24 21: Ur Leukocyte Esterase 2+ (Negative) H 09/05/24 21:33 Urine WBC (Auto) 11-20 /hpf (0-5) H 09/05/24 21:33 Urine RBC (Auto) 0-2 /hpf (0-2) 09/05/24 21:33 U Hyaline Cast (Auto) 0-2 /lpf (0-2) 09/05/24 21:33 U Epithel Cells (Auto) 0-2 /hpf (0-2) 09/05/24 21:33 Urine Bacteria (Auto) None Seen (None Seen) 09/05/24 21:33 Adenovirus (PCR) Not Detected (NotDetected) 09/05/24 21:29 B. pertussis DNA (PCR) Not Detected (NotDetected) 09/05/24 21:29 B.parapertussis DNA PCR Not Detected (NotDetected) 09/05/24 21:29 C. pneumoniae DNA (PCR) Not Detected (NotDetected) 09/05/24 21:29 Coronavirus OC43 (PCR) Not Detected (NotDetected) 09/05/24 21:29 Coronavirus HKU1 (PCR) Not Detected (NotDetected) 09/05/24 21:29 Coronavirus 229E (PCR) Not Detected (NotDetected) 09/05/24 21:29 SARS-CoV-2 (PCR) Not Detected (NotDetected) 09/05/24 21:29 Coronavirus NL63 (PCR) Not Detected (NotDetected) 09/05/24 21:29 Human Metapneumovir PCR Not Detected (NotDetected) 09/05/24 21:29 Influenza Type A (PCR) Not Detected (NotDetected) 09/05/24 21:29 Influenza Type B (PCR) Not Detected (NotDetected) 09/05/24 21:29 M. pneumoniae (PCR) Not Detected (NotDetected) 09/05/24 21:29 Parainfluenza 1 (PCR) Not Detected (NotDetected) 09/05/24 21:29 Parainfluenza 2 (PCR) Not Detected (NotDetected) 09/05/24 21:29 Parainfluenza 3 (PCR) Not Detected (NotDetected) 09/05/24 21:29 Parainfluenza 4 (PCR) Not Detected (NotDetected) 09/05/24 21:29 RSV (PCR) Not Detected (NotDetected) 09/05/24 21:29 Entero/Rhino (PCR) Not Detected (NotDetected) 09/05/24 21:29 Impressions Chest X-Ray 09/05/24 20:10 Exam(s): XR CXR 1 VIEW EXAM: XR Chest, 1 View CLINICAL HISTORY: Reason for exam: Dysrhythmia. TECHNIQUE: Frontal view of the chest. COMPARISON: Prior chest x-ray from July 10, 2017. FINDINGS: Eventration of the right hemidiaphragm. Lungs: Unremarkable. No consolidation. Pleural space: Unremarkable. No pneumothorax. Heart: Unremarkable. No cardiomegaly. Mediastinum: Unremarkable. Normal mediastinal contour. Bones/joints: Unremarkable. No acute fracture. IMPRESSION: No evidence of acute cardiopulmonary process. Electronically signed by: Teresa Salinas MD 09/05/24 22:07 PM ECG Additional Comments: ECG. Sinus rhythm with marked sinus erythremia at the rate of 86. Left axis deviation. No significant change was found. Code Status & VTE Plan VTE Prophylaxis Plan VTE Prophylaxis will be ordered: Yes
[2024-09-05] MEDS: FEXOFENADINE HCL 180 MG TAB PO STA (23:44)
[2024-09-05] MEDS: ACETAMINOPHEN 325 MG TAB PO STA (23:45)
[2024-09-05] MEDS: ACETAMINOPHEN 500 MG TAB PO STA (23:48)
--- NOTE | 2024-09-06 01:45 | Emergency Department Note ---
ED Provider Note CHIEF COMPLAINT: Weakness, possible atrial fibrillation HISTORY OF PRESENT ILLNESS: This 83-year-old female patient with past medical history of CVA, uterine cancer, seasonal allergies, hypertension, hyperlipidemia, obesity presents emergency department with complaints of weakness over the last several days. Patient's brother as well as at the bedside states he was away but came back today and is able to evaluate the patient. He is a retired family medicine physician. He used an Apple Watch and determined that the patient was possibly in atrial fibrillation. 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 He states she wore a Zio patch last year for about 2 weeks with no runs of atrial fibrillation. She is followed by EP cardiology, Dr. Costa, who has recommended an implanted recorder. He was able to catch the rhythm, presenting at the bedside. It does appear to be in atrial fibrillation. Patient states she does not feel any chest pain or palpitations. REVIEW OF SYSTEMS: A review of systems was performed with positives and pertinent negatives listed in the history of present illness. 10 systems were reviewed and are otherwise negative. ALLERGIES: see below MEDICATIONS: see below PMH: see below SOCIAL HISTORY: see below DDx: Atrial fibrillation, paroxysmal, electrolyte abnormality, infectious etiology, cardiac ischemia among others. PHYSICAL EXAM: Vital signs reviewed. General: Well-appearing 83-year-old female, in no significant distress. HEENT: No scleral icterus, PERRLA, neck supple. moist mucous membranes Cardiovascular: Regular rate and rhythm, systolic ejection murmur Pulmonary: Clear to auscultation bilaterally, normal work of breathing. Abdomen: Soft, obese, nontender, nondistended, positive bowel sounds. Musculoskeletal: Atraumatic, minimal peripheral edema. Neurologic: Patient awake alert and oriented x 3, speech is clear Skin: Warm, dry, no rash EMERGENCY DEPARTMENT COURSE/MDM: [] MONITORING: An order for cardiac monitoring was placed and the patient is noted to be in a normal sinus rhythm at 80 beats per minute. RADIOLOGY: CXR to my interpretation reveals no evidence of acute Focal lung consolidation or failure. EK my interpretation reveals a sinus rhythm with marked sinus arrhythmia, left axis deviation. Overall low voltage. QTc of 414. DISPOSITION: hospitalist referral Past Med/Surg History Problem List Weakness Acute CVA (cerebrovascular accident) (Acute) Medical History Left hand weakness Gouty arthritis Dyslipidemia DM (diabetes mellitus), type 2 Rhinitis Hypertension Gout Surgical History H/O cataract removal with insertion of prosthetic lens H/O total hysterectomy History of tonsillectomy Family History Other Diabetes Stroke Social History Smoking Status: Former smoker Hx Alcohol Use: No Hx Substance Use: No Preferred Language: Malay Feels Safe at Home: Yes Allergies Allergies Allergy/AdvReac Type Severity Reaction Status Date / Time adhesive Allergy Severe REDNESS, Verified 09/05/24 20:21 BLISTERS, SKIN TEARS OFF Iodinated Contrast Media Allergy Severe ANAPHYLAXIS Verified 09/05/24 20:21 aspirin Allergy Intermediate RASH Verified 09/05/24 20:21 grass pollen-perennial rye, Allergy Intermediate SNEEZING, Verified 09/05/24 20:21 standar CONGESTION iodine Allergy Intermediate TOPICAL Verified 09/05/24 20:21 (BETADINE)- WELTS mold Allergy Intermediate SNEEZING, Verified 09/05/24 20:21 CONGESTION pollen extracts Allergy Intermediate SNEEZING, Verified 09/05/24 20:21 CONGESTION Sulfa (Sulfonamide Allergy Intermediate RASH PER Verified 09/05/24 20:21 Antibiotics) [facility] Egg Derived Allergy Unknown POSITIVE Verified 09/05/24 20:21 ALLERGY TEST allopurinol AdvReac Intermediate NAUSEA/VOMI Verified 09/05/24 20:21 TING colchicine AdvReac Intermediate Diarrhea Verified 09/05/24 20:21 oxycodone AdvReac Intermediate GI UPSET Verified 09/05/24 20:21 amlodipine AdvReac Mild Flushing Verified 09/05/24 20:21 Home Meds Home Medications Medication Instructions Recorded Confirmed azelastine 137 mcg (0.1 %) nasal 2 spray intranasal BID 03/02/22 09/05/24 spray cholecalciferol (vitamin D3) 25 25 mcg PO QPM 03/02/22 09/05/24 mcg (1,000 unit) tablet (Vitamin D3) lisinopril 20 1 tab PO BID 03/02/22 09/05/24 mg-hydrochlorothiazide 12.5 mg tablet acetaminophen 650 mg 1,300 mg PO Q8H 12/26/23 09/05/24 tablet,extended release (Tylenol 8 Hour) fexofenadine 180 mg tablet 180 mg PO HS 12/26/23 09/05/24 ketotifen fumarate 0.025 % (0.035 1 drp ophthalmic (eye) BID PRN 12/26/23 09/05/24 %) eye drops (Zaditor) ITCHY EYES xenzqchinkkh-pjqjvwmo-gpdvjt tablet 1 tab PO DAILY 12/26/23 09/05/24 propylene glycol 0.6 % eye drops 1 drp ophthalmic (eye) BID 12/26/23 09/05/24 sodium chloride 0.65 % nasal spray 1 spray intranasal BID 12/26/23 09/05/24 aerosol ([place] Saline) coenzyme Q10 200 mg capsule (Co 200 mg PO QPM 09/05/24 09/05/24 Q-10) rosuvastatin 20 mg tablet 20 mg PO QPM 09/05/24 09/05/24 Previous Rx's Medication Instructions Recorded clopidogrel 75 mg tablet 75 mg PO QAM #60 tabs 12/27/23 Results & Data (ED) Vital Signs Vital Signs - 24 hr 09/05/24 19:22 09/05/24 19:26 09/05/24 19:50 Temperature 36.4 C L Temperature Source Temporal Artery Scan Pulse Rate 81 74 Pulse Rate [Right Finger] Pulse Rate from SpO2 Sensor Pulse Rhythm Regular Pulse Rhythm [Right Finger] Pulse Strength Normal Pulse Strength [Right Finger] Respiratory Rate 18 Respiratory Effort / Characteristics Non-Labored Spontaneous Respiratory Depth Normal Respiratory Pattern Regular Blood Pressure 180/83 H Blood Pressure [Right Arm] Blood Pressure Mean 115 Blood Pressure Mean [Right Arm] Blood Pressure Position Sitting Blood Pressure Position [Right Arm] Pulse Oximetry 95 94 Oxygen Delivery Method Room Air Room Air Sepsis Recent Fever Within 48 Hours No Sepsis New/Unexplained Change in Mental Status N/A Sepsis Action Taken by Nursing No Action Required 09/05/24 19:52 09/05/24 20:00 09/05/24 20:30 Temperature Temperature Source Pulse Rate 74 78 Pulse Rate [Right Finger] 75 Pulse Rate from SpO2 Sensor 69 Pulse Rhythm Pulse Rhythm [Right Finger] Regular Pulse Strength Pulse Strength [Right Finger] Normal Respiratory Rate 18 20 19 Respiratory Effort / Characteristics Non-Labored Respiratory Depth Normal Respiratory Pattern Regular Blood Pressure 133/67 105/52 L Blood Pressure [Right Arm] 138/66 Blood Pressure Mean 105 69 Blood Pressure Mean [Right Arm] 90 Blood Pressure Position Blood Pressure Position [Right Arm] Lying Pulse Oximetry 96 92 95 Oxygen Delivery Method Room Air Room Air Room Air Sepsis Recent Fever Within 48 Hours Sepsis New/Unexplained Change in Mental Status Sepsis Action Taken by Nursing 09/05/24 20:56 09/05/24 21:00 09/05/24 21:30 Temperature Temperature Source Pulse Rate 69 69 74 Pulse Rate [Right Finger] Pulse Rate from SpO2 Sensor Pulse Rhythm Pulse Rhythm [Right Finger] Pulse Strength Pulse Strength [Right Finger] Respiratory Rate 22 18 20 Respiratory Effort / Characteristics Respiratory Depth Respiratory Pattern Blood Pressure 124/64 144/61 H 140/65 Blood Pressure [Right Arm] Blood Pressure Mean 107 87 90 Blood Pressure Mean [Right Arm] Blood Pressure Position Blood Pressure Position [Right Arm] Pulse Oximetry 95 94 96 Oxygen Delivery Method Room Air Room Air Room Air Sepsis Recent Fever Within 48 Hours Sepsis New/Unexplained Change in Mental Status Sepsis Action Taken by Nursing 09/05/24 22:00 09/05/24 22:00 09/05/24 22:30 Temperature Temperature Source Pulse Rate 71 68 Pulse Rate [Right Finger] 70 Pulse Rate from SpO2 Sensor 66 Pulse Rhythm Pulse Rhythm [Right Finger] Regular Pulse Strength Pulse Strength [Right Finger] Respiratory Rate 15 21 19 Respiratory Effort / Characteristics Non-Labored Spontaneous Respiratory Depth Normal Respiratory Pattern Regular Blood Pressure 157/63 H 144/53 H Blood Pressure [Right Arm] 157/63 H Blood Pressure Mean 92 83 Blood Pressure Mean [Right Arm] 94 Blood Pressure Position Blood Pressure Position [Right Arm] Pulse Oximetry 94 94 96 Oxygen Delivery Method Room Air Room Air Room Air Sepsis Recent Fever Within 48 Hours Sepsis New/Unexplained Change in Mental Status Sepsis Action Taken by Nursing 09/05/24 23:40 Temperature Temperature Source Pulse Rate 80 Pulse Rate [Right Finger] Pulse Rate from SpO2 Sensor Pulse Rhythm Pulse Rhythm [Right Finger] Pulse Strength Pulse Strength [Right Finger] Respiratory Rate Respiratory Effort / Characteristics Respiratory Depth Respiratory Pattern Blood Pressure Blood Pressure [Right Arm] Blood Pressure Mean Blood Pressure Mean [Right Arm] Blood Pressure Position Blood Pressure Position [Right Arm] Pulse Oximetry Oxygen Delivery Method Sepsis Recent Fever Within 48 Hours Sepsis New/Unexplained Change in Mental Status Sepsis Action Taken by Care Home Medications Current Medication List: was personally reviewed by me Laboratory Data Attestation: I reviewed the patient's lab results. 09/05/24 19:47 09/05/24 19:47 Lab Results 09/05/24 09/05/24 09/05/24 Range/Units 19:47 21:29 21:33 WBC 16.52 H (4.8-10.8) K/ul RBC 4.29 (4.20-5.40) M/uL Hgb 12.3 (12.0-16.0) g/dl Hct 38.4 (37.0-47.0) % MCV 89.5 (80.0-100.0) fL MCH 28.7 (25.0-34.0) pg MCHC 32.0 (32.0-36.0) g/dL RDW Std Deviation 45.0 (36.4-46.3) fL RDW Coeff of [place] 13.8 (11.5-14.5) % Plt Count 417 H (130-400) K/uL MPV 9.2 L (9.4-12.4) fL Immature Gran % (Auto) 0.5 % Neut % (Auto) 71.8 % Lymph % (Auto) 16.4 % [place] % (Auto) 9.0 % Eos % (Auto) 1.9 % Baso % (Auto) 0.4 % Neut # (Auto) 11.86 H (1.40-6.50) K/uL Lymph # (Auto) 2.71 (1.20-3.40) K/uL [place] # (Auto) 1.49 H (0.11-0.59) K/uL Eos # (Auto) 0.32 (0.00-0.50) K/uL Baso # (Auto) 0.06 (0.00-0.20) K/uL Immature Gran # (Auto) 0.08 (0.01-0.20) K/uL Sodium 137 (136-145) mmol/L Potassium 4.0 (3.5-5.1) mmol/L Chloride 100 (98-107) mmol/L Carbon Dioxide 28 (21-32) mmol/L Anion Gap 9 (3-11) BUN 31 H (6-23) mg/dl Creatinine 0.75 (0.6-1.2) mg/dl Est Cr Clr Drug Dosing 64.6 ml/min eGFR 79.93 BUN/Creatinine Ratio 41.3 H (10-20) Glucose 150 H (70-99(Fasting)) mg/dl Calcium 9.6 (8.6-10.3) mg/dl Magnesium 1.8 (1.7-2.4) mg/dl Total Bilirubin 0.3 (0.2-1.0) mg/dl AST 14 (13-39) U/L ALT 19 (7-52) U/L Alkaline Phosphatase 65 (34-104) U/L Troponin I High Sens 6.2 (0-14) pg/ml Total Protein 7.3 (6.0-8.3) gm/dl Albumin 4.1 (3.4-5.0) gm/dl Globulin 3.2 (2.5-4.0) gm/dl Albumin/Globulin Ratio 1.3 (0.9-2) TSH 0.471 (0.300-4.500) uIu/ml Urine Color Yellow Urine Appearance Clear (Clear) Urine pH 5.5 (4.5-7.5) Ur Specific [place] 1.010 (1.000-1.030) Urine Protein Negative (Negative) Urine Glucose (UA) Negative (Negative) Urine Ketones Negative (Negative) Urine Blood Negative (Negative) Urine Nitrite Negative (Negative) Urine Bilirubin Negative (Negative) Urine Urobilinogen Negative (Negative) Ur Leukocyte Esterase 2+ H (Negative) Urine WBC (Auto) 11-20 H (0-5) /hpf Urine RBC (Auto) 0-2 (0-2) /hpf U Hyaline Cast (Auto) 0-2 (0-2) /lpf U Epithel Cells (Auto) 0-2 (0-2) /hpf Urine Bacteria (Auto) None Seen (None Seen) Adenovirus (PCR) Not Detected (NotDetected) B. pertussis DNA (PCR) Not Detected (NotDetected) B.parapertussis DNA PCR Not Detected (NotDetected) C. pneumoniae DNA (PCR) Not Detected (NotDetected) Coronavirus OC43 (PCR) Not Detected (NotDetected) Coronavirus HKU1 (PCR) Not Detected (NotDetected) Coronavirus 229E (PCR) Not Detected (NotDetected) SARS-CoV-2 (PCR) Not Detected (NotDetected) Coronavirus NL63 (PCR) Not Detected (NotDetected) Human Metapneumovir PCR Not Detected (NotDetected) Influenza Type A (PCR) Not Detected (NotDetected) Influenza Type B (PCR) Not Detected (NotDetected) M. pneumoniae (PCR) Not Detected (NotDetected) Parainfluenza 1 (PCR) Not Detected (NotDetected) Parainfluenza 2 (PCR) Not Detected (NotDetected) Parainfluenza 3 (PCR) Not Detected (NotDetected) Parainfluenza 4 (PCR) Not Detected (NotDetected) RSV (PCR) Not Detected (NotDetected) Entero/Rhino (PCR) Not Detected (NotDetected) Administered Medications Discontinued Medications Acetaminophen (Acetaminophen 500 Mg Tab) 1,000 mg PO NOW STA Stop: 09/05/24 23:27 Last Admin: 09/05/24 23:48 Dose: Not Given Documented By: GENESIS Acetaminophen (Acetaminophen 325 Mg Tab) 1,300 mg PO NOW STA Stop: 09/05/24 23:42 Last Admin: 09/05/24 23:45 Dose: 1,300 mg Documented By: GENESIS Fexofenadine HCl (Fexofenadine Hcl 180 Mg Tab) 180 mg PO NOW STA Stop: 09/05/24 23:28 Last Admin: 09/05/24 23:44 Dose: 180 mg Documented By: GENESIS Lisinopril/HCTZ (Lisinopril/Hctz 20/12.5mg 1 Tab Tab) 1 tab PO NOW STA Stop: 09/05/24 21:41 Last Admin: 09/05/24 22:19 Dose: 1 tab Documented By: DHARMESH Sodium Chloride (Nss) 500 mls @ 999 mls/hr IV .Q31M ONE Stop: 09/05/24 21:13 Last Infusion: 09/05/24 21:30 Dose: Infused Documented By: Admin: 09/05/24 20:56 Dose: 999 mls/hr Documented By: JAMAICA Rosuvastatin Calcium (Rosuvastatin Calcium 20 Mg Tab) 20 mg PO NOW STA Stop: 09/05/24 21:41 Last Admin: 09/05/24 22:19 Dose: 20 mg Documented By: KLS Imaging Data Radiologist's Impression: Chest X-Ray 09/05/24 20:10 Exam(s): XR CXR 1 VIEW EXAM: XR Chest, 1 View CLINICAL HISTORY: Reason for exam: Dysrhythmia. TECHNIQUE: Frontal view of the chest. COMPARISON: Prior chest x-ray from July 10, 2017. FINDINGS: Eventration of the right hemidiaphragm. Lungs: Unremarkable. No consolidation. Pleural space: Unremarkable. No pneumothorax. Heart: Unremarkable. No cardiomegaly. Mediastinum: Unremarkable. Normal mediastinal contour. Bones/joints: Unremarkable. No acute fracture. IMPRESSION: No evidence of acute cardiopulmonary process. Electronically signed by: Teresa Salinas MD 09/05/24 22:07 PM Discharge Plan Visit Data Chief Complaint: Cardiac Assessment Stated Complaint: NEW A FIB ED Provider: Dalia Meehan Forms Stand Alone Forms: My [facility] [employer] Prescriptions Prescriptions: No Action lisinopril-hydrochlorothiazide 20-12.5 mg tablet 1 tab PO BID azelastine 137 mcg (0.1 %) aerosol,spray 2 spray INTRANASAL BID cholecalciferol (vitamin D3) [Vitamin D3] 25 mcg (1,000 unit) Tablet 25 mcg PO QPM fexofenadine 180 mg Tablet 180 mg PO HS propylene glycol 0.6 % Drops 1 drp OPHTHALMIC (EYE) BID Rx Instructions: PRN ALSO ketotifen fumarate [Zaditor] 0.025 % (0.035 %) Drops 1 drp OPHTHALMIC (EYE) BID PRN (Reason: ITCHY EYES) Rx Instructions: administer at least 8 hours apart acetaminophen [Tylenol 8 Hour] 650 mg Tablet Extended Release 1,300 mg PO Q8H Rx Instructions: TAKES 0800, 1600, & 2359 [id number] Tablet 1 tab PO DAILY [place] Saline 0.65 % Aerosol,[place] 1 spray INTRANASAL BID Rx Instructions: AND PRN clopidogrel 75 mg Tablet 75 mg PO QAM Qty: 60 0RF rosuvastatin 20 mg tablet 20 mg PO QPM coenzyme Q10 [Co Q-10] 200 mg Capsule 200 mg PO QPM Referrals Referrals: Alejandro Simmons DO [Primary Care Provider] -
[2024-09-06] MEDS ORDERED: GLUCOSE 10 TAB/TUBE PO PRN (03:12)
[2024-09-06] MEDS ORDERED: ACETAMINOPHEN 325 MG TAB PO PRN (03:12)
[2024-09-06] MEDS ORDERED: DEXTROSE 50% 50 ML SYRINGE IV PRN (03:12)
[2024-09-06] MEDS ORDERED: POLYETHYLENE (MIRALAX) 17 GM PACK PO PRN (03:12)
[2024-09-06] MEDS ORDERED: NITROGLYCERIN SL 0.4 MG/TAB TAB SL PRN (03:12)
[2024-09-06] MEDS ORDERED: GLUCAGON FOR INJ 1 MG VIAL SQ PRN (03:12)
[2024-09-06] MEDS ORDERED: GLUCOSE 40% GEL 15 GM TUBE PO PRN (03:12)
[2024-09-06] MEDS ORDERED: CARBOHYDRATES FOR HYPOGLYCEMIA PO PRN (03:12)
[2024-09-06] MEDS ORDERED: Nursing to Pharmacy Communication SCH (04:15)
--- OUTSIDE RECORDS SUMMARY | 2024-09-06 04:44 | External Medical Summary | Summary of Care ---
Author Name Unknown Organization [facility] Address [address] [place] [address] Phone [phone] Care Team Providers Care Flat Spring Assembler Name Role Phone Alejandro Simmons Primary Care Provider Reason for Visit * Reason Onset Date Comments Referral 06/15/2024 Encounter Details Date Type Department Care Team (Late st Contact Info) Description 06/15/2024 New Patient Triage (EDUCATIONAL TECHNICIAN USE ONLY) Cardiology, [address] [phone] Maddy Mathews CRNP [address] [place] [address] Referral Allergies Active Allergy Reactions Criticality Noted Date Comments Adhesive Tape 12/21/2015 Blister Allopurinol Nausea/vomiting 10/24/2022 Amlodipine Flushing 08/25/2017 Aspirin Rash 02/28/2014 Povidone Iodine 12/21/2015 Colchicine 08/28/2021 Loose stools Egg-Derived Products Other (Please comment) 06/23/2011 No reaction; positive skin test in past/ Environmental 09/29/2000 Grass/molds Iodinated Contrast Media Anaphylaxis High 12/21/2015 Sulfa Antibiotics Rash 02/26/2000 documented as of this encounter (statuses as of 06/19/2024) Medications CENTRUM SILVER PO TABS 1 TABLET DAILY Activ e ZADITOR 0.025 % OP SOLNIndications: Allergic rhinitis Instill into eye. 2 Active NASAL SALINE 0.65 % NA SOLNIndications: Rhinitis, nonallergic flush each nostril morning and night and every 2-4 hrs as needed for nasal dryness or congestion 1 Bottle 5 2 Active Vitamin D, Cholecalciferol, 1000 UNITS CAPSIndications: in evening Take 1 Capsule by mouth in the morning. Active Propylene Glycol 0.6 % Ophthalmic Solution Instill 1 Drop into eye in the morning and 1 Drop in the evening. Active Fexofenadine HCl 180 MG Oral Tablet (Devi)Indicat ions:takes in evening Take by mouth 1 Tablet in the morning. 90 Tablet 3 2 Active Additional Information Patient taking differently:180 mg OralHS, Indications: takes in evening, Reported on 01/31/2023 Acetaminophen ER 650 MG Oral Tablet Extended Release Take 2 Tablets by mouth in the morning and 2 Tablets at noon and 2 Tablets in the evening. Active Ondansetron HCl 4 MG Oral Tablet (Zofran) Take 1 Tablet by mouth every 8 hours as needed for Nausea. Active Clopidogrel Bisulfate 75 MG Oral Tablet (pLAVix)Indicati ons:Chronic ischemic right MCA stroke Take 1 Tablet by mouth in the morning. 90 Tablet 3 4 Active Lisinopril-hydro CHLOROthiazide 20-12.5 MG Oral Tablet TAKE 1 TABLET BY MOUTH TWO TIMES DAILY 180 Tablet 2 4 Active Azelastine HCl 0.1 % Nasal Solution (Astelin)Indicat ions:Rhinitis, nonallergic SPRAY 2 SPRAYS INTO EACH NOSTRIL TWO TIMES DAILY 90 mL 3 4 Active Rosuvastatin Calcium 20 MG Oral Tablet (Crestor)Indicat ions:Cerebrovasc ular accident (CVA), unspecified mechanism (HCC),Dyslipidem ia Take 1 Tablet by mouth in the morning. 90 Tablet 3 4 Active predniSONE 20 MG Oral Tablet (Deltasone)Indic ations:Gouty arthritis Take 40 mg by mouth for 3-5 days as directed by physician as needed for joint pain. Repeat as needed. 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 Senile osteoporosis 03/25/2021 Vitamin D deficiency 08/31/2014 Diverticulosis of colon 08/27/2004 Dyslipidemia 06/24/2001 HTN, goal below 130/80 History of uterine cancer documented as of this encounter (statuses as of 06/19/2024) Resolved Problems Problem Noted Date Diagnosed Date [...] as of this encounter (statuses as of 06/19/2024) Immunizations Name Administration Dates Next Due COVID-19 mRNA, LNP-s, No Pre serve, 2-Dose Series (Moderna) 11/19/2023,08/13/2020,07/10/2020 COVID-19, MRNA-LNP, PF, 50 M CG/0.5 mL, 12 YRS AND ABOVE, IM (MODERNA-Spikevax) 04/08/2024,11/19/2023,03/23/2023 COVID-19, mRNA, LNP-s, PF, B ooster, 100mcg/0.5mg (Moderna) 09/25/2021,04/04/2021 Covid-19, Mrna, Lnp-s, Pf, B ivalent, 50 Mcg, IM, 12 yrs and above (Moderna) 10/31/2022,03/13/2022 Pneumococcal Conjugate Vacc, 13 Valent (Prevnar) 06/26/2016 Pneumococcal Polysaccharide PPV23 (Pneumovax) 07/16/2018 Seasonal Influenza, MDCK, Tr ivalent, PF, (Flucelvax) 03/29/2024 TD, Preservative Free 06/18/2010 TDAP (age 10 [...] Date Recorded PHQ Adult Total Score 0 10/05/2023 Hunger Vital Sign Answer Date Recorded Within the past 12 months, y ou worried that your food would run out before you got the money to buy more. Never true 09/21/19 24 Ran Out of Food in the Last Year Not on file 09/21/2023 Childcare Answer Date Recorded Do you feel overwhelmed with taking care of a child, family member or friend? No 09/21/2023 Does your family need help f inding childcare? (Household - for ages 0-17 years) Not on file 09/21/2023 Clothing Answer Date Recorded Have you been unable to get clothing when it was really needed? No 09/21/2023 Is your family able to get c lothes or diapers when needed? (Household - for ages 0-17 years) Not on file 09/21/2023 Personal Safety Answer Date Recorded Do you feel unsafe or have concerns for your saf ety? No 09/21/2023 Do you have concerns for you r family's safety? (Household - for ages 0-17 years) Not on file 09/21/2023 Utilities Answer Date Recorded Do you have trouble paying y our heating, water, or electric bill? No 09/21/2023 Is your family able to pay t he heat, water, or electric bill? (Household - for ages 0-17 years) Not on file 09/21/2023 Does your family have access to good internet? (Household - for ages 0-17 years) Not on file 09/21/2023 Employment Status Answer Date Recorded Are you unemployed or without regular income? No 09/21/2023 Does the household have a re gular source of income? (Household - for ages 0-17 years) Not on file 09/21/2023 Social Connections Answer Date Recorded How often do you feel lonely or isolated from th ose around you? Rarely 09/21/2023 Financial Resource Strain Answer Date R ecorded Do you have any trouble payi ng for your medications, or do you think you might in the future? No 09/21/2023 Does your family have troubl e paying for medicine? (Household - for ages 0-17 years) Not on file 09/21/2023 Transportation Needs Answer Date Record ed READ ONLY Do you have troubl e getting a ride to medical visits or work? Never True 09/21/2023 Does your family have a hard time getting a ride to doctors visits? (Household - for ages 0-17 years) Not on file 09/21/2023 Has lack of transportation k ept you from medical appointments, meetings, work, or from getting things needed for daily living? Check all that apply. (Adult - for ages 18 years and over) Not on file 09/21/2023 Do you (or your family) have trouble finding or paying for a ride (transportation)? (Household - for ages 0-17 years) Not on file 09/21/2023 Housing Stability Answer Date Recorded Do you currently live in a s helter or have no steady place to sleep at night? No 09/21/2023 READ ONLY Do you think you a re at risk of becoming homeless? No 09/21/2023 Does your family worry about paying for your home or becoming homeless? (Household - for ages 0-17 years) Not on file 0 09/21/2023 Are you homeless or worried that you might be in the future? (Adult - for ages 18 years and over) Not on file Are you (or your family) shelia eless or worried that you might be in the future? (Household - for ages 0-17 years) Not on file Food Insecurity Answer Date Recorded Do you need food for this week? No 09/21/2023 Are you able to get enough f ood for your family? (Household - for ages 0-17 years) Not on file 09/21/2023 Does your family need food t his week? (Household - for ages 0-17 years) Not on file 09/21/2023 Do you always have enough fo od for your family? (Household - for ages 0-17 years) Not on file 09/21/2023 Comments No Sex and Gender Information Value Date Recorded Sex Assigned at Female 01/16/2020 2:52 PM EDT Legal Sex Female 7:16 AM EST Gender Identity Female 01/16/2020 2:52 PM EDT Sexual Orientation Straight 01/16/2020 2: 52 PM EDT documented as of this encounter Progress Notes * Lily Mcknight CRNP - 06/19/2024 7:42 AM EST Does patient need to be seen?: Yes Modality: Office visit Urgency: Within 30 days (routine) Discussed care plan with patient or proxy?: Yes MyG Communicated with patient on Date (mm/dd/yyyy): 06/824 at Time ([facility]): [id number] 83 year old female referred by neurology s/t recent embolic stroke, and recent SVT on protracted cardiac monitoring. The remainder of patient's stroke workup has been negative and so neurology would like patient see by Dr. Costa () for consideration of placement of a LOOP RECORDER. EKG ZIO Both on Chart. I would suspect that an Echo was completed at [facility], not seen in our records at this time, will needto access [place] system. Appropriate referral. Thank you, YANELY Crooks [facility]iology [facility] * Digna Earl LPN - 06/15/2024 10:10 AM EST Images from the original note were not included. 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 Referral for evaluation of zio results and consideration of ILR placement Discussed care plan with patient or proxy?: Yes pt via myg msg Communicated with patient on Date (mm/dd/yyyy): 06/15/24 at Time ([facility]): [id number] APPOINTMENT INFO: 08/25/24 Dr Costa INFO FROM CARDIAC REFERRAL Referred by neurologyGriffin Martell Pt was in pt at [facility] in December 2023: EKG/ECHO/ZIO/CARDIAC TESTING Last EKG in [facility] 2017: ZIO 01/01/24: REASON FOR STUDY: cva CONCLUSIONS: Preliminary Findings Prepared by Kaylynn Holden, CCT 01/18/24 Duration: 13 days, 2 hours Final Interpretation Patient had a min HR of 44 bpm, max HR of 179 bpm, and avg HR of 65 bpm. Predominant underlying rhythm was Sinus Rhythm. 36 Supraventricular Tachycardia runs occurred, the run with the fastest interval lasting 4 beats with a max rate of 179 bpm, the longest lasting 15.4 secs with an avg rate of 112 bpm. Isolated SVEs were occasional (3.0%, 31175), SVE Couplets were rare (<1.0%, 639), and SVE Triplets were rare (<1.0%, 149). Isolated VEs were rare (<1.0%, 3577), VE Couplets were rare (<1.0%, 3), and VE Triplets were rare (<1.0%, 1). Ventricular Bigeminy and Trigeminy were present. No patient triggered events were submitted. No symptoms were reported. No definite atrial fibrillation or atrial flutter episodes were observed. LABS Results for orders placed or performed in visit on 03/29/24 ALBUMIN / CREATININE RATIO, URINE Result Value Ref Range Albumin, Random Urine <1.20 mg/dL Creatinine, Random Urine 48 mg/dL Albumin / Creatinine Ratio, Urine <25 <30 mg/g Creat Component Latest Ref Rng 03/21/2024 BUN 6 - 20 mg/dL 28 (H) CREATININE 0.5 - 1.0 mg/dL 0.8 EGFR >=60 mL/min 71 SODIUM 135 - 146 mmol/L 138 POTASSIUM 3.5 - 5.1 mmol/L 4.4 CHLORIDE 98 - 107 mmol/L 98 CO2 22 - 32 mmol/L 23 ANION GAP 7 - 15 mmol/L 17 (H) GLUCOSE 70 - 120 mg/dL 105 Albumin 3.8 - 5.0 g/dL 4.3 AST 10 - 35 U/L 18 Alkaline Phosphatase 35 - 130 U/L 79 Bilirubin, Total <=1.2 mg/dL 0.5 CALCIUM 8.4 - 10.2 mg/dL 10.2 Protein 6.0 - 8.3 g/dL 7.0 ALT 10 - 35 U/L 18 WBC 4.00 - 10.80 K/uL 14.79 (H) Neutrophils % 40.0 - 75.0 % 72.2 Lymphocytes % 18.0 - 42.0 % 17.5 (L) Monocytes % 1.0 - 11.0 % 8.5 Eosinophils % 0.0 - 6.0 % 1.6 Basophils % 0.0 - 2.0 % 0.2 Absolute Neutrophils 1.80 - 7.70 K/uL 10.68 (H) Absolute Lymphocytes 1.00 - 4.80 K/ul 2.59 Absolute Monocytes 0.00 - 1.10 K/uL 1.26 (H) Absolute Eosinophils 0.00 - 0.70 K/uL 0.23 Absolute Basophils 0.00 - 0.20 K/uL 0.03 WBC 4.00 - 10.80 K/uL 14.79 (H) RBC 3.85 - 5.15 M/uL 4.39 HGB 12.0 - 15.3 g/dL 13.0 HCT 36.0 - 45.2 % 40.4 MCV 81.5 - 97.5 fL 92.0 MCH 27.0 - 34.0 pg 29.6 MCHC 32.0 - 36.0 g/dL 32.2 RDW 11.5 - 15.5 % 12.7 PLT 140 - 400 K/uL 366 MPV 6.6 - 11.1 fL 9.4 Triglycerides <=174 mg/dL 155 Cholesterol <200 mg/dL 126 HDL Cholesterol >49 mg/dL 51 Non-HDL Cholesterol <=159 mg/dL 75 Hemoglobin A1C 4.0 - 5.6 % 6.3 (H) Estimated Average Glucose <126 mg/dL 134 (H) 25-Hydroxy Vitamin D >19 ng/mL 35 Uric Acid 2.4 - 5.7 mg/dL 9.5 (H) LDL Cholesterol (Direct Measure) <=129 mg/dL 41 MEDICATIONS Current Outpatient Medications Medication Sig Dispense Refill [...] noon and 2 Tablets in the evening. Ondansetron HCl 4 MG Oral Tablet (Zofran) Take 1 Tablet by mouth every 8 hours as needed for Nausea. Clopidogrel Bisulfate 75 MG Oral Tablet (pLAVix) Take 1 Tablet by mouth in the morning. 90 Tablet 3 Lisinopril-hydroCHLOROthiazide 20-12.5 MG Oral Tablet TAKE 1 TABLET BY MOUTH TWO TIMES DAILY 180 Tablet 2 Azelastine HCl 0.1 % Nasal Solution (Astelin) SPRAY 2 SPRAYS INTO EACH NOSTRIL TWO TIMES DAILY 90 mL 3 Rosuvastatin Calcium 20 MG Oral Tablet (Crestor) Take 1 Tablet by mouth in the morning. 90 Tablet 3 predniSONE 20 MG Oral Tablet (Deltasone) Take 40 mg by mouth for 3-5 days as directed by physician as needed for joint pain. Repeat as needed. 30 Tablet 5 No current facility-administered medications for this visit. documented in this encounter Plan of Treatment Upcoming Encounters Date Type Department Care Team (Late st Contact Info) Description 07/13/2024 1:40 PM EST Office Visit Rheumatology [facility] [address] [place] [phone] Akshat Portillo MD [address] [facility] [address] [place] [address] 08/25/2024 2:15 PM EDT Office Visit Cardiology, [place] [address] [place] [address] Mónica Costa, DO [address] [place] [address] 10/06/2024 3:40 PM EDT Office Visit Family Practice [facility] [address] [place] [address] Alejandro Simmons, DO [address] [place] [address] Scheduled Procedures Name Priority Associated Diagnoses Date/Ti me COLONOSCOPY FLEXIBLE PROXIMAL DIAGNOSTIC Recall History of colon polyps Health Maintenance Due Date Last Done Comments Diabetic Foot Exam 1960 Adult Wellness Visit 2008 *BISPHONATE OR OTHER ACCEPTABLE MEDICATION NEEDED FOR OSTEOPOROSIS (REFER TO SMARTSET #1146) 08/30/2021 HbA1c 09/19/2024 03/21/2024, 09/07, 10/16/2022, Additional history exists Depression Screening 10/04/2024 10/05/2023 Diabetic Eye Exam 11/29/2024 11/30/2023, , 03/03/2022, Additional history exists GFR 03/21/2025 03/21/2024, 09/07, 10/16/2022, Additional history exists Albumin/Creatinine Ratio 03/29/2025 024, 10/01/2023, 10/24/2022, Additional history exists DTap/Tdap Vaccines (2 - Td or Tdap) 06/18/2025 06/18/2015, 06/18/2010, 01/27/1996 DXA Scan Discontinued 09/14/2017, 12/2014, 05/10/2012, Additional history exists Colonoscopy Discontinued 11/24/2017, 11/06, 11/16/2014, Additional history exists RETIRED - COLONOSCOPY-EVERY 5 YRS AGES 18-100 Discontinued 11/24/2017, 11/24/2017, 11/16/2014, Additional history exists Pneumococcal Vaccine: 50+ Years Completed 07/16/2018, 06/26/2016 VITAMIN D LEVEL ONCE IN A LIFETIME-USE SMARTSET# [id number] Completed 03/21/2024, 10/01/2023, 08/04/2022, Additional history exists Influenza Vaccine (FLU shot) Completed 03/29/2024 COVID-19 Vaccine Completed 04/08/2024, , 11/19/2023, Additional history exists HPV (Gardasil) Vaccine Aged Out No lo nger eligible based on patient's age to complete this topic Hepatitis B Vaccine Aged Out No longe r eligible based on patient's age to complete this topic MENINGOCOCCAL (MENACTRA/MENVEO) Aged Out No longer eligible based on patient's age to complete this topic Zoster Vaccines Discontinued documented as of this encounter Medical Devices Not on filedocumented as of this encounter Care Teams Flat Spring Assembler Relationship Specialty Start Date End Date Alejandro Simmons DO [address] [place] [address] PCP - General Family Medicine 07/07/19 documented as of this encounter
--- OUTSIDE RECORDS SUMMARY | 2024-09-06 04:44 | External Medical Summary | Summary of Care ---
Author Name Unknown Organization [facility] Address [address] [place] [address] Phone [phone] Care Team Providers Care Roller Shop Supervisor Name Role Phone Alejandro Simmons Primary Care Provider Reason for Visit * Reason Comments Rheum Follow Up Recheck Gouty arthri tis Encounter Details Date Type Department Care Team (Latest Contact Info) Description 07/13/2024 1:40 PM EST Office Visit Rheumatology [facility] [address] [place] [phone] Akshat Portillo MD [address] [facility] [place] [address] Primary osteoarthritis of both hands*; Senile osteoporosis; Gouty arthritis Allergies Active Allergy Reactions Criticality Noted Date Comments Adhesive Tape 12/21/2015 Blister Allopurinol Nausea/vomiting 10/24/2022 Amlodipine Flushing 08/25/2017 Aspirin Rash 02/28/2014 Povidone Iodine 12/21/2015 Colchicine 08/28/2021 Loose stools Egg-Derived Products Other (Please comment) 06/23/2011 No reaction; positive skin test in past/ Environmental 09/29/2000 Grass/molds Iodinated Contrast Media Anaphylaxis High 12/21/2015 Sulfa Antibiotics Rash 02/26/2000 documented as of this encounter (statuses as of 07/14/2024) Medications CENTRUM SILVER PO TABS 1 TABLET DAILY Activ e ZADITOR 0.025 % OP SOLNIndications :Allergic rhinitis Instill into eye. 06/23/19 12 Active NASAL SALINE 0.65 % NA SOLNIndications :Rhinitis, nonallergic flush each nostril morning and night and every 2-4 hrs as needed for nasal dryness or congestion 1 Bottle 5 03/11/20 12 Active Vitamin D, Cholecalciferol , 1000 UNITS CAPSIndications :in evening Take 1 Capsule by mouth in the morning. Active Propylene Glycol 0.6 % Ophthalmic Solution Instill 1 Drop into eye in the morning and 1 Drop in the evening. Active Fexofenadine HCl 180 MG Oral Tablet (Devi)Indica tions:takes in evening Take by mouth 1 Tablet in the morning. 90 Tablet 3 08/29/19 22 Active Additional Information Patient taking differently:180 mg OralHS, Indications: takes in evening, Reported on 07/13/2024 Acetaminophen ER 650 MG Oral Tablet Extended Release Take 2 Tablets by mouth in the morning and 2 Tablets at noon and 2 Tablets in the evening. Active Clopidogrel Bisulfate 75 MG Oral Tablet (pLAVix)Indicat ions:Chronic ischemic right MCA stroke Take 1 Tablet by mouth in the morning. 90 Tablet 3 02/15/20 24 Active Lisinopril-hydr oCHLOROthiazide 20-12.5 MG Oral Tablet TAKE 1 TABLET BY MOUTH TWO TIMES DAILY 180 Tablet 2 03/03/20 24 Active Azelastine HCl 0.1 % Nasal Solution (Astelin)Indica tions:Rhinitis, nonallergic SPRAY 2 SPRAYS INTO EACH NOSTRIL TWO TIMES DAILY 90 mL 3 03/29/20 24 Active Rosuvastatin Calcium 20 MG Oral Tablet (Crestor)Indica tions:Cerebrova scular accident (CVA), unspecified mechanism (HCC),Dyslipide timmy Take 1 Tablet by mouth in the morning. 90 Tablet 3 03/29/20 24 Active predniSONE 20 MG Oral Tablet (Deltasone)Coby cations:Gouty arthritis Take 40 mg by mouth for 3-5 days as directed by physician as needed for joint pain. Repeat as needed. 30 Tablet 5 06/09/19 25 Active Ondansetron HCl 4 MG Oral Tablet (Zofran) Take 1 Tablet by mouth every 8 hours as needed for Nausea. 025 Discontinued documented as of this encounter (statuses as of 07/14/2024) Active Problems Problem Noted Date Diagnosed Date [...] as of this encounter (statuses as of 07/14/2024) Resolved Problems Problem Noted Date Diagnosed Date [...] as of this encounter (statuses as of 07/14/2024) Immunizations Name Administration Dates Next Due COVID-19 [...] No 09/21/2023 Does the household have a [facility] source of income? (Household - for ages [...] ages 0-17 years) Not on file 09/21/2023 Food Insecurity Answer Date Recorded Within the past 12 months, y ou worried that your food would run out before you got the money to buy more. Never true 09/21/19 24 Ran Out of Food in the Last Year Not on file 09/21/2023 Do you need food for this week? No 09/21/2023 Comments No Sex and Gender Information Value Date Recorded Sex Assigned at Female 01/16/2020 2:52 PM EDT Legal Sex Female 7:16 AM EST Gender Identity Female 01/16/2020 2:52 PM EDT Sexual Orientation Straight 01/16/2020 2: 52 PM EDT documented as of this encounter Last Filed Vital Signs Vital Sign Reading Time Taken Comments Blood Pressure - - Pulse - - Temperature 36.4 C (97.5 F) 07/13/2024 1:32 PM ES T Respiratory Rate - - Oxygen Saturation - - Inhaled Oxygen Concentration - - Weight 98 kg (216 lb) 07/13/2024 1:32 PM EST Height - - Body Mass Index 38.88 03/29/2024 1:30 PM EDT documented in this encounter Progress Notes * Akshat Portillo MD - 07/13/2024 1:38 PM EST Subjective: Patient seen today for further follow up evaluation of osteoarthritis, gout. Since the last visit he had a flare up in her right hand and responded to prednisone. This again happened a few weeks ago and used prednisone. She was intolerant to allopurinol. She had a stroke this past summer - had leftarm weakness and has right sided visual impairement and cannot drive anymore. She does not want to go on Uloric. She would rather treat her flares with prednisone. She also has a history of osteoporosis in took Fosamax in the past. It was stopped years ago when she needed dental implants. She has not had a DEXA since 2018. She is not sure about treating osteoporosis anymore either. She does have underlying arthritis of her hands Musculoskeletal ROS: . Abnormal: joint pain . Pain-4 Other ROS: . Constitutional: normal . Head normal . Eyes: change in vision . Ears, nose, throat, mouth: normal . Cardiovascular: normal . Respiratory: normal . Gastrointestinal: normal . Genitourinary: normal . Skin: normal . Neurologic: See above All other ROS reviewed and negative Social History: Social History Tobacco Use Smoking status: Former Current packs/day: 0.00 Average packs/day: 1 pack/day for 30.0 years (30.0 ttl pk-yrs) Types: Cigarettes Start date: 06/08/1962 Quit date: 06/08/1992 Years since quittin.1 Smokeless tobacco: Never Tobacco comments: no passive smoke Substance Use Topics Alcohol use: Yes Comment: occasional Vaping/E-Cigarette Use Vaping/E-Cigarette Use Never User Vaping/E-Cigarette Substances Vaping/E-Cigarette Devices Current Outpatient Medications Medication Sig Dispense Refill CENTRUM SILVER PO TABS 1 TABLET DAILY NASAL SALINE 0.65 % NA SOLN flush [...] noon and 2 Tablets in the evening. Clopidogrel Bisulfate 75 MG Oral Tablet (pLAVix) [...] pain. Repeat as needed. 30 Tablet 5 ZADITOR 0.025 % OP SOLN Instill into eye. (Patient not taking: Reported on 07/13/2024) No current facility-administered medications for this visit. Physical Exam: Temp 36.4 C (97.5 F) (Infrared ) | Wt 98 kg (216 lb) | BMI 38.88 kg/m | BSA 2.08 m General: alert, no distress, and well nourished Neck: supple, no adenopathy, thyroid normal size, non-tender, without nodularity Lymph: no palpable lymphadenopathy Heart: regular rate & rhythm and no gallops Lungs: clear to auscultation , no rales, wheezes or rhonchi Abdomen: abdomen soft, non-tender, and normal bowel sounds Musculoskeletal Exam: Significant osteoarthritis of the hands noted with some swelling noted to the right 3rd and 4th PIP No definite gouty tophi noted Good muscle strength No thoracic kyphosis Assessment: (M19.041, M19.042) Primary osteoarthritis of both hands (primary encounter diagnosis) (M81.0) Senile osteoporosis (M10.9) Gouty arthritis Discussed several things with the patient. She does have significant osteoarthritis of the hands but more bothered by the gout attacks. She had intolerance to allopurinol and does not wish to take Uloric or any other treatment. Will treat her flares with prednisone. Will update her DEXA and depending that results may consider further treatment but again she might not take these medications at this point. Plan: 1. Continue to treat gout flares with steroid tapers 2. Will update DEXA 3. To consider osteoporosis management 4. Return to clinic in 1 year Akshat Portillo MD Department of Rheumatology documented in this encounter Nursing Notes * Ida Ho LPN - 07/13/2024 1:30 PM EST Chief Complaint Patient presents with Rheum Follow Up Recheck Gouty arthritis documented in this encounter Plan of Treatment Upcoming Encounters Date Type Department Care Team (Late st Contact Info) Description 08/25/2024 2:15 PM EDT Office Visit Cardiology, [place] [address] [place] [address] Món[address] Costa, [address] [place] [address] 10/06/2024 3:40 PM EDT Office Visit Family Practice [facility] [address] [place] [address] Alejandro Simmons, DO [address] [place] [address] 01/17/2025 1:30 PM EDT Imaging Radiology [facility] [address] [place] [phone] 07/19/2025 1:40 PM EST Office Visit Rheumatology [facility] [address] [place] [phone] Akshat Portillo MD [address] [place], [place] [address] [address] Scheduled Orders Name Type Priority Associated Diagnoses Orde r Schedule DEXA SCAN/BONE MINERAL AXIAL Medical Imaging Routine Senile osteoporosis Expected: 07/13/2024, Expires: 08/10/2025 Scheduled Procedures Name Priority Associated Diagnoses Date/Ti [...] 06/18/2015, 06/18/2010, 01/27/1996 DXA Scan Discontinued 09/14/2017, 0412/2014, 05/10/2012, Additional history exists Colonoscopy Discontinued 11/24/2017, 11/06, 11/16/2014, Additional history exists RETIRED - COLONOSCOPY-EVERY 5 YRS AGES 18-100 Discontinued 11/24/2017, 11/24/2017, 11/16/2014, Additional history exists Pneumococcal Vaccine: 50+ Years Completed 07/16/2018, 06/26/2016 VITAMIN D LEVEL ONCE IN A LIFETIME-USE SMARTSET# [id number] Completed 03/21/2024, 10/01/2023, 08/04/2022, Additional history exists [...] as of this encounter Visit Diagnoses Diagnosis Primary osteoarthritis of both hands- Primary Senile osteoporosis Gouty arthritis Gouty arthropathy, unspecified documented in this encounter Care Teams Roller Shop Supervisor Relationship Specialty Start Date End Date Alejandro Simmons DO [address] [place] [address] PCP - General Family Medicine 07/07/19 documented as of this encounter"
--- OUTSIDE RECORDS SUMMARY | 2024-09-06 04:44 | External Medical Summary | Summary of Care ---
Author Name Unknown Organization [facility] Address [address] [place] [address] Phone [phone] Care Team Providers Care Game Attendant Name Role Phone Alejandro Simmons Primary Care Provider Encounter Details Date Type Department Care Team (Late st Contact Info) Description 06/30/2024 Population Health External Data Unspecified Department Allergies Active Allergy Reactions Criticality Noted Date Comments Adhesive Tape 12/21/2015 Blister Allopurinol Nausea/vomiting 10/24/2022 Amlodipine Flushing 08/25/2017 Aspirin Rash 02/28/2014 Povidone Iodine 12/21/2015 Colchicine 08/28/2021 Loose stools Egg-Derived Products Other (Please comment) 06/23/2011 No reaction; positive skin test in past/ Environmental 09/29/2000 Grass/molds Iodinated Contrast Media Anaphylaxis High 12/21/2015 Sulfa Antibiotics Rash 02/26/2000 documented as of this encounter (statuses as of 06/30/2024) Medications CENTRUM SILVER PO TABS 1 TABLET [...] as of this encounter (statuses as of 06/30/2024) Active Problems Problem Noted Date Diagnosed Date Cerebrovascular accident (CVA) 01/01/2024 Hospital discharge follow-up 01/01/2024 Left hand weakness 01/01/2024 PVC (premature ventricular contraction) 10/05/19 Diabetes mellitus without complication 3 Osteoarthritis of ankles, bilateral 10/21/2022 Gouty arthritis 03/26/2021 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 Senile osteoporosis 03/25/2021 Vitamin D deficiency 08/31/2014 Diverticulosis of colon 08/27/2004 Dyslipidemia 06/24/2001 HTN, goal below 130/80 History of uterine cancer documented as of this encounter (statuses as of 06/30/2024) Resolved Problems Problem Noted Date Diagnosed Date [...] as of this encounter (statuses as of 06/30/2024) Immunizations Name Administration Dates Next Due COVID-19 [...] PM EDT documented as of this encounter Plan of Treatment Upcoming Encounters Date Type Department Care Team (Late st Contact Info) Description 07/13/2024 1:40 PM EST Office Visit Rheumatology [facility] [address] [phone] [facility]illo [facility] [address] [facility] [address] 08/25/2024 2:15 PM EDT Office Visit Cardiology, [place] [address] [place] [address] Mónica Costa [address] [facility] [place] [address] 10/06/2024 3:40 PM EDT Office Visit Family Practice [facility] [address] [place] [address] Alejandro Simmons, [address] [place] [address] Scheduled Procedures Name Priority Associated Diagnoses Date/Ti [...] D LEVEL ONCE IN A LIFETIME-USE SMARTSET# [id number] Completed 03/21/2024, 10/01/2023, 08/04/2022, Additional history exists [...] filedocumented as of this encounter Care Teams Game Attendant Relationship Specialty Start Date End Date Alejandro Simmons DO [address] [place] [address] PCP - General Family Medicine 07/07/19 documented as of this encounter
--- OUTSIDE RECORDS SUMMARY | 2024-09-06 04:44 | External Medical Summary | Summary of Care ---
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 [facility] To which of the following clinics are you referring your patient? Arrhythmia/Electrophysiology Clinic Comments History of embolic stroke and SVT with negative atheroscloertic workup. 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; Dyslipidemia, goal LDL below 70; HTN, goal below 130/80; Type 2 diabetes mellitus with hemoglobin A1c goal of less than 7.0% ([facility]); SVT (supraventricular tachycardia) ([facility]) Allergies Active Allergy Reactions Criticality Noted Date Comments Adhesive Tape 12/21/2015 Blister Allopurinol Nausea/vomiting 10/24/2022 Amlodipine Flushing 08/25/2017 Aspirin Rash 02/28/2014 Povidone Iodine 12/21/2015 Colchicine 08/28/2021 Loose stools Egg-Derived Products Other (Please comment) 06/23/2011 No reaction; positive skin test in past/ Environmental 09/29/2000 Grass/molds Iodinated Contrast Media Anaphylaxis High 12/21/2015 Sulfa Antibiotics Rash 02/26/2000 documented as of this encounter (statuses as of 06/13/2024) Medications CENTRUM SILVER PO TABS 1 TABLET [...] as of this encounter (statuses as of 06/13/2024) Active Problems Problem Noted Date Diagnosed Date [...] as of this encounter (statuses as of 06/13/2024) Resolved Problems Problem Noted Date Diagnosed Date [...] as of this encounter (statuses as of 06/13/2024) Immunizations Name Administration Dates Next Due COVID-19 [...] No 09/21/2023 Does the household have a [facility] source of income? (Household - for [...] as of this encounter Progress Notes * Jacky Martell MD - 06/13/2024 10:40 AM EST Patient location: HOME. I was not in a hospital or clinic location. After connecting through televideo, patient was verified with two unique identifiers. Patient (or authorized legal assistance representative) was then informed that this was a Telemedicine visit and being conducted confidentially over secure lines. Methods to assure confidentiality were taken. Patient acknowledged consent and understanding of privacy and security of the Telemedicine visit. The patient agreed to participate. VASCULAR NEUROLOGY- Outpatient Clinic Follow-up [facility] Name: Chayo Dickson REF: LIDIA SIMMONS [address] [place] [address] (office) [phone] (fax) PCP: LIDIA SIMMONS [address] [place] [address] [phone] History provided by: Patient and Family Chief Complaint: Chief Complaint Patient presents with Return Neuro As per last visit A/P: 83 year old female with evet of left sided weakness which partially still remains though very mild.Additionally was found to have a L sup quadrantanopsia on visual field testing that she was unawareof. Possible that this was small vessel (in light of her small vessel risk factors) or embolic in origin pending personal imaging review. I will need imaging for my review including to see if there is any evidence of a previous occipitalischemic event that could explain her symptoms. Though possible that she could have had a small right sided anterior choroidal artery infarct leading to motor and visual field defects. 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 A workup included ziopatch which showed SVT. Changes since last visit: No new changes, her visual field issues remain the same as well as her very minor left sided weakness after her event in 12/2023/ There has been no new stroke like symptoms since our last visit. She feels that overall she has been doing well and her last lipid panel showed an LDL in the 40s. Tolerating her plavix and crestor. Her family member states that her neurologic examination including her DTRs and mild left sided leg and arm weakness (4/5 or 4+/5) are stable ROS: As per HPI otherwise all 14 systems reviewed and are negative. Pertinent Past Medical History: Past Medical History: Diagnosis Date Allergic rhinitis [...] 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 Current Outpatient Medications: Current Outpatient Medications Medication Sig Dispense Refill [...] No current facility-administered medications for this visit. FAMILY HISTORY: Family History Problem Relation Name Age of Onset Diabetes Mother Heart Disorder Mother Hypertension Mother Musculo-skeletal Disorder Mother osteoporosis Allergies Mother chronic rhinitis Other (Other) Father gout Heart Disorder Father aortic stenosis Allergies Sister allergic rhinitis Allergies Brother rhinitis Other (CLL) Brother Glaucoma Aunt (Unspecified) X2 Eye Problems None SOCIAL HISTORY: Social History Tobacco Use Smoking status: Former Current packs/day: 0.00 Average packs/day: 1 pack/day for 30.0 years (30.0 ttl pk-yrs) Types: Cigarettes Start date: 06/08/1962 Quit date: 06/08/1992 Years since quittin.0 Smokeless tobacco: Never Tobacco comments: no passive smoke Vaping Use Vaping status: Never Used Substance Use Topics Alcohol use: Yes Comment: occasional Drug use: No OBJECTIVE: Physical Examination: Most Recent Vital Signs: There were no vitals filed for this visit. Exam: Constitutional: Appearance normally developed, well nourished, non-obese, no deformities and well groomed Head and face: normocephalic and atraumatic Eyes: normal lids, normal sclera, normal conjunctiva Neck: symmetrical Respiratory: normal effort Cardiovascular: Unable to perform via video Abdomen: Unable to perform via video Skin: no rashes, lesions, or ulcers noted Psychiatric: normal mood and normal affect NEUROLOGIC EXAMINATION: Appearance: No Acute Distress Orientation: Awake, Alert, and Oriented x 3 Mental status: alert Memory: Intact Attention: Normal Knowledge: Appropriate Language: No aphasia Speech: No dysarthria Cranial Nerves: 2 Pupils round, equal 3,4,6 Extraocular Movements Intact; no nystagmus 7 No facial asymmetry 8 Intact hearing 9,10 Palate symmetric 11 Good shoulder shrug 12 Tongue Midline Gait: Stable, No ataxia Coordination: No ataxia with finger to nose testing. Some difficulty with the left arm probably related to mild motor issue. Sensory: Unable to perform via video Muscle exam: Normal appearing power in the right upper and lower extremities. Able to lift and sustain against gravity. Some minor weakness/drift in the left upper extremity (bouncing--though no clear pronation) Reflexes: Unable to perform via video LABORATORY: Labs reviewed and pertinent findings are indicated below: LDL results: Lab Results Component Value Date/Time LDL CHOLESTEROL (CALCULATED) - [facility] 70 10/01/2023 10:17 AM LDL CHOLESTEROL (CALCULATED) - [facility] 83 01/07/2020 09:34 AM LDL CHOLESTEROL (DIRECT MEASURE) - [facility] 41 03/21/2024 10:59 AM LDL CHOLESTEROL (DIRECT MEASURE) - [facility] NOT APPLICABLE 01/07/2020 09:34 AM LDL CHOLESTEROL (DIRECT MEASURE) - [facility] 100 07/16/2018 03:51 PM Hemoglobin AIC Results: Lab Results Component Value Date/Time HEMOGLOBIN A1C - [facility] 6.3 (H) 03/21/2024 10:59 AM HEMOGLOBIN A1C - [facility] 6.0 (H) 10/01/2023 10:17 AM HEMOGLOBIN A1C - [facility] 6.5 (H) 10/16/2022 10:54 AM HEMOGLOBIN A1C - [facility] 6.0 (H) 01/07/2020 09:34 AM HEMOGLOBIN A1C - [facility] 5.9 05/21/2013 12:09 PM Lab Results Component Value Date/Time TSH - [facility] 0.79 11/20/2022 02:19 PM TSH - [facility] 1.04 12/07/2014 09:23 AM Review of prior Diagnostic Tests: -None new Review of prior Radiology Studies: -None new Decision making: -I personally reviewed the following images. My findings and interpretations are as follows: MRI and MRA. MRA starts relatively high in the neck missing a good portion of the CCAs and proximal vertebral arteries. MRI brain showed several areas of diffusion restriction in the right hemipshere--with 1 or 2 looking slightly of different age concerning for embolic phenomenon which differed from the report. Additionally there is a chronic L occipital cortical stroke without obvious evidence of ICAD nor evidence of proximal R ICA stenosis. IMPRESSION: 83 year old female with a history of embolic appearing R MCA stroke. We discussed that her MRA was sort of limited in the sense of her arch evaluation and proximal brachiocephalic/L CCA/vertebral arteries and that we could consider CTA--though she has had anaphylaxis. This would likely not records management associate in terms of need for plavix and statin therapy if large artery atherosclerosisof the aortic arch was found so will forego this. The only thing that would currently records management associate would be if Afib was found. They would like to discuss more fully with cardiology including a consideration for ILR placement at this time. I didrecommend the below for some visual field training programs: Training programs for visual field deficits. 1. Eye-search - a saccadic training program for either hemianopia or neglect patient. Developed at the [facility]. It is free. Web site is http://www.eyesearch.ucl.ac.uk/ 2. Read-right - designed to improve reading speed in left to right readers with right homonymous hemianopsia. Developed at [facility]. It is free. 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 Consider longer term cardiac event monitoring. If Afib found then would recommend switch from plavix to oral anticoagulation (E78.5) Dyslipidemia, goal LDL below 70 Plan: Last LDL at goal. No need for change in statin dose at this time (E11.9) Type 2 diabetes mellitus with hemoglobin A1c goal of less than 7.0% (HCC) (I10) HTN, goal below 130/80 Plan: . Last HgbA1c at goal. I encouraged the patient to follow up with their PCP regarding ongoingtreatment and care for this condition (I47.10) SVT (supraventricular tachycardia) (HCC) Plan: CARDIOLOGY REFERRAL OP Consideration/discussion for cardiac monitoring Plan: Cardiology referral op -Risk factors for stroke should continue to be addressed aggressively, with the following goals as applicable: SBP < 130/80, LDL < 70, HbA1c < 7%, adequate oral hydration (at least 64oz of water daily), 3-5 days of moderate intensity exercise per week, Mediterranean diet -I educated the patient and his/her family regarding stroke risk factors, warning symptoms, the availability of time-sensitive therapy, and the importance of activating EMS early. She will follow up with me as needed. I asked her to reach out in the future if need or concern forfollow up. I spent a total of 30-39 minutes (exact time 36 mins) on the date of service in preparation, delivery, and documentation of the care provided to Chayo Dickson excluding any time spent in the performance of separately billed services or time spent by another provider/QHP. Jacky Martell MD 06/13/2024 10:15 AM documented in this encounter Plan of Treatment Upcoming Encounters Date Type Department Care Team (Late st Contact Info) Description 07/13/2024 1:40 PM EST Office Visit Rheumatology [address] [place] [address] Akshat Portillo MD [address] [place] [address] [place] [address] 10/06/2024 3:40 PM EDT Office Visit Family Practice [facility] [address] [place] [address] Lidia Simmons DO [address] [place] [address] Scheduled Procedures Name Priority Associated Diagnoses Date/Ti me COLONOSCOPY FLEXIBLE PROXIMAL DIAGNOSTIC Recall History of colon polyps Scheduled Referrals Name Type Priority Associated Diagnoses Orde r Schedule CARDIOLOGY REFERRAL OP Referral Within 10 days (routine) 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 SVT (supraventricular tachycardia) (HCC) Ordered: 06/13/2024 Health Maintenance Due Date Last Done Comments [...] D LEVEL ONCE IN A LIFETIME-USE SMARTSET# [id number] Completed 03/21/2024, 10/01/2023, 08/04/2022, Additional history exists [...] as of this encounter Visit Diagnoses Diagnosis Chronic ischemic right MCA stroke- Primary Transient ischemic attack (TIA), and cerebral infarction without residual deficits 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
--- OUTSIDE RECORDS SUMMARY | 2024-09-06 04:45 | External Medical Summary | Summary of Care ---
Author Name Unknown Organization [facility] Address [address] [place] [address] Phone [phone] Care Team Providers Care Electronics Inspector Name Role Phone Alejandro Simmons Primary Care Provider Encounter Details Date Type Department Care Team (Latest Contact Info) Description 12/26/2023 12:25 PM EDT - 12/26/2023 1:19 PM EDT Hospital Encounter Radiology Film File [address] [place] [address] Discharge Disposition: Home - Self Care Allergies Active Allergy Reactions Criticality Noted Date Comments Adhesive Tape 12/21/2015 Blister Allopurinol Nausea/vomiting 10/24/2022 Amlodipine Flushing 08/25/2017 Aspirin Rash 02/28/2014 Povidone Iodine 12/21/2015 Colchicine 08/28/2021 Loose stools Egg-Derived Products Other (Please comment) 06/23/2011 No reaction; positive skin test in past/ Environmental 09/29/2000 Grass/molds Iodinated Contrast Media Anaphylaxis High 12/21/2015 Sulfa Antibiotics Rash 02/26/2000 documented as of this encounter (statuses as of 05/25/2024) Medications CENTRUM SILVER PO TABS 1 TABLET [...] and 2 Tablets in the evening. Active documented as of this encounter (statuses as of 05/25/2024) Active Problems Problem Noted Date Diagnosed Date [...] as of this encounter (statuses as of 05/25/2024) Resolved Problems Problem Noted Date Diagnosed Date [...] as of this encounter (statuses as of 05/25/2024) Immunizations Name Administration Dates Next Due COVID-19 mRNA, LNP-s, No Pre serve, 2-Dose Series (Moderna) 11/19/2023,08/13/2020,07/10/2020 COVID-19, MRNA-LNP, PF, 50 M CG/0.5 mL, 12 YRS AND ABOVE, IM (MODERNA-Spikevax) 11/19/2023,03/23/2023 COVID-19, mRNA, LNP-s, PF, B ooster, 100mcg/0.5mg (Moderna) 09/25/2021,04/04/2021 Covid-19, Mrna, Lnp-s, Pf, B ivalent, 50 Mcg, IM, 12 yrs and above (Moderna) 10/31/2022,03/13/2022 Pneumococcal Conjugate Vacc, 13 Valent (Prevnar) 06/26/2016 Pneumococcal Polysaccharide PPV23 (Pneumovax) 07/16/2018 TD, Preservative Free 06/18/2010 TDAP (age 10 [...] 09/21/2023 Does the household have a re lar source of income? (Household - for ages [...] [address] [place] [phone] Jacky Martell MD [address] [facility] [place] [id number] 10/06/2024 3:40 PM EDT Office Visit Family [facility] [address] [place] [address] Alejandro Simmons, [address] [place] [address] Scheduled Procedures Name Priority Associated Diagnoses Date/Ti [...] D LEVEL ONCE IN A LIFETIME-USE SMARTSET# [id number] Completed 03/21/2024, 10/01/2023, 08/04/2022, Additional history exists [...] Procedure Name Priority Date/Time Associated Diagnosis Comments RADIOLOGY EXAM - CT (IMAGES ONLY, NO REPORT) Routine 12/26/2023 12:25 PM EDT documented in this encounter Results * RADIOLOGY EXAM - CT (IMAGES ONLY, NO REPORT) (12/26/2023 12:25 PM EDT) 12/26/2023 12:2 5 PM EDT Narrative Scheduling, Silent - 05/24/2024 2:55 PM EST This is an imaging study not interpreted or resulted by a [facility] or [facility] radiologist. us Jacky Martell MD RAD CT Final Resu lt documented in this encounter Care Teams Electronics Inspector Relationship Specialty Start Date End Date Alejandro Simmons DO [address] [place] [address] PCP - General Family Medicine 07/07/19 documented as of this encounter
--- OUTSIDE RECORDS SUMMARY | 2024-09-06 04:45 | External Medical Summary | Summary of Care ---
Author Name Unknown Organization [facility] Address [address] [place] [address] Phone [phone] Care Team Providers Care Hospital Liaison Name Role Phone Alejandro Simmons Primary Care Provider Encounter Details Date Type Department Care Team (Late st Contact Info) Description 12/26/2023 Orders Only Neurology, [place] [address] [place] [address] Jacky Martell MD [address] [place] [address] Allergies Active Allergy Reactions Criticality Noted Date Comments Adhesive Tape 12/21/2015 Blister Allopurinol Nausea/vomiting 10/24/2022 Amlodipine Flushing 08/25/2017 Aspirin Rash 02/28/2014 Povidone Iodine 12/21/2015 Colchicine 08/28/2021 Loose stools Egg-Derived Products Other (Please comment) 06/23/2011 No reaction; positive skin test in past/ Environmental 09/29/2000 Grass/molds Iodinated Contrast Media Anaphylaxis High 12/21/2015 Sulfa Antibiotics Rash 02/26/2000 documented as of this encounter (statuses as of 05/24/2024) Medications CENTRUM SILVER PO TABS 1 TABLET [...] as of this encounter (statuses as of 05/24/2024) Active Problems Problem Noted Date Diagnosed Date [...] as of this encounter (statuses as of 05/24/2024) Resolved Problems Problem Noted Date Diagnosed Date [...] as of this encounter (statuses as of 05/24/2024) Immunizations Name Administration Dates Next Due COVID-19 [...] No 09/21/2023 Does the household have a [facility] source of income? (Household - for ages [...] [place] [phone] Jacky Martell MD [address] [facility] [place] [address] 10/06/2024 3:40 PM EDT Office Visit Family Practice [facility] [address] [place] [address] Alejandro Simmons DO [address] [place] [address] Scheduled Procedures Name Priority Associated Diagnoses Date/Ti [...] D LEVEL ONCE IN A LIFETIME-USE SMARTSET# [id number] Completed 03/21/2024, 10/01/2023, 08/04/2022, Additional history exists [...] Date/Time Associated Diagnosis Comments RADIOLOGY EXAM - MRI (IMAGES ONLY, NO REPORT) Routine 12/26/2023 4:00 PM EDT documented in this encounter Results * RADIOLOGY EXAM - MRI (IMAGES ONLY, NO REPORT) (12/26/2023 4:00 PM EDT) 12/26/2023 3:57 PM EDT Narrative Scheduling, Silent - 05/24/2024 2:51 PM EST This is an imaging study not interpreted or resulted by a [facility] or [facility] contracted radiologist. us Jacky Martell MD RAD MRI-MRA Final Resu lt documented in this encounter Care Teams Hospital Liaison Relationship Specialty Start Date End Date Alejandro Simmons DO [address] [place] [address] PCP - General Family Medicine 07/07/19 documented as of this encounter
--- OUTSIDE RECORDS SUMMARY | 2024-09-06 04:45 | External Medical Summary | Summary of Care ---
Author Name Unknown Organization [facility] Address [address] [place] [address] Phone [phone] Care Team Providers Care Chief Growth Officer Name Role Phone Alejandro Simmons Primary Care Provider Encounter Details Date Type Department Care Team (Late st Contact Info) Description 12/26/2023 Orders Only Neurology, [place] [address] [place] [address] Jacky Martell MD [address] [place] [address] Allergies Active Allergy Reactions Criticality [...] No 09/21/2023 Does the household have a [facility] source of income? (Household - for [...] [place] [phone] Jacky Martell MD [address] [facility] [place] [address] 10/06/2024 3:40 PM EDT Office Visit Family Practice [facility] [address] [place] [address] Alejandro Simmons DO [address] [place] [address] Scheduled Procedures Name Priority Associated Diagnoses Date/Ti [...] D LEVEL ONCE IN A LIFETIME-USE SMARTSET# [id number] Completed 03/21/2024, 10/01/2023, 08/04/2022, Additional history exists [...] MRI (IMAGES ONLY, NO REPORT) Routine 12/26/2023 1:20 PM EDT documented in this encounter Results * RADIOLOGY EXAM - MRI (IMAGES ONLY, NO REPORT) (12/26/2023 1:20 PM EDT) 12/26/2023 1:16 PM EDT Narrative Scheduling, Silent - 05/24/2024 2:53 PM EST This is an imaging study not interpreted or resulted by a [facility] or [facility] contracted radiologist. us Jacky Martell MD RAD MRI-MRA Final Resu lt documented in this encounter Care Teams Chief Growth Officer Relationship Specialty Start Date End Date Alejandro Simmons DO [address] [place] [address] PCP - General Family Medicine 07/07/19 documented as of this encounter
--- OUTSIDE RECORDS SUMMARY | 2024-09-06 04:45 | External Medical Summary | Summary of Care ---
Author Name Unknown Organization [facility] Address [address] [place] [address] Phone [phone] Care Team Providers Care Beauty Therapist Name Role Phone Alejandro Simmons Primary Care Provider Encounter Details Date Type Department Care Team (Latest Contact Info) Description 12/26/2023 4:00 PM EDT - 12/26/2023 4:09 PM EDT Hospital Encounter Radiology Film File [address] [place] [address] Discharge Disposition: Home - Self [...] MD [address] [facility] [place] [id number] 10/06/2024 3:40 PM EDT Office Visit Family [facility] [address] [place] [address] Alejandro Simmons, [address] [place] [address] Scheduled Procedures Name Priority Associated Diagnoses Date/Ti [...] D LEVEL ONCE IN A LIFETIME-USE SMARTSET# [id number] Completed 03/21/2024, 10/01/2023, 08/04/2022, Additional history exists [...] interpreted or resulted by a [facility] or [facility] radiologist. us Jacky Martell MD RAD MRI-MRA Final Resu lt documented in this encounter Care Teams Beauty Therapist Relationship Specialty Start Date End Date Alejandro Simmons DO [address] [place] [address] PCP - General Family Medicine 07/07/19 documented as of this encounter
--- OUTSIDE RECORDS SUMMARY | 2024-09-06 04:45 | External Medical Summary | Summary of Care ---
Author Name Unknown Organization [facility] Address [address] [facility] [place] [address] Phone [phone] Care Team Providers Care Curtain Hemmer Automatic Name Role Phone Alejandro Simmons Primary Care Provider Reason for Visit * Reason Onset Date Comments Test Results Imaging Study 05/27/2024 Encounter Details Date Type Department Care Team (Late st Contact Info) Description 05/27/2024 Telephone Neurology [address] [place] [phone] Johanna Cam, RN Test Results Imaging Study Allergies Active Allergy Reactions Criticality Noted Date Comments Adhesive Tape 12/21/2015 Blister Allopurinol Nausea/vomiting 10/24/2022 Amlodipine Flushing 08/25/2017 Aspirin Rash 02/28/2014 Povidone Iodine 12/21/2015 Colchicine 08/28/2021 Loose stools Egg-Derived Products Other (Please comment) 06/23/2011 No reaction; positive skin test in past/ Environmental 09/29/2000 Grass/molds Iodinated Contrast Media Anaphylaxis High 12/21/2015 Sulfa Antibiotics Rash 02/26/2000 documented as of this encounter (statuses as of 05/27/2024) Medications CENTRUM SILVER PO TABS 1 TABLET [...] the morning. 90 Tablet 3 4 Active documented as of this encounter (statuses as of 05/27/2024) Active Problems Problem Noted Date Diagnosed Date [...] as of this encounter (statuses as of 05/27/2024) Resolved Problems Problem Noted Date Diagnosed Date [...] as of this encounter (statuses as of 05/27/2024) Immunizations Name Administration Dates Next Due COVID-19 [...] PM EDT documented as of this encounter Miscellaneous Notes * Telephone Encounter - Johanna Cam RN - 05/27/2024 9:51 AM EST Call placed to patient who was verified by name and date of . Message from Dr. Martell relayed to patient, patient verbalized understanding. Pt states she is still currently on Plavix. Appt for 06/13/2024 confirmed with patient. Pt advised to return call with any additional questions or concerns. Johanna Cam RN 05/27/2024 9:55 AM documented in this encounter Plan of Treatment Upcoming Encounters Date Type Department Care Team (Late st Contact Info) Description 06/13/2024 10:40 AM EST Telemedicine Neurology [address] [place] [phone] Jacky Martell MD [address] [facility] [place] [address] 10/06/2024 3:40 PM EDT Office Visit Family Practice [facility] [address] [place] [address] Alejandro Simmons DO [address] [place] [address] Scheduled Procedures Name Priority Associated Diagnoses Date/Ti [...] D LEVEL ONCE IN A LIFETIME-USE SMARTSET# [id number] Completed 03/21/2024, 10/01/2023, 08/04/2022, Additional history exists [...] filedocumented as of this encounter Care Teams Curtain Hemmer Automatic Relationship Specialty Start Date End Date Alejandro Simmons DO [address] [place] [address] PCP - General Family Medicine 07/07/19 documented as of this encounter
--- OUTSIDE RECORDS SUMMARY | 2024-09-06 04:45 | External Medical Summary | Summary of Care ---
Author Name Unknown Organization [facility] Address [address] [place] [address] Phone [phone] Care Team Providers Care Motion Graphics Designer Name Role Phone Alejandro Simmons Primary Care Provider Encounter Details Date Type Department Care Team (Latest Contact Info) Description 12/26/2023 4:10 PM EDT - 12/26/2023 11:59 PM EDT Hospital Encounter Radiology Film File [address] [place] [address] Discharge Disposition: Home - Self [...] [place] [phone] Jacky Martell MD [address] [facility] [place] [id number] 10/06/2024 3:40 PM EDT Office Visit Family [facility] [address] [place] [address] Alejandro Simmons, [address] [place] [address] Scheduled Procedures Name Priority Associated Diagnoses Date/Ti [...] D LEVEL ONCE IN A LIFETIME-USE SMARTSET# [id number] Completed 03/21/2024, 10/01/2023, 08/04/2022, Additional history exists [...] MRI (IMAGES ONLY, NO REPORT) Routine 12/26/2023 4:10 PM EDT documented in this encounter Results * RADIOLOGY EXAM - MRI (IMAGES ONLY, NO REPORT) (12/26/2023 4:10 PM EDT) 12/26/2023 4:07 PM EDT Narrative Scheduling, Silent - 05/24/2024 2:57 PM EST This is an imaging study not interpreted or resulted by a [facility] or [facility] contracted radiologist. us Jacky Martell MD RAD MRI-MRA Final Resu lt documented in this encounter Care Teams Motion Graphics Designer Relationship Specialty Start Date End Date Alejandro Simmons DO [address] [place] [address] PCP - General Family Medicine 07/07/19 documented as of this encounter
--- OUTSIDE RECORDS SUMMARY | 2024-09-06 04:45 | External Medical Summary | Summary of Care ---
Author Name Unknown Organization [facility] Address [address] [place] [address] Phone [phone] Care Team Providers Care Cna Hha Name Role Phone Alejandro Simmons Primary Care Provider Reason for Visit * Reason Onset Date Comments Return Visit 6 month Medication Administration 03/29/2024 Flu an d/or Pneumo Inj Encounter Details Date Type Department Care Team (Late st Contact Info) Description 03/29/2024 1:40 PM EDT Office Visit Family Practice [facility] [address] [place] [address] Lamar Jamil CRNP [address] [place] [address] Encounter for long-term (current) use of medications*; Cerebrovascular accident (CVA), unspecified mechanism (HCC); Rhinitis, nonallergic; Left hand weakness; HTN, goal below 130/80; Dyslipidemia; Diabetes mellitus without complication (HCC); Need for influenza vaccination; Quadrantanopia, unspecified laterality Allergies Active Allergy Reactions Criticality Noted Date Comments Adhesive Tape 12/21/2015 Blister Allopurinol Nausea/vomiting 10/24/2022 Amlodipine Flushing 08/25/2017 Aspirin Rash 02/28/2014 Povidone Iodine 12/21/2015 Colchicine 08/28/2021 Loose stools Egg-Derived Products Other (Please comment) 06/23/2011 No reaction; positive skin test in past/ Environmental 09/29/2000 Grass/molds Iodinated Contrast Media Anaphylaxis High 12/21/2015 Sulfa Antibiotics Rash 02/26/2000 documented as of this encounter (statuses as of 03/29/2024) Medications Medication Sig Dispensed Refills Start Date End Date Status CENTRUM SILVER PO TABS 1 TABLET DAILY Active ZADITOR 0.025 % OP SOLNIndications:A llergic rhinitis Instill into eye. 06/23/2011 A ctive NASAL SALINE 0.65 % [...] Active Clopidogrel Bisulfate 75 MG Oral Tablet (pLAVix)Indicatio ns:Chronic ischemic right MCA stroke Take 1 Tablet by mouth in the morning. 90 Tablet 3 02/15/2024 Active Lisinopril-hydroC HLOROthiazide 20-12.5 MG Oral Tablet TAKE 1 TABLET BY MOUTH TWO TIMES DAILY 180 Tablet 2 03/03/2024 Active Azelastine HCl 0.1 % Nasal Solution (Astelin)Indicati ons:Rhinitis, nonallergic SPRAY 2 SPRAYS INTO EACH NOSTRIL TWO TIMES DAILY 90 mL 3 03/29/2024 Active Rosuvastatin Calcium 20 MG Oral Tablet (Crestor)Indicati ons:Cerebrovascul ar accident (CVA), unspecified mechanism (HCC),Dyslipidemi a Take 1 Tablet by mouth in the morning. 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 Repeat as needed. 30 Tablet 5 05/11/2023 4 Discontinue d(Medicatio n List Clean Up) Rosuvastatin Calcium 20 MG Oral Tablet (Crestor) Take 1 Tablet by mouth in the morning. 30 Tablet 11 01/01/2024 4 Discontinue d(Refill) Fluticasone Propionate 50 MCG/ACT Nasal Suspension (Flonase)Indicati ons:Rhinitis, nonallergic USE TWO SPRAYS IN EACH NOSTRIL TWO TIMES DAILY 96 mL 3 02/17/2024 4 Discontinue d(Medicatio n List Clean Up) Atorvastatin Calcium 40 MG Oral Tablet (Lipitor) Take 1 Tablet by mouth in the morning. In the morning.. 12/27/2023 4 Discontinue d(Medicatio n List Clean Up) documented as of this encounter (statuses as of 03/29/2024) Active Problems Problem Noted Date Diagnosed Date [...] as of this encounter (statuses as of 03/29/2024) Resolved Problems Problem Noted Date Diagnosed Date [...] as of this encounter (statuses as of 03/29/2024) Immunizations Name Administration Dates Next Due COVID-19 mRNA, LNP-s, No Pre serve, 2-Dose Series (Moderna) 11/19/2023,08/13/2020,07/10/2020 COVID-19, MRNA-LNP, 23-24, P F, 50 MCG/0.5 [...] 03/25/2022 Hunger Vital Sign Answer Date Recorded Within [...] ages 0-17 years) Not on file 09/21/2023 Sex and Gender Information Value Date Recorded Sex Assigned at Female 01/16/2020 2:52 PM EDT Gender Identity Female 01/16/2020 2:52 PM EDT Sexual Orientation Straight 01/16/2020 2: 52 PM EDT Job Start Date Occupation Industry Not on file Not on file Not on file documented as of this encounter Last Filed Vital Signs Vital Sign Reading Time Taken Comments Blood Pressure 132/74 03/29/2024 1:30 PM EDT Pulse 68 03/29/2024 1:30 PM EDT Temperature 37.1 C (98.7 F) 03/29/2024 1:30 PM ED T Respiratory Rate - - Oxygen Saturation 95% 03/29/2024 1:30 PM EDT Inhaled Oxygen Concentration - - Weight 98.4 kg (217 lb) 03/29/2024 1:30 PM EDT Height 158.8 cm (5' 2.5") 03/29/2024 1:30 PM EDT Body Mass Index 39.06 03/29/2024 1:30 PM EDT documented in this encounter Progress Notes * Leah Mendez LPN - 03/29/2024 2:29 PM EDT PRE - ADMINISTRATION DOCUMENTATION Are you experiencing any cold symptoms or fever? No Have you had Guillain-Cedaredge Syndrome (an illness that causes paralysis) within the last 6 weeks? No Have you had the flu shot in the past? YES Have you ever had a reaction to the flu shot? No Leah Mendez LPN, 03/29/2024 2:29 PM Immunization Administration Documentation Time Out Procedure Performed: Yes Patient Identified (Ask Name/Date of ): Yes Does the patient have a fever greater than 101 degrees today? No Patient allergic to latex? No VFC Stock: No Immunization(s) verified: Yes, Immunization Name: Flu, VIS Sheet(s) given: Yes Verified Side and Site: Yes Verified Shot(s) with Parent(s)/Patient: Yes * Lamar Jamil CRNP - 03/29/2024 1:41 PM EDT Images from the original note were not included. History of Present Illness Chayo Dickson is a 83 year old female that presents for Return Visit (6 month ) and Medication Administration (Flu and/or Pneumo Inj) HPI Here for routine follow up - presents with [id number]. Since her last routine PCP visit she hadan ischemic CVA affecting R MCA that presented as L hand weakness. The hand symptoms seemed to resolve within a day and she reports no problems with balance, weakness in L leg or L hand. She is R-hand dominant. She was discharged on plavix and crestor. 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 She is following with ophthalmology for this. Per patient report she understands there is a 20-25% chance she may regain enough of the vision to reapply for license. She is managi ng ok without her license -- has supportive family, friends to help her get to appointments and to stop into see her regularly. She has someone help her with house cleaning. She has no concerns abouther mood. Sleep is ok. She cooks for herself and has groceries delivered via [employer]. She has followed up with neurology - most recent visit notes reviewed. Per patient's [id number]-[id number] is a physician she possibly has residual L-sided motor weakness in hand and proximal leg strength - he measured at about 4.5/5. She manages DM, gout with diet. We reviewed her most recent labs. She had a recent gout flare for which she took prednisone. Her WBC was mildly elevated on recent labs and notes the labs were done prior to starting the prednisone. She is almost done with the prednisone taper with good improvement in symptoms. Has not been able to tolerate other anti-gout medications in past. Denies dysuria or difficulty controlling bowel or bladder. Denies any recent falls. Denies dark/tarry appearing stools. She had a scant amount of blood on her pillowcase this morning that she believes may have been from her R ear. She has no ear pain. She does have allergic rhinitis which seems a little worse in recent days. Current Outpatient Medications Medication Sig Dispense Refill Azelastine HCl 0.1 % Nasal Solution (Astelin) SPRAY 2 SPRAYS INTO EACH NOSTRIL TWO TIMES DAILY 90 mL 3 Rosuvastatin Calcium 20 MG Oral Tablet (Crestor) Take 1 Tablet by mouth in the morning. 90 Tablet 3 Lisinopril-hydroCHLOROthiazide 20-12.5 MG Oral Tablet TAKE 1 TABLET BY MOUTH TWO TIMES DAILY 180 Tablet 2 Clopidogrel Bisulfate 75 MG Oral Tablet (pLAVix) Take 1 Tablet by mouth in the morning. 90 Tablet 3 Ondansetron HCl 4 MG Oral Tablet (Zofran) Take 1 Tablet by mouth every 8 hours as needed for Nausea. Acetaminophen ER 650 MG Oral Tablet Extended Release Take 2 Tablets by mouth in the morning and 2 Tablets at noon and 2 Tablets in the evening. Propylene Glycol 0.6 % Ophthalmic Solution Instill 1 Drop into eye in the morning and 1 Drop in theevening. Vitamin D, Cholecalciferol, 1000 UNITS CAPS Take 1 Capsule by mouth in the morning. NASAL SALINE 0.65 % NA SOLN flush each nostril morning and night and every 2-4 hrs as needed for nasal dryness or congestion 1 Bottle 5 ZADITOR 0.025 % OP SOLN Instill into eye. CENTRUM SILVER PO TABS 1 TABLET DAILY Fexofenadine HCl 180 MG Oral Tablet (Devi) Take by mouth 1 Tablet in the morning. (Patient taking differently: Take 1 Tablet by mouth at bedtime.) 90 Tablet 3 No current facility-administered medications for this visit. Physical Exam Vitals: 03/29/24 1330 Temp: 37.1 C (98.7 F) Pulse: 68 SpO2: 95% BP: 132/74 BMI: 39.03 Physical Exam Vitals reviewed. Constitutional: Appearance: Normal appearance. HENT: Head: Normocephalic and atraumatic. Right Ear: Tympanic membrane, ear canal and external ear normal. Left Ear: Tympanic membrane, ear canal and external ear normal. Ears: Comments: R ear: tiny submillimeter sized piece of dried blood in R canal Nose: Nose normal. Mouth/Throat: Mouth: Mucous membranes are moist. Eyes: General: Visual field deficit present. Extraocular Movements: Extraocular movements intact. Conjunctiva/sclera: Conjunctivae normal. Pupils: Pupils are equal, round, and reactive to light. Comments: + visual field deficit Cardiovascular: Rate and Rhythm: Normal rate and regular rhythm. Heart sounds: Normal heart sounds. Pulmonary: Effort: Pulmonary effort is normal. Breath sounds: Normal breath sounds. Abdominal: General: There is no distension. Palpations: Abdomen is soft. Tenderness: There is no abdominal tenderness. Musculoskeletal: Cervical back: Neck supple. Right lower leg: No edema. Left lower leg: No edema. Lymphadenopathy: Cervical: No cervical adenopathy. Skin: General: Skin is warm and dry. Capillary Refill: Capillary refill takes less than 2 seconds. Neurological: Mental Status: She is alert and oriented to person, place, and time. Cranial Nerves: No dysarthria or facial asymmetry. Sensory: Sensation is intact. Motor: Weakness (L hand associate professor of mathematics strength 4.5/5; L hip flexion 4.5/5 otherwise normal strength throughout) present. Coordination: Vftzfa-Abwr-Msvilp Test and Heel to Hernandez Test normal. Gait: Gait normal. Psychiatric: Behavior: Behavior normal. Thought Content: Thought content normal. Assessment and Plan Encounter for long-term (current) use of medications - COMPREHENSIVE METABOLIC PANEL; Future - CBC WITH WBC DIFFERENTIAL; Future - LIPID PANEL WITH DIRECT LDL IF TG IS HIGH; Future - HEMOGLOBIN A1C; Future Cerebrovascular accident (CVA), unspecified mechanism (HCC) - Rosuvastatin Calcium 20 MG Oral Tablet (Crestor); Take 1 Tablet by mouth in the morning. Rhinitis, nonallergic - Azelastine HCl 0.1 % Nasal Solution (Astelin); SPRAY 2 SPRAYS INTO EACH NOSTRIL TWO TIMES DAILY Left hand weakness Questionable - possibly 4.5/5 in L hand and L hip flexion HTN, goal below 130/80 - COMPREHENSIVE METABOLIC PANEL; Future Dyslipidemia - Rosuvastatin Calcium 20 MG Oral Tablet (Crestor); Take 1 Tablet by mouth in the morning. - COMPREHENSIVE METABOLIC PANEL; Future - LIPID PANEL WITH DIRECT LDL IF TG IS HIGH; Future Diabetes mellitus without complication (HCC) - HEMOGLOBIN A1C; Future Need for influenza vaccination - SEASONAL INFLUENZA, MDCK, TRIVALENT, PF, (FLUCELVAX) Quadrantanopia, unspecified laterality Following ophthalmology Wrap-Up Follow Up: Return if symptoms worsen or fail to improve, for Labs 2-5 Days Before Next Visit. | For: Labs 2-5 Days Before Next Visit Time: I spent a total of 30-39 minutes (exact time 35 mins) on the date of service in preparation, delivery, and documentation of the care provided to Chayo Dickson excluding any time spent in the performance of separately billed services. documented in this encounter Nursing Notes * Leah Mendez LPN - 03/29/2024 1:29 PM EDT The patient has been properly identified by confirmation of name and date of . Chief Complaint Patient presents with Return Visit 6 month Pt had gout arthritis flare in L foot-- just finished prednisone taper for 9 days. documented in this encounter Plan of Treatment Upcoming Encounters Date Type Department Care Team (Late st Contact Info) Description 06/13/2024 10:40 AM EST Telemedicine Neurology [facility] [address] [place] [address] [place] [address] Jacky Martell MD [address] [facility] [place] [id number] 07/06/2024 1:00 PM EST Office Visit Rheumatology [place] [id number] [facility] [place] [address] Akshat Portillo MD [address] [facility] [place] [address] 10/06/2024 3:40 PM EDT Office Visit Family Practice [facility] [address] [place] [address] Alejandro Simmons DO [address] [place] [address] Scheduled Orders Name Type Priority Associated Diagnoses Orde r Schedule COMPREHENSIVE METABOLIC PANEL Lab Routine HTN, goal below 130/80 Dyslipidemia Encounter for long-term (current) use of medications Expected: 09/27/2024 (Approximate), Expires: 03/29/2025 CBC WITH WBC DIFFERENTIAL Lab Routine Encounter for long-term (current) use of medications Expected: 09/27/2024 (Approximate), Expires: 03/29/2025 LIPID PANEL WITH DIRECT LDL IF TG IS HIGH Lab Routine Dyslipidemia Encounter for long-term (current) use of medications Expected: 09/27/2024, Expires: 03/29/2025 HEMOGLOBIN A1C Lab Routine Diabetes mellitus without complication (HCC) Encounter for long-term (current) use of medications Expected: 09/27/2024 (Approximate), Expires: 03/29/2025 Scheduled Procedures Name Priority Associated Diagnoses Date/Ti me COLONOSCOPY FLEXIBLE PROXIMAL DIAGNOSTIC Recall History of colon polyps Health Maintenance Due Date Last Done Comments Diabetic Foot Exam 1960 Adult Wellness Visit 2008 *BISPHONATE OR OTHER ACCEPTABLE MEDICATION NEEDED FOR OSTEOPOROSIS (REFER TO SMARTSET #1146) 08/30/2021 COVID-19 Vaccine ( season) 2024 11/19/2023, 11/19/2023, 03/23/2023, Additional history exists HbA1c 09/19/2024 03/21/2024, 09/07, 10/16/2022, Additional history exists Albumin/Creatinine Ratio 09/30/2024 024, 10/24/2022, 03/25/2022, Additional history exists Depression Screening 10/04/2024 10/05/2023 Diabetic Eye Exam 11/29/2024 11/30/2023, , 03/03/2022, Additional history exists GFR 03/21/2025 03/21/2024, 09/07, 10/16/2022, Additional history exists DTap/Tdap Vaccines (2 - Td or Tdap) 06/18/2025 06/18/2015, 06/18/2010, 01/27/1996 DXA Scan Discontinued 09/14/2017, 12/2014, 05/10/2012, Additional history exists Colonoscopy Discontinued 11/24/2017, 11/06, 11/16/2014, Additional history exists RETIRED - COLONOSCOPY-EVERY 5 YRS AGES 18-100 Discontinued 11/24/2017, 11/24/2017, 11/16/2014, Additional history exists Pneumococcal Vaccine: 65+ Years Completed 07/16/2018, 06/26/2016 VITAMIN D LEVEL ONCE IN A LIFETIME-USE SMARTSET# [id number] Completed 03/21/2024, 10/01/2023, 08/04/2022, Additional history exists Influenza Vaccine (FLU shot) Completed 03/29/2024 HPV (Gardasil) Vaccine Aged Out No lo [...] as of this encounter Visit Diagnoses Diagnosis Encounter for long-term (current) use of medications- Primary Encounter for long-term (current) use of other medications Cerebrovascular accident (CVA), unspecified mechanism (HCC) Rhinitis, nonallergic Chronic rhinitis Left hand weakness Muscle weakness (generalized) HTN, goal below 130/80 Unspecified essential hypertension Dyslipidemia Other and unspecified hyperlipidemia Diabetes mellitus without complication (HCC) Type II or unspecified type diabetes mellitus without mention of complication, not stated as uncontrolled Need for influenza vaccination Need for prophylactic vaccination and inoculation against influenza Quadrantanopia, unspecified laterality documented in this encounter Care Teams Cna Hha Relationship Specialty Start Date End Date Alejandro Simmons DO [address] [place] [address] PCP - General Family Medicine 07/07/19 documented as of this encounter
--- OUTSIDE RECORDS SUMMARY | 2024-09-06 04:45 | External Medical Summary | Summary of Care ---
Author Name Unknown Organization [facility] Address [address] [place] [address] Phone [phone] Care Team Providers Care Client Insights Consultant Name Role Phone Alejandro Simmons Primary Care Provider Encounter Details Date Type Department Care Team (Late st Contact Info) Description 12/26/2023 Orders Only Neurology, [facility] [address] [place] [address] Jacky Martell MD [address] [place] [address] Allergies Active Allergy Reactions Criticality [...] No 09/21/2023 Does the household have a [facility] source of income? (Household - for [...] Description 06/13/2024 10:40 AM EST Telemedicine Neurology [address] [place] [phone] Jacky Martell MD [address] [facility] [place] [address] 10/06/2024 3:40 PM EDT Office Visit Family Practice [facility] [address] [place] [address] Alejandro Simmons DO [address] [place] [address] Scheduled Procedures Name Priority Associated Diagnoses Date/Ti [...] D LEVEL ONCE IN A LIFETIME-USE SMARTSET# [id number] Completed 03/21/2024, 10/01/2023, 08/04/2022, Additional history exists [...] interpreted or resulted by a [facility] or [facility] contracted radiologist. us Jacky Martell MD RAD MRI-MRA Final Resu lt documented in this encounter Care Teams Client Insights Consultant Relationship Specialty Start Date End Date Alejandro Simmons DO [address] [place] [address] PCP - General Family Medicine 07/07/19 documented as of this encounter
--- OUTSIDE RECORDS SUMMARY | 2024-09-06 04:45 | External Medical Summary | Summary of Care ---
Author Name Unknown Organization [facility] Address [address] [place] [address] Phone [phone] Care Team Providers Care Instrument Assembler Name Role Phone Alejandro Simmons Primary Care Provider Encounter Details Date Type Department Care Team (Late st Contact Info) Description 12/26/2023 Orders Only Neurology, [place] [address] [place] [address] Jacky Martell MD [address] [place] [address] Allergies Active Allergy Reactions Criticality [...] No 09/21/2023 Does the household have a [facility] source of income? (Household - for [...] [place] [phone] Jacky Martell MD [address] [facility] [place] [address] 10/06/2024 3:40 PM EDT Office Visit Family Practice [facility] [address] [place] [address] Alejandro Simmons DO [address] [place] [address] Scheduled Procedures Name Priority Associated Diagnoses Date/Ti [...] D LEVEL ONCE IN A LIFETIME-USE SMARTSET# [id number] Completed 03/21/2024, 10/01/2023, 08/04/2022, Additional history exists [...] interpreted or resulted by a [facility] or [facility] contracted radiologist. us Jacky Martell MD RAD CT Final Resu lt documented in this encounter Care Teams Instrument Assembler Relationship Specialty Start Date End Date Alejandro Simmons DO [address] [place] [address] PCP - General Family Medicine 07/07/19 documented as of this encounter
--- OUTSIDE RECORDS SUMMARY | 2024-09-06 04:45 | External Medical Summary | Summary of Care ---
Author Name Unknown Organization [facility] Address [address] [place] [address] Phone [phone] Care Team Providers Care Business Account Executive Name Role Phone Alejandro Simmons Primary Care Provider Encounter Details Date Type Department Care Team (Latest Contact Info) Description 12/26/2023 1:20 PM EDT - 12/26/2023 3:59 PM EDT Hospital Encounter Radiology Film File [address] [place] [address] Discharge Disposition: Home - Self [...] [place] [phone] Jacky Martell MD [address] [facility] [place] [id number] 10/06/2024 3:40 PM EDT Office Visit Family [facility] [address] [place] [address] Alejandro Simmons, [address] [place] [address] Scheduled Procedures Name Priority Associated Diagnoses Date/Ti [...] D LEVEL ONCE IN A LIFETIME-USE SMARTSET# [id number] Completed 03/21/2024, 10/01/2023, 08/04/2022, Additional history exists [...] interpreted or resulted by a [facility] contracted radiologist. us Jacky Martell MD RAD MRI-MRA Final Resu lt documented in this encounter Care Teams Business Account Executive Relationship Specialty Start Date End Date Alejandro Simmons DO [address] [place] [address] PCP - General Family Medicine 07/07/19 documented as of this encounter
--- OUTSIDE RECORDS SUMMARY | 2024-09-06 04:45 | External Medical Summary | Summary of Care ---
Author Name Unknown Organization [facility] Address [address] [place] [address] Phone [phone] Care Team Providers Care Personalized Living Manager Name Role Phone Alejandro Simmons DO Primary Care Provider Encounter Details Date Type Department Care Team (Late st Contact Info) Description 01/01/2024 Telephone Family Practice [facility] [address] [place] [address] Alejandro Simmons DO [address] [facility] [id number] Allergies Active Allergy Reactions Criticality Noted Date Comments Adhesive Tape 12/21/2015 Blister Allopurinol Nausea/vomiting 10/24/2022 Amlodipine Flushing 08/25/2017 Aspirin Rash 02/28/2014 Povidone Iodine 12/21/2015 Colchicine 08/28/2021 Loose stools Egg-Derived Products Other (Please comment) 06/23/2011 No reaction; positive skin test in past/ Environmental 09/29/2000 Grass/molds Iodinated Contrast Media Anaphylaxis High 12/21/2015 Sulfa Antibiotics Rash 02/26/2000 documented as of this encounter (statuses as of 04/01/2024) Medications Medication Sig Dispensed Refills Start Date [...] 8 hours as needed for Nausea. 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 Repeat as needed. 30 Tablet 5 3 03/29/20 24 Discontinued(Med ication List Clean Up) Clopidogrel Bisulfate 75 MG Oral Tablet (pLAVix) Take 1 Tablet by mouth in the morning. In the morning.. 4 02/15/20 24 Discontinued(Ref ill) Rosuvastatin Calcium 20 MG Oral Tablet (Crestor) Take 1 Tablet by mouth in the morning. 30 Tablet 11 4 03/29/20 24 Discontinued(Ref ill) documented as of this encounter (statuses as of 04/01/2024) Active Problems Problem Noted Date Diagnosed Date [...] as of this encounter (statuses as of 04/01/2024) Resolved Problems Problem Noted Date Diagnosed Date [...] as of this encounter (statuses as of 04/01/2024) Immunizations Name Administration Dates Next Due COVID-19 [...] encounter Miscellaneous Notes * Telephone Encounter - Makenna Venegas OSA - 01/01/2024 1:18 PM EDT Pt would like to have a porter sample case assigned. Pt family called TONY Davis and they have been advised to contact PCP. Call Pt @ [phone] documented in this encounter Plan of Treatment Upcoming Encounters Date Type Department Care Team (Late st Contact Info) Description 06/13/2024 10:40 AM EST Telemedicine Neurology [address] [place] [phone] Jacky Martell MD [address] [facility] [place] [id number] 07/06/2024 1:00 PM EST Office Visit Rheumatology [facility] [address] [place] [address] Akshat Portillo MD [address] [place], [place] [address] 10/06/2024 3:40 PM EDT Office Visit Family Practice [facility] [address] [place] [address] Alejandro Simmons, [address] [place] [address] Scheduled Procedures Name Priority Associated Diagnoses Date/Ti [...] D LEVEL ONCE IN A LIFETIME-USE SMARTSET# [id number] Completed 03/21/2024, 10/01/2023, 08/04/2022, Additional history exists [...] filedocumented as of this encounter Care Teams Personalized Living Manager Relationship Specialty Start Date End Date Alejandro Simmons DO [address] [place] [address] PCP - General Family Medicine 07/07/19 documented as of this encounter
--- OUTSIDE RECORDS SUMMARY | 2024-09-06 04:46 | External Medical Summary ---
Author Name Unknown Address Unknown Organization [id number]:LABORATORY [facility] [place] - [address] [place] [address] Laboratory Report Ordering Provider Test Date Status JOHN MURILLO 03/21/2024 10:59:03 Final Deficient: <20 ng/mL
Ins ufficient: 20-29 ng/mL
Recommended/Optimum:30-50 ng/mL

Vitamin D intoxication is rare. If suspicious of Vitamin D toxicity, evaluation of serum Calcium and PTH is recommended. Observation Date Value Abnormality Reference (Units ) Status 25-OH Vitamin D total 03/21/2024 10:59:03 35 >19 (ng/mL) Final Performing Location LABORATORY [facility] [place] - [address] [place] [address]
--- OUTSIDE RECORDS SUMMARY | 2024-09-06 04:46 | External Medical Summary ---
Author Name Unknown Address Unknown Organization [id number]:LABORATORY [facility] [place] - [address] [place] [address] Laboratory Report Ordering Provider Test Date Status JOHN MURILLO 03/21/2024 10:59:03 Final Observation Date Value Abnormality Reference (Units ) Status Triglyceride 03/21/2024 10:59:03 155 <=174 ( mg/dL) Final Triglyceride Reference Range s (mg/dL):
<150 Acceptable
150-174 Borderline high
175-499 High
>=500 Very high Cholesterol 03/21/2024 10:59:03 126 <200 (mg /dL) Final Total Cholesterol Reference Ranges (mg/dL):
<200 Desirable
200-239 Borderline high
>=240 High HDL 03/21/2024 10:59:03 51 >49 (mg/dL ) Final HDL Cholesterol Reference Ra nges (mg/dL):
>=60 High (Desirable)
<50 Low (Undesirable) For Females
<40 Low (Undesirable) For Males NON-HDL CHOLESTEROL 03/21/2024 10:59:03 75 <=159 (mg/dL) Final Non-HDL Cholesterol Referenc e Range (mg/dL):
<100 Target level for high risk ASCVD patient
<130 Optimal for general population
130-159 Near optimal for general population
160-189 Borderline High
190-219 High
>=220 Very High Performing Location LABORATORY [facility] [place] - [address] [place] [address]
--- OUTSIDE RECORDS SUMMARY | 2024-09-06 04:46 | External Medical Summary | Summary of Care ---
Author Name Unknown Organization [facility] Address [address] [place] [address] Phone [phone] Care Team Providers Care Pulp Bleacher Name Role Phone Alejandro Simmons Primary Care Provider Reason for Visit * Reason Comments Outpatient Testing Encounter Details Date Type Department Care Team (Late st Contact Info) Description 03/29/2024 1:10 PM EDT Laboratory Laboratory, [facility] [address] [place] [id number] [facility] [address] [place] [address] Diabetes mellitus without complication (HCC); HTN, goal below 130/80 Allergies Active Allergy Reactions Criticality Noted Date [...] and 2 Tablets in the evening. Active Azelastine HCl 0.1 % Nasal Solution (Astelin)Indicati ons:Rhinitis, nonallergic SPRAY 2 SPRAYS INTO EACH NOSTRIL TWO TIMES DAILY 90 mL 3 04/20/2023 Active Ondansetron HCl 4 MG Oral Tablet (Zofran) Take 1 Tablet by mouth every 8 hours as needed for Nausea. Active Rosuvastatin Calcium 20 MG Oral Tablet (Crestor) Take 1 Tablet by mouth in the morning. 30 Tablet 11 01/01/2024 Active Clopidogrel Bisulfate 75 MG Oral Tablet (pLAVix)Indicatio ns:Chronic ischemic right MCA stroke Take 1 Tablet by mouth in the morning. 90 Tablet 3 02/15/2024 Active Lisinopril-hydroC HLOROthiazide 20-12.5 MG Oral Tablet TAKE 1 TABLET BY MOUTH TWO TIMES DAILY 180 Tablet 2 03/03/2024 Active predniSONE 20 MG Oral Tablet (Deltasone)Indica tions:Osteoarthri tis of joints of toes of both feet Take 40 mg by mouth for 3-5 days as directed by physician as needed for joint pain. Repeat as needed. 30 Tablet 5 05/11/2023 Discontinue d(Medicatio n List Clean Up) Fluticasone Propionate 50 MCG/ACT Nasal Suspension (Flonase)Indicati [...] 1:40 PM EDT Office Visit [facility] [address] [facility] [address] Lamar Jamil CRNP [address] [facility] [place] [address] Rhinitis, nonallergic 06/13/2024 10:40 AM EST Telemedicine Neurology [address] [place] [phone] Jacky Martell MD [address] [facility] [place] [address] 07/06/2024 1:00 PM EST Office Visit Rheumatology [place] [id number] [place] [address] Akshat Portillo MD [address] [place] [address] 10/06/2024 3:40 PM EDT Office Visit Family Practice [facility] [address] [place] [address] Alejandro Simmons DO [address] [place] [address] Pending Results Name Type Priority Associated Diagnoses Date /Time ALBUMIN / CREATININE RATIO, URINE Lab Routine Diabetes mellitus without complication (HCC) HTN, goal below 130/80 03/29/2024 1:21 PM EDT Scheduled Procedures Name Priority Associated Diagnoses Date/Ti me COLONOSCOPY FLEXIBLE PROXIMAL DIAGNOSTIC Recall History of colon polyps Health Maintenance Due Date Last Done Comments Diabetic Foot Exam 1960 Adult Wellness Visit 2008 *BISPHONATE OR OTHER ACCEPTABLE MEDICATION NEEDED FOR OSTEOPOROSIS (REFER TO SMARTSET #1146) 08/30/2021 COVID-19 Vaccine ( season) 2024 11/19/2023, 11/19/2023, 03/23/2023, Additional history exists Influenza Vaccine (FLU shot) (#1) 2024 HbA1c 09/19/2024 03/21/2024, 2 10/2023, 10/16/2022, Additional history exists Albumin/Creatinine Ratio 09/30/2024 024, 10/24/2022, 03/25/2022, Additional history exists Depression Screening 10/04/2024 10/05/2023 Diabetic Eye Exam 11/29/2024 11/30/2023, , 03/03/2022, Additional history exists GFR 03/21/2025 03/21/2024, 2 10/2023, 10/16/2022, Additional history exists DTap/Tdap Vaccines (2 - Td or Tdap) 06/18/2025 06/18/2015, 06/18/2010, 01/27/1996 DXA Scan Discontinued 09/14/2017, 04/0 12/2014, 05/10/2012, Additional history exists Colonoscopy Discontinued 11/24/2017, 11/06, 11/16/2014, Additional history exists RETIRED - COLONOSCOPY-EVERY 5 YRS AGES 18-100 Discontinued 11/24/2017, 11/24/2017, 11/16/2014, Additional history exists Pneumococcal Vaccine: 65+ Years Completed 07/16/2018, 06/26/2016 VITAMIN D LEVEL ONCE IN A LIFETIME-USE SMARTSET# [id number] Completed 03/21/2024, 10/01/2023, 08/04/2022, Additional history exists HPV (Gardasil) Vaccine Aged [...] as of this encounter Visit Diagnoses Diagnosis Rhinitis, nonallergic Chronic rhinitis Diabetes mellitus without complication (HCC) Type II or unspecified type diabetes mellitus without mention of complication, not stated as uncontrolled HTN, goal below 130/80 Unspecified essential hypertension documented in this encounter Care Teams Pulp Bleacher Relationship Specialty Start Date End Date Alejandro Simmons DO [address] [place] [address] PCP - General Family Medicine 07/07/19 documented as of this encounter
--- OUTSIDE RECORDS SUMMARY | 2024-09-06 04:46 | External Medical Summary ---
Author Name Unknown Address Unknown Organization [id number]:LABORATORY [place] [facility] - [address] [place] [address] Laboratory Report Ordering Provider Test Date Status JOHN MURILLO 03/21/2024 10:59:03 Final Observation Date Value Abnormality Reference (Units ) Status BUN 03/21/2024 10:59:03 28 Above high normal 6-20 (mg/dL) Final Creatinine 03/21/2024 10:59:03 0.8 0.5-1.0 (mg/dL) Final Glomerular filtration rate/1.73 sq M.predicted [Volume Rate/Area] in Serum, Plasma or Blood by Creatinine-based formula (CKD-EPI) 03/21/2024 10:59:03 71 >=60 (mL/min) Final eGFR is calculated based on the CKD-EPI 2020 equation. Sodium 03/21/2024 10:59:03 138 135-146 (m mol/L) Final Potassium 03/21/2024 10:59:03 4.4 3.5-5.1 (m mol/L) Final Cl 03/21/2024 10:59:03 98 98-107 (mm ol/L) Final CO2 03/21/2024 10:59:03 23 22-32 (mmo l/L) Final Anion gap 03/21/2024 10:59:03 17 Above high normal 7- 15 (mmol/L) Final Glucose 03/21/2024 10:59:03 105 70-120 (mg /dL) Final Albumin 03/21/2024 10:59:03 4.3 3.8-5.0 (g /dL) Final AST (Aspartate aminotransferase) 03/21/2024 10:59:03 18 10-35 (U/L) Fin al Alk Phos 03/21/2024 10:59:03 79 35-130 (U/ L) Final Bilirubin, Total 03/21/2024 10:59:03 0.5 <=1 .2 (mg/dL) Final Calcium 03/21/2024 10:59:03 10.2 8.4-10.2 ( mg/dL) Final Protein 03/21/2024 10:59:03 7.0 6.0-8.3 (g /dL) Final ALT (Alanine aminotransferase) 03/21/2024 10:59:03 18 10-35 (U/L) Pro santos Performing Location LABORATORY [facility] - [address] [place] [address]
--- OUTSIDE RECORDS SUMMARY | 2024-09-06 04:46 | External Medical Summary ---
Author Name Unknown Address Unknown Organization [id number]:LABORATORY [facility] [facility] - [address] [place] [address] Laboratory Report Ordering Provider Test Date Status JOHN MURILLO 03/21/2024 10:59:03 Final Observation Date Value Abnormality Reference (Units ) Status SYNC LEUKOCYTES IN BLOOD BY AUTOMATED COUNT 03/21/2024 10:59:03 14.79 Above high normal 4.00-10.80 (K/uL) Final Segs 03/21/2024 10:59:03 72.2 40.0-75.0 (%) Final Lymphs % 03/21/2024 10:59:03 17.5 Below low normal 18.0-42.0 (%) Final Monos 03/21/2024 10:59:03 8.5 1.0-11.0 (%) Final Eosinophils 03/21/2024 10:59:03 1.6 0.0-6.0 (%) Final Basos 03/21/2024 10:59:03 0.2 0.0-2.0 (%) Final Absolute Segs 03/21/2024 10:59:03 10.68 Above high normal 1.80-7.70 (K/uL) Final Lymphs, absolute 03/21/2024 10:59:03 2.59 1.00-4.80 (K/ul) Final Monos, Abs 03/21/2024 10:59:03 1.26 Above high normal 0.00-1.10 (K/uL) Final Eos, Abs 03/21/2024 10:59:03 0.23 0.00-0.70 (K/uL) Final Basos, Abs 03/21/2024 10:59:03 0.03 0.00-0.20 (K/uL) Final Performing Location LABORATORY [facility] [facility] - [address] [place] [address]
--- OUTSIDE RECORDS SUMMARY | 2024-09-06 04:46 | External Medical Summary ---
Author Name Unknown Address Unknown Organization [id number]:[facility] [place] [address] [place] [address] Laboratory Report Ordering Provider Test Date Status JOHN MURILLO 03/29/2024 13:21:35 Final Normal: <30 mg/g creatinine< br/>High: 30-300 mg/g creatinine
Very High: >300 mg/g creatinine
Nephrotic: >2200 mg/g creatinine Observation Date Value Abnormality Reference (Units ) Status Albumin, Urine 03/29/2024 13:21:35 <1.20 (mg/dL) Final Creatinine, Urine 03/29/2024 13:21:35 48 (mg/dL) Final Albumin/Creatinine [Mass Ratio] in Urine 03/29/2024 13:21:35 <25 <30 (mg/g Creat) Final Performing Location LAB[facility]ATORY [facility] [place] [address] [place] [address]
--- OUTSIDE RECORDS SUMMARY | 2024-09-06 04:46 | External Medical Summary ---
Author Name Unknown Address Unknown Organization K0G[facility] [address] [place] [address] Laboratory Report Ordering Provider Test Date Status JOHN MURILLO 03/21/2024 10:59:03 Final Observation Date Value Abnormality Reference (Units ) Status WBC, Total 03/21/2024 10:59:03 14.79 Above high normal 4 .00-10.80 (K/uL) Final RBC 03/21/2024 10:59:03 4.39 3.85-5.15 (M/uL) Final Hemoglobin 03/21/2024 10:59:03 13.0 12.0-15.3 (g/dL) Final HCT 03/21/2024 10:59:03 40.4 36.0-45.2 (%) Final MCV 03/21/2024 10:59:03 92.0 81.5-97.5 (fL) Final MCH 03/21/2024 10:59:03 29.6 27.0-34.0 (pg) Final MCHC 03/21/2024 10:59:03 32.2 32.0-36.0 (g/dL) Final RDW 03/21/2024 10:59:03 12.7 11.5-15.5 (%) Final Platelets 03/21/2024 10:59:03 366 140-400 (K /uL) Final MPV 03/21/2024 10:59:03 9.4 6.6-11.1 ( fL) Final Performing Location [facility] [facility] - [address] [place] [address]
--- OUTSIDE RECORDS SUMMARY | 2024-09-06 04:46 | External Medical Summary ---
Author Name Unknown Address Unknown Organization K01[place] [place] [address] [place] [address] Laboratory Report Ordering Provider Test Date Status JOHN MURILLO 03/21/2024 10:59:03 Final Observation Date Value Abnormality Reference (Units ) Status Uric Acid 03/21/2024 10:59:03 9.5 Above high normal 2. 4-5.7 (mg/dL) Final Performing Location [facility] [place] [address] [place] [address]
--- OUTSIDE RECORDS SUMMARY | 2024-09-06 04:46 | External Medical Summary ---
Author Name Unknown Address Unknown Organization K01:[facility] [place] [address] [place] [address] Laboratory Report Ordering Provider Test Date Status LIDIAJOHN 03/21/2024 10:59:03 Final Observation Date Value Abnormality Reference (Units ) Status LDL, (direct) 03/21/2024 10:59:03 41 <=129 (mg/dL) Final LDL Cholesterol Reference Ra nges (mg/dL):
<70 Target level for high risk ASCVD patient
<100 Optimal for general population
100-129 Near optimal for general population
130-159 Borderline high
160-189 High
>=190 Very high Performing Location LABORATORY [facility] - [address] [place] [address]
--- OUTSIDE RECORDS SUMMARY | 2024-09-06 04:46 | External Medical Summary ---
Author Name Unknown Address Unknown Organization K01:[facility] [place] [facility] [address] [facility] [address] Laboratory Report Ordering Provider Test Date Status JOHN MURILLO 03/21/2024 10:59:03 Final Observation Date Value Abnormality Reference (Units ) Status HbA1C 03/21/2024 10:59:03 6.3 Above high normal 4. 0-5.6 (%) Final The use of HbA1c to monitor glycemic status is based on normal hemoglobin and HbA composition. This test should not be used in patients with abnormal hemoglobin that affects the half life of the red blood cell or the in vivo glycation rates. Glucose, estimated average 03/21/2024 10:59:03 134 Above high normal <126 (mg/dL) Pro santos Performing Location LAB[facility] [place] [address] [facility] [address]
--- OUTSIDE RECORDS SUMMARY | 2024-09-06 04:46 | External Medical Summary | Summary of Care ---
Author Name Unknown Organization [facility] Address [address] [place] [address] Phone [phone] Care Team Providers Care Key Holder Name Role Phone Dunia Simmonscurt Sneednikkie Primary Care Provider Reason for Visit * Reason Comments Outpatient Testing Encounter Details Date Type Department Care Team (Late st Contact Info) Description 03/21/2024 11:00 AM EDT Laboratory Laboratory, [facility] [address] [place] [id number] [facility] [address] [place] [address] HTN, goal below 130/80; Dyslipidemia, goal LDL below 100; Dyslipidemia; Diabetes mellitus without complication (HCC); Vitamin D deficiency; Gouty arthritis Allergies Active Allergy Reactions Criticality [...] as of this encounter (statuses as of 03/21/2024) Medications Medication Sig Dispensed Refills Start Date [...] Additional Information Patient not taking.Reported on 10/05/2023 Ondansetron HCl 4 MG Oral Tablet (Zofran) Take 1 Tablet by mouth every 8 hours as needed for Nausea. Active Rosuvastatin Calcium 20 MG Oral Tablet (Crestor) Take 1 Tablet by mouth in the morning. 30 Tablet 11 01/01/2024 Active Clopidogrel Bisulfate 75 MG Oral Tablet (pLAVix)Indications :Chronic ischemic right MCA stroke Take 1 Tablet by mouth in the morning. 90 Tablet 3 02/15/2024 Active Fluticasone Propionate 50 MCG/ACT Nasal Suspension (Flonase)Indication s:Rhinitis, nonallergic USE TWO SPRAYS IN EACH NOSTRIL TWO TIMES DAILY 96 mL 3 02/17/2024 Active Lisinopril-hydroCHL OROthiazide 20-12.5 MG Oral Tablet TAKE 1 TABLET BY MOUTH TWO TIMES DAILY 180 Tablet 2 03/03/2024 Active documented as of this encounter (statuses as of 03/21/2024) Active Problems Problem Noted Date Diagnosed Date [...] as of this encounter (statuses as of 03/21/2024) Resolved Problems Problem Noted Date Diagnosed Date [...] as of this encounter (statuses as of 03/21/2024) Immunizations Name Administration Dates Next Due COVID-19 [...] 1:40 PM EDT Office Visit Family Practice [facility] [address] [facility] [place] [address] Lamar Jamil CRNP [address] [place] [address] 06/13/2024 10:40 AM EST Telemedicine Neurology [address] [place] [phone] Jacky Martell MD [address] [facility] [place] [id number] 07/06/2024 1:00 PM EST Office Visit Rheumatology [facility] [address] [place] [address] Akshat Portillo MD [address] [place] [address] 10/06/2024 3:40 PM EDT Office Visit Family Practice [facility] [address] [place] [address] Alejandro Simmons DO [address] [place] [address] Pending Results Name Type Priority Associated Diagnoses Date /Time COMPREHENSIVE METABOLIC PANEL Lab Routine Dyslipidemia, goal LDL below 100 Dyslipidemia 03/21/2024 10:59 AM EDT HEMOGLOBIN A1C Lab Routine Diabetes mellitus without complication (HCC) 03/21/2024 10:59 AM EDT LIPID PANEL WITH DIRECT LDL IF TG IS HIGH Lab Routine Dyslipidemia, goal LDL below 100 03/21/2024 10:59 AM EDT 25-HYDROXY VITAMIN D Lab Routine Vitamin D deficiency 03/21/2024 10:59 AM EDT URIC ACID Lab Routine Gouty arthritis 03/21/2024 10:59 AM EDT Scheduled Procedures Name Priority Associated [...] Influenza Vaccine (FLU shot) (#1) 2024 HbA1c 04/01/2024 10/01/2023, 10/06, 03/20/2022, Additional history exists Albumin/Creatinine Ratio 09/30/202409/30/2 024, 10/24/2022, 03/25/2022, Additional history exists GFR 09/30/2024 10/01/2023, 10/06, 03/20/2022, Additional history exists Depression Screening 10/04/2024 10/05/2023 Diabetic Eye Exam 11/29/2024 11/30/2023, , 03/03/2022, Additional history exists DTap/Tdap Vaccines (2 - Td or Tdap) 06/18/2025 06/18/2015, 06/18/2010, 01/27/1996 DXA Scan Discontinued 09/14/2017, 12/2014, 05/10/2012, Additional history exists Colonoscopy Discontinued 11/24/2017, 11/06, 11/16/2014, Additional history exists RETIRED - COLONOSCOPY-EVERY 5 YRS AGES 18-100 Discontinued 11/24/2017, 11/24/2017, 11/16/2014, Additional history exists Pneumococcal Vaccine: 65+ Years Completed 07/16/2018, 06/26/2016 VITAMIN D LEVEL ONCE IN A LIFETIME-USE SMARTSET# [id number] Completed 10/01/2023, 08/04/2022, 11/04/2014, Additional history exists HPV (Gardasil) Vaccine Aged [...] Date/Time Associated Diagnosis Comments DIFFERENTIAL, AUTOMATED Routine 03/21/2024 10:59 AM EDT HTN, goal below 130/80 CBC Routine 03/21/2024 10:59 AM EDT HTN, goal below 130/80 CBC Routine 03/21/2024 10:59 AM EDT HTN, goal below 130/80 documented in this encounter Results * (ABNORMAL) DIFFERENTIAL, AUTOMATED (03/21/2024 10:59 AM EDT) WBC 14.79(H) 4.00 - 10.80 K/uL 03/21/2024 11:11 AM EDT [facility] Neutrophils % 72.2 40.0 - 75.0 % 03/21/2024 11:11 AM EDT [facility] Lymphocytes % 17.5(L) 18.0 - 42.0 % 03/21/2024 11:11 AM EDT [facility] Monocytes % 8.5 1.0 - 11.0 % 03/21/2024 11:11 AM EDT [facility] Eosinophils % 1.6 0.0 - 6.0 % 03/21/2024 11:11 AM EDT [facility] Basophils % 0.2 0.0 - 2.0 % 03/21/2024 11:11 AM EDT [facility] Absolute Neutrophils 10.68(H) 1.80 - 7.70 K/uL 03/21/2024 11:11 AM EDT [facility] Absolute Lymphocytes 2.59 1.00 - 4.80 K/ul 03/21/2024 11:11 AM EDT [facility] Absolute Monocytes 1.26(H) 0.00 - 1.10 K/uL 03/21/2024 11:11 AM EDT [facility] Absolute Eosinophils 0.23 0.00 - 0.70 K/uL 03/21/2024 11:11 AM EDT [facility] Absolute Basophils 0.03 0.00 - 0.20 K/uL 03/21/2024 11:11 AM EDT [facility] Blood Venous blood specimen / Unknown Venipuncture / Unknown 03/21/2024 10:59 AM EDT 03/21/2024 10:59 AM EDT Alejandro Simmons DO LAB BLOOD ORDER [facility] [address] [place] [address] * (ABNORMAL) CBC (03/21/2024 10:59 AM EDT) [facility] Signature WBC 14.79(H) 4.00 - 10.80 K/uL 03/21/2024 11:11 AM EDT [facility] RBC 4.39 3.85 - 5.15 M/uL 03/21/2024 11:11 AM EDT [facility] HGB 13.0 12.0 - 15.3 g/dL 03/21/2024 11:11 AM EDT [facility] HCT 40.4 36.0 - 45.2 % 03/21/2024 11:11 AM EDT [facility] MCV 92.0 81.5 - 97.5 fL 03/21/2024 11:11 AM EDT [facility] MCH 29.6 27.0 - 34.0 pg 03/21/2024 11:11 AM EDT [facility] MCHC 32.2 32.0 - 36.0 g/dL 03/21/2024 11:11 AM EDT [facility] RDW 12.7 11.5 - 15.5 % 03/21/2024 11:11 AM EDT [facility] PLT 366 140 - 400 K/uL 03/21/2024 11:11 AM EDT [facility] MPV 9.4 6.6 - 11.1 fL 03/21/2024 11:11 AM EDT [facility] Blood Venous blood specimen / Unknown Venipuncture / Unknown 03/21/2024 10:59 AM EDT 03/21/2024 10:59 AM EDT Alejandro Simmons DO LAB BLOOD ORDER [facility] [address] [facility] [place] [address] documented in this encounter Visit Diagnoses Diagnosis HTN, goal below 130/80 Unspecified essential hypertension Dyslipidemia, goal LDL below 100 Other and unspecified hyperlipidemia Dyslipidemia Other and unspecified hyperlipidemia Diabetes mellitus without complication (HCC) Type II or unspecified type diabetes mellitus without mention of complication, not stated as uncontrolled Vitamin D deficiency Unspecified vitamin D deficiency Gouty arthritis Gouty arthropathy, unspecified documented in this encounter Care Teams Key Holder Relationship Specialty Start Date End Date Alejandro Simmons DO [address] [place] [address] PCP - General Family Medicine 07/07/19 documented as of this encounter
[2024-09-06] MEDS: LABETALOL HCL IV 5 MG/ML 20ML IV STA (05:29)
[2024-09-06] MEDS ORDERED: ACETAMINOPHEN 500 MG TAB PO SCH (06:00)
[2024-09-06 06:16] LABS: Basophils # (auto) 0.05 K/uL (0.00-0.20); Basophils % (auto) 0.4 %; Eosinophils # (auto) 0.31 K/uL (0.00-0.50); Eosinophils % (auto) 2.2 %; Hematocrit (blood only) 36.9 % (37.0-47.0); Immature Granulocytes # (auto) 0.07 K/uL (0.01-0.20); Immature Granulocytes % (auto) 0.5 %; Lymphocytes # (auto) 1.78 K/uL (1.20-3.40); Lymphocytes % (auto) 12.9 %; Mean Corpuscular Hgb Conc 32.5 g/dL (32.0-36.0); Mean Corpuscular Volume 89.1 fL (80.0-100.0); Monocytes # (auto) 1.23 K/uL (0.11-0.59); Monocytes % (auto) 8.9 %; Neutrophils % (auto) 75.1 %; Platelet Count 345 K/uL (130-400); RDW Coefficient of Variation 13.6 % (11.5-14.5); RDW Standard Deviation 44.8 fL (36.4-46.3); Red Blood Count 4.14 M/uL (4.20-5.40); White Blood Count 13.84 K/ul (4.8-10.8)
[2024-09-06 06:22] LABS: Calcium 9.1 mg/dl (8.6-10.3); Magnesium 1.7 mg/dl (1.7-2.4); Potassium 3.5 mmol/L (3.5-5.1)
[2024-09-06 06:27] LABS: BUN Creatinine Ratio 33.3 (10-20); Creatinine Clr Calc Pharmacy 79.1 ml/min
[2024-09-06 06:49] LABS: Troponin I High Sensitivity 6.2 pg/ml (0-14)
[2024-09-06 07:28] LABS: Estimated Average Glucose 146 mg/dl; Hemoglobin A1C 6.7 % (4.5-5.6)
--- NOTE | 2024-09-06 08:03 | Electrocardiogram Report ---
Test Reason : Blood Pressure : */* mmHG Vent. Rate : 86 BPM Atrial Rate : 86 BPM P-R Int : 160 ms QRS Dur : 84 ms QT Int : 346 ms P-R-T Axes : 27 -41 67 degrees QTcB Int : 414 ms Sinus rhythm with frequent Premature atrial complexes Left anterior fascicular block Low voltage QRS Old Anterior infarct (cited on or before 26-Dec-2023) Abnormal ECG When compared with ECG of 26-Dec-2023 11:43, Premature atrial complexes now present Reconfirmed by Rico Chase ([id number]) on 09/06/2024 8:11:59 AM Referred By: REFERRED SELF Confirmed By: Rico Chase
--- NOTE | 2024-09-06 08:10 | Electrocardiogram Report ---
Test Reason : Blood Pressure : */* mmHG Vent. Rate : 67 BPM Atrial Rate : * BPM P-R Int : * ms QRS Dur : 140 ms QT Int : 406 ms P-R-T Axes : * -28 68 degrees QTcB Int : 429 ms Sinus rhythm with frequent Premature atrial complexes Old Anterolateral infarct (cited on or before 26-Dec-2023) Abnormal ECG When compared with ECG of 05-Sep-2024 19:38, No significant change Confirmed by Rico Chase ([id number]) on 09/06/2024 8:10:06 AM Referred By: REFERRED SELF Confirmed By: Rico Chase
[2024-09-06] MEDS: INSULIN ASPART PER UNIT CHARGE SC SCH (08:41)
[2024-09-06] MEDS: ARTIFICIAL TEARS OP SCH (08:42)
[2024-09-06] MEDS: SODIUM CHLORIDE 0.65% NA SOLN 45 ML (OCEAN) SCH (08:45)
[2024-09-06] MEDS: AZELASTINE HCL 0.1% NASAL 200 SPRAYS/27,400 MCG BTL SCH (08:46)
[2024-09-06] MEDS: LISINOPRIL/HCTZ 20/12.5MG 1 TAB TAB PO SCH (08:46)
[2024-09-06] MEDS: ACETAMINOPHEN 325 MG TAB PO SCH (08:47)
[2024-09-06] MEDS: CEROVITE ADV FORMULA TAB PO SCH (08:47)
[2024-09-06] MEDS: MAGNESIUM SULFATE / D5W 1 GM/100 ML BAG IV ONE (08:47)
[2024-09-06] MEDS: POTASSIUM CHLORIDE CRTAB 20 MEQ TABCR PO ONE (08:47)
[2024-09-06] MEDS: CLOPIDOGREL BISULFATE 75 MG TAB PO SCH (08:50)
--- NOTE | 2024-09-06 09:06 | Cardiology Consultation ---
Date of Consultation September 06, 2024 Assessment & Plan (1) Atrial ectopy: (2) Palpitations: (3) History of embolic stroke: Plan Patient admitted with irregular pulse at home, concerns for atrial fibrillation. EKG x2 since admission demonstrating NSR No definitive atrial fibrillation noted on telemetry. Brother in law has strips from [employer] - Difficult to definitively diagnose atrial fib based on one lead. Appears to have P waves and consistent with NSR with ectopy. Long discussion about treatment options of PAC's vs atrial fib and history of embolic stroke. She recently met with EP to discuss possible Loop recorder implant to identify definitive atrial fibrillation. She has been on Plavix since December 2023 at time of her stroke. She reports allergy to ASA - causing a Rash. Consider low dose beta sergo to suppress atrial ectopy and Loop recorder? Could also consider initiation of Eliquis, but would likely not recommend Eliquis and Plavix dual therapy in this elderly patient. (Not able to take ASA) Further recommendations pending review and discussion with Dr. Montanez Case discussed with Dr. Montanez I spent a total of 65 minutes on the date of service in preparation, delivery, and documentation of the care provided to this patient, excluding any time spent in the performance of separately billed services. Carole Pendleton PA-C Department of Cardiology, [facility] This chart was completed in part utilizing Speech Voice Recognition Software. Grammatical errors, random word insertions, pronoun errors, and incomplete sentences are an occasional consequence of this system due to software limitations, ambient noise, and hardware issues. Any formal questions or concerns about the content, text, or information contained within the body of this dictation should be directly addressed to the provider for clarification. Supervising Physician Co-Signing Physician Notes I have personally performed a history and physical examination on the patient. I have reviewed the advance practitioner's documentation, and I agree with, and take responsibility for the plan of care. 83-year-old female presented to the ER due to concerns regarding paroxysmal atrial fibrillation. History of CVA (possibly embolic) in 2023. Treated with single antiplatelet therapy, clopidogrel, since that time without recurrent neurologic events. Patient performed [facility]el[facility] assessment prior to admission demonstrating sinus rhythm with PACs. There is significant baseline artifact limiting interpretation. Since admission ECGs and telemetry demonstrating sinus rhythm with PACs. No definitive evidence of atrial fibrillation. Recommend continue single antiplatelet therapy at this time. Loop recorder will be implanted tomorrow for long-term surveillance. Outpatient cardiology follow-up as scheduled. I spent a total of 40 minutes on the date of service in preparation, delivery, and documentation of the care provided to this patient, excluding any time spent in the performance of separately billed services. Eder Montanez DO, [facility] History of Present Illness Reason for Consultation: Palpitations Requesting Physician: Nuris Hospitalist Attending Physician: Dr. Montanez History of Present Illness Patient is an 83 year old female who presented to [facility] yesterday with weakness and an "irregular" pulse. Her smart watch reported possible atrial fibrillation along with her brother in bar [place]. Due to symptoms, she was brought to the ER by her brother in , who is a retired [facility] Physician. Upon arrival, EKG demonstrated NSR with PAC's. Telemetry without definitive atrial fibrillation. She has been on high dose prednisone for gouty arthritis. Weaning off. At time of consult, patient resting in bed comfortably. Currently receiving magnesium for low levels. Potassium low normal today as well. She takes chronic lisinopril/hctz but does not take potassium or magnesium supplements. She denies acute cardiac complaints. No chest pain, dyspnea. No palpitations. no dizziness or lightheadedness. Mild intermittent edema noted. History includes: 1. 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 No definitive atrial fibrillation or flutter -Met with EP August 2023 and Loop discussed 2. Gouty arthritis with recent flairs - on prednisone 3. HTN 4. Dyslipidemia Allergies Allergy/AdvReac Type Severity Reaction Status Date / Time adhesive Allergy Severe REDNESS, Verified 09/05/24 20:21 BLISTERS, SKIN TEARS OFF Iodinated Contrast Media Allergy Severe ANAPHYLAXIS Verified 09/05/24 20:21 aspirin Allergy Intermediate RASH Verified 09/05/24 20:21 grass pollen-perennial rye, Allergy Intermediate SNEEZING, Verified 09/05/24 20:21 standar CONGESTION iodine Allergy Intermediate TOPICAL Verified 09/05/24 20:21 (BETADINE)- WELTS mold Allergy Intermediate SNEEZING, Verified 09/05/24 20:21 CONGESTION pollen extracts Allergy Intermediate SNEEZING, Verified 09/05/24 20:21 CONGESTION Sulfa (Sulfonamide Allergy Intermediate RASH PER Verified 09/05/24 20:21 Antibiotics) [facility] allopurinol AdvReac Intermediate NAUSEA/VOMI Verified 09/05/24 20:21 TING colchicine AdvReac Intermediate Diarrhea Verified 09/05/24 20:21 oxycodone AdvReac Intermediate GI UPSET Verified 09/05/24 20:21 amlodipine AdvReac Mild Flushing Verified 09/05/24 20:21 Home Medications Medication Instructions Recorded Confirmed Type azelastine 137 mcg (0.1 %) nasal 2 spray intranasal BID 03/02/22 09/05/24 History spray cholecalciferol (vitamin D3) 25 25 mcg PO QPM 03/02/22 09/05/24 History mcg (1,000 unit) tablet (Vitamin D3) lisinopril 20 1 tab PO BID 03/02/22 09/05/24 History mg-hydrochlorothiazide 12.5 mg tablet acetaminophen 650 mg 1,300 mg PO Q8H 12/26/23 09/05/24 History tablet,extended release (Tylenol 8 Hour) fexofenadine 180 mg tablet 180 mg PO HS 12/26/23 09/05/24 History ketotifen fumarate 0.025 % (0.035 1 drp ophthalmic (eye) BID PRN 12/26/23 09/05/24 History %) eye drops (Zaditor) ITCHY EYES lklknmmebuvz-zqdnnmbi-jewqgc tablet 1 tab PO DAILY 12/26/23 09/05/24 History propylene glycol 0.6 % eye drops 1 drp ophthalmic (eye) BID 12/26/23 09/05/24 History sodium chloride 0.65 % nasal spray 1 spray intranasal BID 12/26/23 09/05/24 History aerosol ([place] Saline) clopidogrel 75 mg tablet 75 mg PO QAM #60 tabs 12/27/23 09/05/24 Rx coenzyme Q10 200 mg capsule (Co 200 mg PO QPM 09/05/24 09/05/24 History Q-10) rosuvastatin 20 mg tablet 20 mg PO QPM 09/05/24 09/05/24 History Patient History Medical History Left hand weakness Gouty arthritis Dyslipidemia DM (diabetes mellitus), type 2 Rhinitis Hypertension Gout Surgical History H/O cataract removal with insertion of prosthetic lens H/O total hysterectomy History of tonsillectomy Family History Other Diabetes Stroke Social History Smoking Status: Former smoker Smoking End Date: 30+ years ago; Hx Alcohol Use: No Hx Substance Use: No Preferred Language: Panamanian Communication Ability: Effective [employer] Fund Accountant Required: No Beliefs That Will Affect Care: None Current Living Situation: Alone Feels Safe at Home: Yes Safety Concerns: Feels Safe At This Time Assistive Devices: Cane and Glasses Assistive Devices Comment: cane once in a while Review of Systems Review of Systems: All systems reviewed & are unremarkable except as noted in HPI & below Physical Exam Constitutional: WD/WN, vitals as above well developed and + obese Neck: trachea midline, no thyromegaly Respiratory: normal respiratory effort, lungs clear to auscultation Cardiovascular: Rate/Rhythm: regular rate and regular rhythm Heart Sounds: normal S1 and normal S2; no murmur Vessels: no JVD Extremities: no edema Gastrointestinal (Abdomen): normal bowel sounds, soft, nontender, no hepatosplenomegaly Musculoskeletal: no cyanosis or clubbing, extremities motor strength 5/5 Skin: no rashes, warm and dry Neurologic: PERRL, EOMI, accommodation nl, no face palsy, no dysarthria Results & Data Vital Signs (Past 12 Hours) Vital Signs Temp Pulse Pulse Resp BP BP BP 09/06/24 08:01 36.7 C 72 19 179/74 H 09/06/24 04:13 67 151/70 H 09/06/24 03:49 64 09/06/24 03:38 36.6 C 62 16 184/80 H 09/06/24 02:00 61 18 149/73 H 09/06/24 01:09 63 17 148/70 H 09/06/24 00:30 68 19 154/66 H 09/05/24 23:40 80 09/05/24 22:30 68 19 144/53 H 09/05/24 22:00 71 21 157/63 H 09/05/24 22:00 70 15 157/63 H 09/05/24 21:30 74 20 140/65 09/05/24 21:00 69 18 144/61 H Pulse Ox O2 Del Method 09/06/24 08:01 94 Room Air 09/06/24 04:13 09/06/24 03:49 09/06/24 03:38 96 Room Air 09/06/24 02:00 93 Room Air 09/06/24 01:09 94 Room Air 09/06/24 00:30 93 Room Air 09/05/24 23:40 09/05/24 22:30 96 Room Air 09/05/24 22:00 94 Room Air 09/05/24 22:00 94 Room Air 09/05/24 21:30 96 Room Air 09/05/24 21:00 94 Room Air Laboratory Results Cardiac Enzymes 09/05/24 09/06/24 Range/Units 19:47 05:51 AST 14 (13-39) U/L Troponin I High Sens 6.2 6.2 (0-14) pg/ml CBC 09/05/24 09/06/24 Range/Units 19:47 05:51 WBC 16.52 H 13.84 H (4.8-10.8) K/ul RBC 4.29 4.14 L (4.20-5.40) M/uL Hgb 12.3 12.0 (12.0-16.0) g/dl Hct 38.4 36.9 L (37.0-47.0) % Plt Count 417 H 345 (130-400) K/uL Neut # (Auto) 11.86 H 10.40 H (1.40-6.50) K/uL Lymph # (Auto) 2.71 1.78 (1.20-3.40) K/uL Schuyler # (Auto) 1.49 H 1.23 H (0.11-0.59) K/uL Eos # (Auto) 0.32 0.31 (0.00-0.50) K/uL Baso # (Auto) 0.06 0.05 (0.00-0.20) K/uL Comprehensive Metabolic Panel 09/05/24 09/06/24 Range/Units 19:47 05:51 Sodium 137 140 (136-145) mmol/L Potassium 4.0 3.5 (3.5-5.1) mmol/L Chloride 100 106 (98-107) mmol/L Carbon Dioxide 28 27 (21-32) mmol/L BUN 31 H 20 (6-23) mg/dl Creatinine 0.75 0.60 (0.6-1.2) mg/dl Glucose 150 H 118 H (70-99(Fasting)) mg/dl Calcium 9.6 9.1 (8.6-10.3) mg/dl AST 14 (13-39) U/L ALT 19 (7-52) U/L Alkaline Phosphatase 65 (34-104) U/L Total Protein 7.3 (6.0-8.3) gm/dl Albumin 4.1 (3.4-5.0) gm/dl Intake and Output 09/05/24 09/06/24 09/06/24 22:59 06:59 14:59 Intake Total 500 / 500 Balance 500 / 500 Intake: IV 500 / 500 Sodium Chloride 0.9% 500 ml @ 500 / 500 999 mls/hr IV .Q31M ONE Rx#: [id number] Other: # Unmeasured Voids 1 Weight 98.7 kg 95.3 kg Weight Measurement Method Chair [facility] Diagnostic Findings Telemetry reviewed: NSR, with PAC's. No definitive atrial fibrillation. EKG reviewed from admission 09/05 at 19:38: NSR with PAC's LAFB No significant change from previous Repeat EKG from 09/06/24 at 3:30 AM:: NSR with PAC's No significant change. Chest X-Ray 09/05/24 20:10 IMPRESSION: No evidence of acute cardiopulmonary process. Prior data reviewed: Echo report reviewed from December 2023: Normal LVEF at 55-60% Normal wall motion Grade I diastolic dysfunction No interatrial shunt observed with saline contrast ZIO report reviewed dated December 2023: Final Interpretation Patient had a min HR of 44 bpm, max HR of 179 bpm, and avg HR of 65 bpm. Predominant underlying rhythm was Sinus Rhythm. 36 Supraventricular Tachycardia runs occurred, the run with the fastest interval lasting 4 beats with a max rate of 179 bpm, the longest lasting 15.4 secs with an avg rate of 112 bpm. Isolated SVEs were occasional (3.0%, 34418), SVE Couplets were rare (<1.0%, 639), and SVE Triplets were rare (<1.0%, 149). Isolated VEs were rare (<1.0%, 3577), VE Couplets were rare (<1.0%, 3), and VE Triplets were rare (<1.0%, 1). Ventricular Bigeminy and Trigeminy were present. No patient triggered events were submitted. No symptoms were reported. No definite atrial fibrillation or atrial flutter episodes were observed. Medications Administered Current Inpatient Medications Acetaminophen (Acetaminophen 325 Mg Tab) 1,300 mg PO Q8H MEJIA Stop: 10/06/24 07:59 Last Admin: 09/06/24 08:47 Dose: 1,300 mg Artificial Tears (Artificial Tears) 1 drops OP BID MEJIA Stop: 10/06/24 08:59 Last Admin: 09/06/24 08:42 Dose: 1 drops Azelastine HCl (Azelastine Hcl 0.1% Nasal 200 Sprays/27,400 Mcg Btl) 2 sprays NA BID MEJIA Stop: 10/06/24 08:59 Last Admin: 09/06/24 08:46 Dose: 2 sprays Clopidogrel Bisulfate (Clopidogrel Bisulfate 75 Mg Tab) 75 mg PO QAM MEJIA Stop: 10/06/24 08:59 Last Admin: 09/06/24 08:50 Dose: 75 mg Dextrose (Dextrose 50% 50 Ml Syringe) 25 - 50 ml IV UD PRN; Protocol PRN Reason: Hypoglycemia Protocol Stop: 10/06/24 03:11 Fexofenadine HCl (Fexofenadine Hcl 180 Mg Tab) 180 mg PO HS MEJIA Stop: 10/06/24 20:59 Glucagon (Glucagon For Inj 1 Mg Vial) 1 mg SQ UD PRN; Protocol PRN Reason: Hypoglycemia Protocol Stop: 10/06/24 03:11 Glucose (Glucose 40% Gel 15 Gm Tube) 15 - 30 gm PO UD PRN; Protocol PRN Reason: Hypoglycemia Protocol Stop: 10/06/24 03:11 Glucose (Glucose 10 Tab/Tube) 4 - 8 tab PO UD PRN; Protocol PRN Reason: Hypoglycemia Protocol Stop: 10/06/24 03:11 Lisinopril/HCTZ (Lisinopril/Hctz 20/12.5mg 1 Tab Tab) 1 tab PO BID MEJIA Stop: 10/06/24 08:59 Last Admin: 09/06/24 08:46 Dose: 1 tab Insulin Aspart (Insulin Aspart Per Unit Charge) 0 units SC ACHS MEJIA Stop: 10/06/24 07:29 Last Admin: 09/06/24 12:40 Dose: Not Given Miscellaneous (Carbohydrates For Hypoglycemia ) 15 - 30 gm PO UD PRN PRN Reason: Hypoglycemia Protocol Stop: 10/06/24 03:11 Multivitamins/Minerals (Cerovite Adv Formula Tab) 1 tab PO DAILY MEJIA Stop: 10/06/24 08:59 Last Admin: 09/06/24 08:47 Dose: 1 tab Nitroglycerin (Nitroglycerin Sl 0.4 Mg/Tab Tab) 0.4 mg SL Q5M PRN PRN Reason: Chest Pain Stop: 10/06/24 03:11 Polyethylene Glycol (Polyethylene (Miralax) 17 Gm Pack) 17 gm PO DAILY PRN PRN Reason: Constipation Stop: 10/06/24 03:11 Rosuvastatin Calcium (Rosuvastatin Calcium 20 Mg Tab) 20 mg PO QPM MEJIA Stop: 10/06/24 20:59 Sodium Chloride (Sodium Chloride 0.65% Na Soln 45 Ml (Sully)) 1 sprays NA BID MEJIA Stop: 10/06/24 08:59 Last Admin: 09/06/24 08:45 Dose: Not Given Vitamin D (Cholecalciferol 25 Mcg (1000 Units) Tab) 25 mcg PO QPM MEJIA Stop: 10/06/24 20:59
--- NOTE | 2024-09-06 13:03 | Hospitalist Progress Note ---
Date of Service September 06, 2024 Assessment & Plan (1) Weakness: Plan: 83-year-old female with past medical history significant for dyslipidemia, gouty arthritis, diabetes, history of CVA, hypertension, PVCs, diverticulosis of colon, osteoporosis, history of uterine cancer, presents with weakness and possible A-fib. In December 2023 patient had a stroke. At that time she was presented with left hand weakness and MRI showed tiny infarct in the right lateral frontal lobe. Patient is on Plavix and statin. Her left hand weakness has resolved. Patient had a ZIO monitor in January 2024 for couple of weeks and it did not show any A-fib. She was followed with [facility] and there is a plan for loop recorder. Patient's hygflma-vp-hiy is a retired [facility] physician who brought the patient to ER today. Last couple days patient was feeling weak and tired and she was feeling skipped beats. Her lelqdzf-hv-glx who is a retired physician came and checked on her and on iPhone front desk monitor Patient rhythm was reading as A-fib. This reason she was brought to the hospital for further workup. Patient currently resting comfortably and hemodynamically stable. Denies any headache. No dizziness. No blurred vision. No earache. Has some runny nose from her sinuses. No sore throat. No cough. No difficulty swallowing. Appetite is okay. Denies any chest pain or shortness of breath. No nausea or vomiting. No abdominal pain. Normal bowel and bladder movements. Denies any blood in the stools. No burning micturition. No hematuria. No rash. Weakness and tiredness Suspected A-fib Prior ZIO monitor in 2023 showed PACs, no definite atrial fibrillation or flutter. Discussion about loop at the time as well --ECHO: Left ventricle systolic function is normal. EF 55 to 60%. Left atrium size is normal. No significant valvular pathology --Normal TSH --EKG showed sinus rhythm with frequent PACs Monitor and replete electrolytes as needed Await cardiology input Abnormal urinalysis Asymptomatic Urine culture pending Will hold off on any antibiotics for now H/O CVA Continue Plavix and statin Hypertension Continue lisinopril hydrochlorothiazide monitor Hyperlipidemia continue statin DM II HbA1c 6.7 Not on medications Obesity BMI 38.4 DVT Px: SCDs for now Code Status Full code Disposition Likely discharge home when stable Admission and Anticipated Discharge Date Admission Date: September 05, 2024 Subjective Patient is seen and examined at bedside Offers no complaints today Denies any chest pain, palpitations, dyspnea, dizziness, nausea, vomiting, abdominal pain Review of Systems Review of Systems: All systems reviewed & are unremarkable except as noted in Subjective Physical Exam Physical Exam: Physical Exam: Vitals signs as noted above General Appearance:Obese, no apparent distress Head: normocephalic, Atraumatic Eyes: normal inspection, EOMI Neck: supple, Trachea midline Respiratory/Chest: Normal breath sounds, CTA, No accessory muscle use Cardiovascular: S1, S2, No murmur Abdomen/GI:Soft, Non tender, Bowel sounds present Extremities/Musculoskeletal:normal inspection, no edema Neurologic/Psych:AAOX3, grossly no focal neurological deficits Skin: normal color, warm Results & Data Results & Data Vital Signs (Past 12 Hours) Vital Signs Temp Pulse Pulse Resp BP BP BP 09/06/24 11:43 36.5 C 69 20 150/74 H 09/06/24 08:01 36.7 C 72 19 179/74 H 09/06/24 04:13 67 151/70 H 09/06/24 03:49 64 09/06/24 03:38 36.6 C 62 16 184/80 H 09/06/24 02:00 61 18 149/73 H 09/06/24 01:09 63 17 148/70 H Pulse Ox O2 Del Method 09/06/24 11:43 94 Room Air 09/06/24 08:01 94 Room Air 09/06/24 04:13 09/06/24 03:49 09/06/24 03:38 96 Room Air 09/06/24 02:00 93 Room Air 09/06/24 01:09 94 Room Air Laboratory Results Short CBC 09/05/24 09/06/24 Range/Units 19:47 05:51 WBC 16.52 H 13.84 H (4.8-10.8) K/ul Hgb 12.3 12.0 (12.0-16.0) g/dl Hct 38.4 36.9 L (37.0-47.0) % Plt Count 417 H 345 (130-400) K/uL BMP 09/05/24 09/06/24 19:47 05:51 Sodium 137 140 Potassium 4.0 3.5 Chloride 100 106 Carbon Dioxide 28 27 BUN 31 H 20 Creatinine 0.75 0.60 Glucose 150 H 118 H Calcium 9.6 9.1 Liver Function 09/05/24 Range/Units 19:47 Total Bilirubin 0.3 (0.2-1.0) mg/dl AST 14 (13-39) U/L ALT 19 (7-52) U/L Alkaline Phosphatase 65 (34-104) U/L Albumin 4.1 (3.4-5.0) gm/dl Urine 09/05/24 Range/Units 21:33 Urine Color Yellow Urine Appearance Clear (Clear) Urine pH 5.5 (4.5-7.5) Ur Specific [place] 1.010 (1.000-1.030) Urine Protein Negative (Negative) Urine Glucose (UA) Negative (Negative)
[2024-09-06] MEDS ORDERED: NON-FORMULARY MEDICATION (Coenzyme Q10 [Co Q-10] 200 mg Capsule) PO SCH (21:00)
[2024-09-06] MEDS: CHOLECALCIFEROL 25 MCG (1000 UNITS) TAB PO SCH (21:01)
[2024-09-06] MEDS: FEXOFENADINE HCL 180 MG TAB PO SCH (21:01)
[2024-09-06] MEDS: ROSUVASTATIN CALCIUM 20 MG TAB PO SCH (21:01)
[2024-09-07 07:01] LABS: Hematocrit (blood only) 37.2 % (37.0-47.0); Hemoglobin 11.8 g/dl (12.0-16.0); Mean Corpuscular Hemoglobin 28.4 pg (25.0-34.0); Mean Corpuscular Hgb Conc 31.7 g/dL (32.0-36.0); Mean Corpuscular Volume 89.4 fL (80.0-100.0); Mean Platelet Volume 8.8 fL (9.4-12.4); Platelet Count 341 K/uL (130-400); RDW Coefficient of Variation 13.7 % (11.5-14.5); RDW Standard Deviation 44.9 fL (36.4-46.3); Red Blood Count 4.16 M/uL (4.20-5.40)
[2024-09-07 07:17] LABS: BUN Creatinine Ratio 23.4 (10-20); Calcium 9.1 mg/dl (8.6-10.3); Creatinine Clr Calc Pharmacy 74.2 ml/min; Magnesium 1.8 mg/dl (1.7-2.4); Potassium 3.9 mmol/L (3.5-5.1)
[2024-09-07] MEDS: MAGNESIUM OXIDE 400 MG TAB PO SCH (09:46)
[2024-09-07] MEDS: POTASSIUM CHLORIDE 10 MEQ TABCR PO SCH (09:46)
--- NOTE | 2024-09-07 09:48 | Electrocardiogram Report ---
Test Reason : Blood Pressure : */* mmHG Vent. Rate : 63 BPM Atrial Rate : 63 BPM P-R Int : 172 ms QRS Dur : 92 ms QT Int : 394 ms P-R-T Axes : 45 -23 76 degrees QTcB Int : 403 ms Sinus rhythm with Premature atrial complexes Abnormal ECG When compared with ECG of 06-Sep-2024 03:30, Borderline criteria for Anterolateral infarct are no longer Present Confirmed by Rico Chase ([id number]) on 09/07/2024 9:48:34 AM Referred By: REFERRED SELF Confirmed By: Rico Chase
[2024-09-07] MEDS ORDERED: LIDOCAINE 1% LOCAL 20 ML VIAL ONE (12:32)
--- NOTE | 2024-09-07 12:42 | History & Physical Bridge Note ---
Date of Service September 07, 2024 History & Physical Bridge Note I have examined the patient, reviewed the History & Physical and in the interval since the performance of the History & Physical I have noted the following changes of clinical significance: pt with CVA concerning for etiology of pAF so she was recommended a loop insertion prior to hospital discharge. Discussed the procedure and potential risks which include but not limited to bleeding and infection; consents signed.
[2024-09-07] MEDS: CLINDAMYCIN 900 MG/D5W 50 ML BAG IV ONE (12:58)
--- NOTE | 2024-09-07 12:59 | Hospitalist Progress Note ---
Date of Service September 07, 2024 Assessment & Plan (1) Weakness: Plan: 83-year-old female with past medical history significant for dyslipidemia, gouty arthritis, diabetes, history of CVA, hypertension, PVCs, diverticulosis of colon, osteoporosis, history of uterine cancer, presents with weakness and possible A-fib. In December 2023 patient had a stroke. At that time she was presented with left hand weakness and MRI showed tiny infarct in the right lateral frontal lobe. Patient is on Plavix and statin. Her left hand weakness has resolved. Patient had a ZIO monitor in January 2024 for couple of weeks and it did not show any A-fib. She was followed with [facility] and there is a plan for loop recorder. Patient's eocguhe-er-yht is a retired [facility] physician who brought the patient to ER today. Last couple days patient was feeling weak and tired and she was feeling skipped beats. Her oazuybz-mv-mtn who is a retired physician came and checked on her and on iPhone equipment monitor phototypesetting Patient rhythm was reading as A-fib. This reason she was brought to the hospital for further workup. Patient currently resting comfortably and hemodynamically stable. Denies any headache. No dizziness. No blurred vision. No earache. Has some runny nose from her sinuses. No sore throat. No cough. No difficulty swallowing. Appetite is okay. Denies any chest pain or shortness of breath. No nausea or vomiting. No abdominal pain. Normal bowel and bladder movements. Denies any blood in the stools. No burning micturition. No hematuria. No rash. Weakness and tiredness Suspected A-fib Prior ZIO monitor in 2023 showed PACs, no definite atrial fibrillation or flutter. Discussion about loop at the time as well --ECHO: Left ventricle systolic function is normal. EF 55 to 60%. Left atrium size is normal. No significant valvular pathology --Normal TSH --EKG showed sinus rhythm with frequent PACs Monitor and replete electrolytes as needed Appreciate cardiology input S/P Loop Recorder implant by today Advised to follow-up with cardiology on discharge Abnormal urinalysis Asymptomatic Urine culture pinpoint growth Will hold off on any antibiotics for now Advised to follow-up with PCP for culture results and further management H/O CVA Continue Plavix and statin Hypertension Continue lisinopril hydrochlorothiazide monitor Hyperlipidemia continue statin DM II HbA1c 6.7 Not on medications Obesity BMI 38.4 DVT Px: SCDs for now Code Status Full code Disposition Plan to discharge home today Admission and Anticipated Discharge Date Admission Date: September 05, 2024 Subjective Patient is seen and examined at bedside States feeling well Discussed with patient's family at bedside No new complaints today Plan for loop recorder placement today Denies any chest pain, palpitations, dyspnea, dizziness, nausea, vomiting, abdominal pain, dysuria, hematuria Review of Systems Review of Systems: All systems reviewed & are unremarkable except as noted in Subjective Physical Exam Physical Exam: Physical Exam: Vitals signs as noted above General Appearance:Obese, no apparent distress Head: normocephalic, Atraumatic Eyes: normal inspection, EOMI Neck: supple, Trachea midline Respiratory/Chest: Normal breath sounds, CTA, No accessory muscle use Cardiovascular: S1, S2, No murmur Abdomen/GI:Soft, Non tender, Bowel sounds present Extremities/Musculoskeletal:normal inspection, no edema Neurologic/Psych:AAOX3, grossly no focal neurological deficits Skin: normal color, warm Results & Data Results & Data Vital Signs (Past 12 Hours) Vital Signs Temp Pulse Pulse Resp BP Pulse Ox O2 Del Method 09/07/24 12:50 69 14 136/54 L 96 Room Air 09/07/24 11:04 36.5 C 78 18 125/76 98 Room Air 09/07/24 07:41 36.5 C 75 19 133/80 95 Room Air 09/07/24 03:34 36.9 C 64 18 125/58 L 92 Room Air Laboratory Results Short CBC 09/07/24 Range/Units 06:35 WBC 10.50 (4.8-10.8) K/ul Hgb 11.8 L (12.0-16.0) g/dl Hct 37.2 (37.0-47.0) % Plt Count 341 (130-400) K/uL BMP 09/07/24 06:35 Sodium 138 Potassium 3.9 Chloride 103 Carbon Dioxide 30 BUN 15 Creatinine 0.64 Glucose 103 H Calcium 9.1
--- NOTE | 2024-09-07 13:10 | Operative Report ---
Post Operative Report Pre-OP diagnosis: syncope, SB Post Op Diagnosis: Same Procedure: Loop Recorder implant DOS: 09/07/2024 Surgeon: Dr. Costa Anesthesia: 12cc 1% lidocaine Blood Loss: 3 cc Complications: None Condition: Stable Abx: ancef Specimen: None Indications: 83yo F PMH HTN, HLD, Vitamin D deficiency, Osteoporosis, OA with occasional flair ups requiring prednisone, DM, CVA in 12/2023 with left hemianopsia. Pt was admitted to [facility] due to concerns of possible pAF. Due to patient's CVA she was recommended a Loop insertion prior to hospital discharge. . Description of procedure: Pt was brought into the procedure room and connected to cardiac monitoring. A time out was performed identifying patient and procedure correctly. The pt received antibiotic prior to incision. The patient was prepped and draped in a sterile fashion over the left sternal border. Then 12 cc of 1% lidocaine where given in the 4th intercostal space to the left of the sternal border. Then using the Loop insertion tool and kit the loop was inserted. Then a 4.0 vicryl interrupted suture followed by a running stitch was placed to approximate the incision and dermabond was placed. Equipment: New Device: First Aid Shot [employer] IQ EL+ [id number] SN: [id number] Parameters: Tachy 150bpm 12 beats Andrew 40bpm Pause: 3 seconds Implant Measurements: R waves 0.4mV Impression: Successful new Loop recorder insertion due to CVA Plan: Return to telemetry Can discharge later today from EP perspective She can shower tomorrow EP f/u 9 months
--- NOTE | 2024-09-07 13:56 | Cardiology Progress Note ---
Date of Service September 07, 2024 Assessment & Plan (1) Atrial ectopy: (2) Palpitations: (3) History of embolic stroke: Plan 09/06/24: Patient admitted with irregular pulse at home, concerns for atrial fibrillation. EKG x2 since admission demonstrating NSR No definitive atrial fibrillation noted on telemetry. Brother in law has strips from [employer] - Difficult to definitively diagnose atrial fib based on one lead. Appears to have P waves and consistent with NSR with ectopy. Long discussion about treatment options of PAC's vs atrial fib and history of embolic stroke. She recently met with EP to discuss possible Loop recorder implant to identify definitive atrial fibrillation. She has been on Plavix since December 2023 at time of her stroke. She reports allergy to ASA - causing a Rash. Consider low dose beta sergo to suppress atrial ectopy and Loop recorder? Could also consider initiation of Eliquis, but would likely not recommend Eliquis and Plavix dual therapy in this elderly patient. (Not able to take ASA) 09/07/24: Further review of telemetry and telemetry strips, no definitive atrial fibrillation noted upon admission or during course of hospitalization. Patient to have loop recorder today for ongoing surveillance. Resting HR currently mid 50-60's. Will not initiate beta sergo Supplement magnesium and potassium on discharge to aid with electrolytes and ectopy. F/U lab work next week Anticipate discharge later today after loop implant. Case discussed with Dr. Montanez I spent a total of 30 minutes on the date of service in preparation, delivery, and documentation of the care provided to this patient, excluding any time spent in the performance of separately billed services. Carole Pendleton PA-C Department of Cardiology, [facility] This chart was completed in part utilizing Speech Voice Recognition Software. Grammatical errors, random word insertions, pronoun errors, and incomplete sentences are an occasional consequence of this system due to software limitations, ambient noise, and hardware issues. Any formal questions or c oncerns about the content, text, or information contained within the body of this dictation should be directly addressed to the provider for clarification. Admission and Anticipated Discharge Date Admission Date: September 05, 2024 Supervising Physician Co-Signing Physician Notes I have personally performed a history and physical examination on the patient. I have reviewed the advance practitioner's documentation, and I agree with, and take responsibility for the plan of care. 83-year-old female presented to the ER due to concerns regarding paroxysmal atrial fibrillation. History of CVA (possibly embolic) in 2023. Treated with single antiplatelet therapy, clopidogrel, since that time without recurrent neurologic events. [employer] rhythm strips reviewed demonstrating sinus rhythm with PACs. Telemetry during hospitalization also demonstrating sinus rhythm with PACs. No evidence of atrial fibrillation. Proceed with loop recorder implantation today. Patient may be discharged post implantation. Routine cardiology follow-up as outpatient as scheduled. I spent a total of 20 minutes on the date of service in preparation, delivery, and documentation of the care provided to this patient, excluding any time spent in the performance of separately billed services. Eder Montanez DO, [facility] Subjective Patient resting in bed. Brother in law at bedside. Palpitations improved since admission. No atrial fibrillation noted on telemetry. Plans for Loop today Review of Systems Review of Systems: All systems reviewed & are unremarkable except as noted in HPI & below Physical Exam Constitutional: WD/WN, vitals as above well developed and + obese Neck: trachea midline, no thyromegaly Respiratory: normal respiratory effort, lungs clear to auscultation Cardiovascular: Rate/Rhythm: regular rate and regular rhythm Heart Sounds: normal S1 and normal S2; no murmur Vessels: no JVD Extremities: no edema Gastrointestinal (Abdomen): normal bowel sounds, soft, nontender, no hepatosplenomegaly Musculoskeletal: no cyanosis or clubbing, extremities motor strength 5/5 Skin: no rashes, warm and dry Neurologic: PERRL, EOMI, accommodation nl, no face palsy, no dysarthria Results & Data Vital Signs (Past 12 Hours) Vital Signs Temp Pulse Pulse Resp BP Pulse Ox O2 Del Method 09/07/24 13:42 36.7 C 66 19 112/70 95 Room Air 09/07/24 12:50 69 14 136/54 L 96 Room Air 09/07/24 11:04 36.5 C 78 18 125/76 98 Room Air 09/07/24 07:41 36.5 C 75 19 133/80 95 Room Air 09/07/24 03:34 36.9 C 64 18 125/58 L 92 Room Air Laboratory Results CBC 09/07/24 Range/Units 06:35 WBC 10.50 (4.8-10.8) K/ul RBC 4.16 L (4.20-5.40) M/uL Hgb 11.8 L (12.0-16.0) g/dl Hct 37.2 (37.0-47.0) % Plt Count 341 (130-400) K/uL Comprehensive Metabolic Panel 09/07/24 Range/Units 06:35 Sodium 138 (136-145) mmol/L Potassium 3.9 (3.5-5.1) mmol/L Chloride 103 (98-107) mmol/L Carbon Dioxide 30 (21-32) mmol/L BUN 15 (6-23) mg/dl Creatinine 0.64 (0.6-1.2) mg/dl Glucose 103 H (70-99(Fasting)) mg/dl Calcium 9.1 (8.6-10.3) mg/dl Intake and Output 09/06/24 09/07/24 09/07/24 22:59 06:59 14:59 Intake Total 120 / 460 Balance 120 / 460 Intake: Oral 120 / 360 Other: # Unmeasured Voids 2 Diagnostic Findings Telemetry reviewed: NSR with occ PAC. No sustained arrhythmias. No atrial fibrillation. EKG reviewed: sinus rhythm with PAC no acute ischemic changes. Medications Administered Current Inpatient Medications Acetaminophen (Acetaminophen 325 Mg Tab) 1,300 mg PO Q8H MEJIA Stop: 10/06/24 07:59 Last Admin: 09/07/24 08:06 Dose: 1,300 mg Artificial Tears (Artificial Tears) 1 drops OP BID MEJIA Stop: 10/06/24 08:59 Last Admin: 09/07/24 08:04 Dose: 1 drops Azelastine HCl (Azelastine Hcl 0.1% Nasal 200 Sprays/27,400 Mcg Btl) 2 sprays NA BID MEJIA Stop: 10/06/24 08:59 Last Admin: 09/07/24 08:04 Dose: 2 sprays Clopidogrel Bisulfate (Clopidogrel Bisulfate 75 Mg Tab) 75 mg PO QAM MEJIA Stop: 10/06/24 08:59 Last Admin: 09/07/24 09:03 Dose: 75 mg Dextrose (Dextrose 50% 50 Ml Syringe) 25 - 50 ml IV UD PRN; Protocol PRN Reason: Hypoglycemia Protocol Stop: 10/06/24 03:11 Fexofenadine HCl (Fexofenadine Hcl 180 Mg Tab) 180 mg PO HS MEJIA Stop: 10/06/24 20:59 Last Admin: 09/06/24 21:01 Dose: 180 mg Glucagon (Glucagon For Inj 1 Mg Vial) 1 mg SQ UD PRN; Protocol PRN Reason: Hypoglycemia Protocol Stop: 10/06/24 03:11 Glucose (Glucose 40% Gel 15 Gm Tube) 15 - 30 gm PO UD PRN; Protocol PRN Reason: Hypoglycemia Protocol Stop: 10/06/24 03:11 Glucose (Glucose 10 Tab/Tube) 4 - 8 tab PO UD PRN; Protocol PRN Reason: Hypoglycemia Protocol Stop: 10/06/24 03:11 Lisinopril/HCTZ (Lisinopril/Hctz 20/12.5mg 1 Tab Tab) 1 tab PO BID MEJIA Stop: 10/06/24 08:59 Last Admin: 09/07/24 08:04 Dose: 1 tab Insulin Aspart (Insulin Aspart Per Unit Charge) 0 units SC ACHS MEJIA Stop: 10/06/24 07:29 Last Admin: 09/07/24 09:10 Dose: Not Given Magnesium Oxide (Magnesium Oxide 400 Mg Tab) 400 mg PO QAM MEJIA Stop: 10/07/24 09:29 Last Admin: 09/07/24 09:46 Dose: 400 mg Miscellaneous (Carbohydrates For Hypoglycemia ) 15 - 30 gm PO UD PRN PRN Reason: Hypoglycemia Protocol Stop: 10/06/24 03:11 Multivitamins/Minerals (Cerovite Adv Formula Tab) 1 tab PO DAILY MEJIA Stop: 10/06/24 08:59 Last Admin: 09/07/24 08:04 Dose: 1 tab Nitroglycerin (Nitroglycerin Sl 0.4 Mg/Tab Tab) 0.4 mg SL Q5M PRN PRN Reason: Chest Pain Stop: 10/06/24 03:11 Polyethylene Glycol (Polyethylene (Miralax) 17 Gm Pack) 17 gm PO DAILY PRN PRN Reason: Constipation Stop: 10/06/24 03:11 Potassium Chloride (Potassium Chloride 10 Meq Tabcr) 10 meq PO DAILY MEJIA Stop: 10/07/24 09:29 Last Admin: 09/07/24 09:46 Dose: 10 meq Rosuvastatin Calcium (Rosuvastatin Calcium 20 Mg Tab) 20 mg PO QPM MEJIA Stop: 10/06/24 20:59 Last Admin: 09/06/24 21:01 Dose: 20 mg Sodium Chloride (Sodium Chloride 0.65% Na Soln 45 Ml (Dewar)) 1 sprays NA BID MEJIA Stop: 10/06/24 08:59 Last Admin: 09/07/24 08:04 Dose: 1 sprays Vitamin D (Cholecalciferol 25 Mcg (1000 Units) Tab) 25 mcg PO QPM MEJIA Stop: 10/06/24 20:59 Last Admin: 09/06/24 21:01 Dose: 25 mcg
--- NOTE | 2024-09-07 14:06 | Discharge Summary ---
Date of Service September 07, 2024 Admission HPI Per Admitting Provider 83-year-old female with past medical history significant for dyslipidemia, gouty arthritis, diabetes, history of CVA, hypertension, PVCs, diverticulosis of colon, osteoporosis, history of uterine cancer, presents with weakness and possible A-fib. In December 2023 patient had a stroke. At that time she was presented with left hand weakness and MRI showed tiny infarct in the right lateral frontal lobe. Patient is on Plavix and statin. Her left hand weakness has resolved. Patient had a ZIO monitor in January 2024 for couple of weeks and it did not show any A-fib. She was followed with Nuris PAREDES and there is a plan for loop recorder. Patient's [id number]-el-[id number] is a retired [facility] physician who brought the patient to ER today. Last couple days patient was feeling weak and tired and she was feeling skipped beats. Her [id number]-lo-acd who is a retired physician came and checked on her and on iPhone potline monitor Patient rhythm was reading as A-fib. This reason she was brought to the hospital for further workup. Patient currently resting comfortably and hemodynamically stable. Denies any headache. No dizziness. No blurred vision. No earache. Has some runny nose from her sinuses. No sore throat. No cough. No difficulty swallowing. Appetite is okay. Denies any chest pain or shortness of breath. No nausea or vomiting. No abdominal pain. Normal bowel and bladder movements. Denies any blood in the stools. No burning micturition. No hematuria. No rash. Past medical history. As mentioned above. Past surgical history. Biopsy of uterus lining. Breast biopsy. Colonoscopy. Partial removal of eye fluid. Reduction of breast. Cataracts. Tonsillectomy adenoidectomy. Total abdominal hysterectomy with removal of tubes. Social history. Quit smoking 1992. Smoked 1 pack for 30 years. Alcohol occasional. No drug use. Family history. Mother had allergies. Diabetes. Heart disorder. Hypertension. Osteoporosis. Father had gout. Aortic stenosis. Brother had CLL. Aunt had glaucoma. Admission Exam Per Admitting Provider General- Not in distress Head- atraumatic Eyes- PERRL. ENT- oropharynx clear Neck- supple, no JVD. Lungs- clear to auscultation no wheezing or crackles Heart- regular rate and rhythm; no murmur, no gallop. Abdomen- normal bowel sounds, soft, nontender, no distension Extremities- no pretibial edema, no erythema seen Neuro- alert, oriented PERRL, EOMI; no facial palsy; no dysarthria; power 5/5 in all extremities co ordination of movements normal Principal Diagnosis Paroxysmal atrial tachycardia Loop recorder insertion Abnormal urinalysis Discharge Data Allergies Allergy/AdvReac Type Severity Reaction Status Date / Time adhesive Allergy Severe REDNESS, Verified 09/05/24 20:21 BLISTERS, SKIN TEARS OFF Iodinated Contrast Media Allergy Severe ANAPHYLAXIS Verified 09/05/24 20:21 aspirin Allergy Intermediate RASH Verified 09/05/24 20:21 grass pollen-perennial rye, Allergy Intermediate SNEEZING, Verified 09/05/24 20:21 standar CONGESTION iodine Allergy Intermediate TOPICAL Verified 09/05/24 20:21 (BETADINE)- WELTS mold Allergy Intermediate SNEEZING, Verified 09/05/24 20:21 CONGESTION pollen extracts Allergy Intermediate SNEEZING, Verified 09/05/24 20:21 CONGESTION Sulfa (Sulfonamide Allergy Intermediate RASH PER Verified 09/05/24 20:21 Antibiotics) [facility] allopurinol AdvReac Intermediate NAUSEA/VOMI Verified 09/05/24 20:21 TING colchicine AdvReac Intermediate Diarrhea Verified 09/05/24 20:21 oxycodone AdvReac Intermediate GI UPSET Verified 09/05/24 20:21 amlodipine AdvReac Mild Flushing Verified 09/05/24 20:21 Consultations 09/05/24 22:25 ED Decision to Admit Stat 09/06/24 08:00 Consult Cardiology Routine Procedures Performed Operation Date: 09/07/24 12:00 Actual Procedures p Implant Cardiac Event Recorder - Mónica Costa DO Ordered Studies Laboratory Results WBC 10.50 K/ul (4.8-10.8) 09/07/24 06:35 RBC 4.16 M/uL (4.20-5.40) L 09/07/24 06:35 Hgb 11.8 g/dl (12.0-16.0) L 09/07/24 06:35 Hct 37.2 % (37.0-47.0) 09/07/24 06:35 MCV 89.4 fL (80.0-100.0) 09/07/24 06:35 MCH 28.4 pg (25.0-34.0) 09/07/24 06:35 MCHC 31.7 g/dL (32.0-36.0) L 09/07/24 06:35 RDW Std Deviation 44.9 fL (36.4-46.3) 09/07/24 06:35 RDW Coeff of [place] 13.7 % (11.5-14.5) 09/07/24 06:35 Plt Count 341 K/uL (130-400) 09/07/24 06:35 MPV 8.8 fL (9.4-12.4) L 09/07/24 06:35 Immature Gran % (Auto) 0.5 % 09/06/24 05:51 Neut % (Auto) 75.1 % 09/06/24 05:51 Lymph % (Auto) 12.9 % 09/06/24 05:51 [place] % (Auto) 8.9 % 09/06/24 05:51 Eos % (Auto) 2.2 % 09/06/24 05:51 Baso % (Auto) 0.4 % 09/06/24 05:51 Neut # (Auto) 10.40 K/uL (1.40-6.50) H 09/06/24 05:51 Lymph # (Auto) 1.78 K/uL (1.20-3.40) 09/06/24 05:51 [place] # (Auto) 1.23 K/uL (0.11-0.59) H 09/06/24 05:51 Eos # (Auto) 0.31 K/uL (0.00-0.50) 09/06/24 05:51 Baso # (Auto) 0.05 K/uL (0.00-0.20) 09/06/24 05:51 Immature Gran # (Auto) 0.07 K/uL (0.01-0.20) 09/06/24 05:51 Sodium 138 mmol/L (136-145) 09/07/24 06:35 Potassium 3.9 mmol/L (3.5-5.1) 09/07/24 06:35 Chloride 103 mmol/L (98-107) 09/07/24 06:35 Carbon Dioxide 30 mmol/L (21-32) 09/07/24 06:35 Anion Gap 5 (3-11) 09/07/24 06:35 BUN 15 mg/dl (6-23) 09/07/24 06:35 Creatinine 0.64 mg/dl (0.6-1.2) 09/07/24 06:35 Est Cr Clr Drug Dosing 74.2 ml/min 09/07/24 06:35 eGFR 88.73 09/07/24 06:35 BUN/Creatinine Ratio 23.4 (10-20) H 09/07/24 06:35 Glucose 103 mg/dl (70-99(Fasting)) H 09/07/24 06:35 POC Glucose 89 mg/dl (70-99) 09/07/24 11:21 Estimat Average Glucose 146 mg/dl 09/06/24 05:51 Hemoglobin A1c 6.7 % (4.5-5.6) H 09/06/24 05:51 Calcium 9.1 mg/dl (8.6-10.3) 09/07/24 06:35 Magnesium 1.8 mg/dl (1.7-2.4) 09/07/24 06:35 Total Bilirubin 0.3 mg/dl (0.2-1.0) 09/05/24 19:47 AST 14 U/L (13-39) 09/05/24 19:47 ALT 19 U/L (7-52) 09/05/24 19:47 Alkaline Phosphatase 65 U/L (34-104) 09/05/24 19:47 Troponin I High Sens 6.2 pg/ml (0-14) 09/06/24 05:51 Total Protein 7.3 gm/dl (6.0-8.3) 09/05/24 19:47 Albumin 4.1 gm/dl (3.4-5.0) 09/05/24 19:47 Globulin 3.2 gm/dl (2.5-4.0) 09/05/24 19:47 Albumin/Globulin Ratio 1.3 (0.9-2) 09/05/24 19:47 TSH 0.471 uIu/ml (0.300-4.500) 09/05/24 19:47 Urine Color Yellow 09/05/24 21:33 Urine Appearance Clear (Clear) 09/05/24 21:33 Urine pH 5.5 (4.5-7.5) 09/05/24 21:33 Ur Specific [place] 1.010 (1.000-1.030) 09/05/24 21: Urine Protein Negative (Negative) 09/05/24 21: Urine Glucose (UA) Negative (Negative) 09/05/24 21: Urine Ketones Negative (Negative) 09/05/24 21: Urine Blood Negative (Negative) 09/05/24 21: Urine Nitrite Negative (Negative) 09/05/24 21: Urine Bilirubin Negative (Negative) 09/05/24 21: Urine Urobilinogen Negative (Negative) 09/05/24 21:33 Ur Leukocyte Esterase 2+ (Negative) H 09/05/24 21: Urine WBC (Auto) 11-20 /hpf (0-5) H 09/05/24 21: Urine RBC (Auto) 0-2 /hpf (0-2) 09/05/24 21: U Hyaline Cast (Auto) 0-2 /lpf (0-2) 09/05/24 21: U Epithel Cells (Auto) 0-2 /hpf (0-2) 09/05/24 21:33 Urine Bacteria (Auto) None Seen (None Seen) 09/05/24 21:33 Adenovirus (PCR) Not Detected (NotDetected) 09/05/24 21: B. pertussis DNA (PCR) Not Detected (NotDetected) 09/05/24 21:29 B.parapertussis DNA PCR Not Detected (NotDetected) 09/05/24 21: C. pneumoniae DNA (PCR) Not Detected (NotDetected) 09/05/24 21:29 Coronavirus OC43 (PCR) Not Detected (NotDetected) 09/05/24 21:29 Coronavirus HKU1 (PCR) Not Detected (NotDetected) 09/05/24 21: Coronavirus 229E (PCR) Not Detected (NotDetected) 09/05/24 21: SARS-CoV-2 (PCR) Not Detected (NotDetected) 09/05/24 21: Coronavirus NL63 (PCR) Not Detected (NotDetected) 09/05/24 21: Human Metapneumovir PCR Not Detected (NotDetected) 09/05/24 21:29 Influenza Type A (PCR) Not Detected (NotDetected) 09/05/24 21:29 Influenza Type B (PCR) Not Detected (NotDetected) 09/05/24 21:29 M. pneumoniae (PCR) Not Detected (NotDetected) 09/05/24 21:29 Parainfluenza 1 (PCR) Not Detected (NotDetected) 09/05/24 21:29 Parainfluenza 2 (PCR) Not Detected (NotDetected) 09/05/24 21:29 Parainfluenza 3 (PCR) Not Detected (NotDetected) 09/05/24 21:29 Parainfluenza 4 (PCR) Not Detected (NotDetected) 09/05/24 21:29 RSV (PCR) Not Detected (NotDetected) 09/05/24 21:29 Entero/Rhino (PCR) Not Detected (NotDetected) 09/05/24 21:29 Impressions Chest X-Ray 09/05/24 20:10 Exam(s): XR CXR 1 VIEW EXAM: XR Chest, 1 View CLINICAL HISTORY: Reason for exam: Dysrhythmia. TECHNIQUE: Frontal view of the chest. COMPARISON: Prior chest x-ray from July 10, 2017. FINDINGS: Eventration of the right hemidiaphragm. Lungs: Unremarkable. No consolidation. Pleural space: Unremarkable. No pneumothorax. Heart: Unremarkable. No cardiomegaly. Mediastinum: Unremarkable. Normal mediastinal contour. Bones/joints: Unremarkable. No acute fracture. IMPRESSION: No evidence of acute cardiopulmonary process. Electronically signed by: Teresa Salinas MD 09/05/24 22:07 PM Hospital Course (1) Weakness: 83-year-old female with past medical history significant for dyslipidemia, gouty arthritis, diabetes, history of CVA, hypertension, PVCs, diverticulosis of colon , osteoporosis, history of uterine cancer, presents with weakness and possible A-fib. In December 2023 patient had a stroke. At that time she was presented with left hand weakness and MRI showed tiny infarct in the right lateral frontal lobe. Patient is on Plavix and statin. Her left hand weakness has resolved. Patient had a ZIO monitor in January 2024 for couple of weeks and it did not show any A-fib. She was followed with [facility] EP and there is a plan for loop recorder. Patient's isaqnla-pj-buc is a retired [facility] physician who brought the patient to ER today. Last couple days patient was feeling weak and tired and she was feeling skipped beats. Her hfngcaw-id-twz who is a retired physician came and checked on her and on iPhone potline monitor Patient rhythm was reading as A-fib. This reason she was brought to the hospital for further workup. Patient currently resting comfortably and hemodynamically stable. Denies any headache. No dizziness. No blurred vision. No earache. Has some runny nose from her sinuses. No sore throat. No cough. No difficulty swallowing. Appetite is okay. Denies any chest pain or shortness of breath. No nausea or vomiting. No abdominal pain. Normal bowel and bladder movements. Denies any blood in the stools. No burning micturition. No hematuria. No rash. Weakness and tiredness Suspected A-fib Prior ZIO monitor in 2023 showed PACs, no definite atrial fibrillation or flutter. Discussion about loop at the time as well --ECHO: Left ventricle systolic function is normal. EF 55 to 60%. Left atrium size is normal. No significant valvular pathology --Normal TSH --EKG showed sinus rhythm with frequent PACs Monitor and replete electrolytes as needed Appreciate cardiology input S/P Loop Recorder implant by today Advised to follow-up with cardiology on discharge Abnormal urinalysis Asymptomatic Urine culture pinpoint growth Will hold off on any antibiotics for now Advised to follow-up with PCP for culture results and further management H/O CVA Continue Plavix and statin Hypertension Continue lisinopril hydrochlorothiazide monitor Hyperlipidemia continue statin DM II HbA1c 6.7 Not on medications Obesity BMI 38.4 DVT Px: SCDs for now Code Status Full code Disposition Plan to discharge home today Total Time Total Time Spent Total Time Spent (In Minutes): 43 minutes Discharge Plan Discharge Items Patient Disposition: Home - Self-Care Reason For Visit: WEAKNESS, A FIB Discharge Diagnosis: Paroxysmal atrial tachycardia Loop recorder insertion Abnormal urinalysis Activity: Per Instructions section Exercise/Sports: Gradually increase as tolerated Non-emergency contact: Primary Care Provider and Process Area Supervisor Call non-emergency contact if: you have any medication questions, your symptoms worsen, your pain is concerning for you and you have a fever Follow-up/Referrals: Alejandro Simmons, DO [Primary Care Provider] - (Date & Time 09/12/2024 10:00 AM Provider: Lamar Jamil CRNP [facility]) Diet: Carb Consistent or DM2 and Heart Healthy Addtl Attending Provider Instructions: Follow-up with your primary care physician Dr. Alejandro Simmons on 09/12/2024 10:00 AM Follow-up with your front end web designer as advised --Your final urine cultures are pending at the time of discharge. Follow-up with your physician for results. -- Get blood work (basic metabolic panel, magnesium levels) in 1 week and follow-up with your primary care physician/front end web designer for further recommendations. Seek immediate medical attention if your symptoms reoccur or worsen Please review medication list provided on discharge for any medication changes as instructed. Please call if you have any questions or problems. You can reach a [facility] hospitalist on duty at [facility] 24 hours a day by calling [phone] Pending Studies at Discharge: Yes (Urine culture) Stand-Alone Forms: My [facility], Smoking Cessation Medications and DC Order Prescriptions: New magnesium oxide 400 mg (241.3 mg magnesium) Tablet 400 mg PO QAM Qty: 30 1RF potassium chloride 10 mEq capsule, extended release 10 meq PO DAILY Qty: 30 1RF Continued lisinopril-hydrochlorothiazide 20-12.5 mg tablet 1 tab PO BID azelastine 137 mcg (0.1 %) aerosol,spray 2 spray INTRANASAL BID cholecalciferol (vitamin D3) [Vitamin D3] 25 mcg (1,000 unit) Tablet 25 mcg PO QPM fexofenadine 180 mg Tablet 180 mg PO HS propylene glycol 0.6 % Drops 1 drp OPHTHALMIC (EYE) BID Rx Instructions: PRN ALSO ketotifen fumarate [Zaditor] 0.025 % (0.035 %) Drops 1 drp OPHTHALMIC (EYE) BID PRN (Reason: ITCHY EYES) Rx Instructions: administer at least 8 hours apart acetaminophen [Tylenol 8 Hour] 650 mg Tablet Extended Release 1,300 mg PO Q8H Rx Instructions: TAKES 0800, 1600, & 2359 beehjpuxiyke-vtrtlqiu-zqbpos Tablet 1 tab PO DAILY [place] Saline 0.65 % Aerosol,[place] 1 spray INTRANASAL BID Rx Instructions: AND PRN clopidogrel 75 mg Tablet 75 mg PO QAM Qty: 60 0RF rosuvastatin 20 mg tablet 20 mg PO QPM coenzyme Q10 [Co Q-10] 200 mg Capsule 200 mg PO QPM Discharge Orders: Discharge Order (Routine); Ordered 09/08/24 Ordered By: Benjamin Do/Other Patient Handouts: Type 2 Diabetes Admission Data Admit Date/Time: 09/05/24 23:01 Attending Provider: Benjamin Minor Admit Provider: Mauri Crews Primary Care Provider: Alejandro Simmons Other Providers: Mauri Crews; Eder Montanez
[2024-09-07 15:23] VITALS: BP 122/68; PULSE 70; RESP 16; TEMP 98.2; O2SAT 98
== END 2024-09-07 16:30 | disposition home or self-care (01) | DRG 262 ==
LOC: ED 19:21 → 2S 23:01 → SUATTDRO 23:01 → 2S 09-06 02:28